=== PATIENT | female | born 1985 | race Caucasian/White ===

== ENCOUNTER 2017-05-07 06:16 | Day surgery (SDC) | payer MEDICAID, OTHER ==
[~2017-05-07] VITALS: Ht 177.8 cm; Wt 127.0 kg
--- OUTSIDE RECORDS SUMMARY | 2017-05-07 06:24 | XMS REPORT ---
Author Author ANGELA LATIF [facility] Address [facility] [place] [address] Care Team Providers Care Guest Service Representative Name Role Phone ANGELA LATIF Unavailable PROBLEMS Type Condition ICD9-CM Code CEN75-CM Code Onset Dates Condition Status SNOMED Code Problem Morbid obesity due to excess calories E66.01 Active 900661251 Problem Uses contraceptive implant for control Z78.9 Active 204152447 ALLERGIES Substance Reaction Event Type Date Status N.K.D.A. Unknown Non Drug Allergy Feb, Unknown SOCIAL HISTORY No smoking Hx information available PLAN OF CARE Activity Details Follow Up prn Reason: VITAL SIGNS Height 70 in 2016-03-03 Weight 294.1 lbs 2016-03-03 Temperature 97.8 degrees Fahrenheit 2016-03-03 Heart Rate 72 bpm 2016-03-03 Respiratory Rate 16 2016-03-03 BMI 42.19 kg/m2 2016-03-03 Blood pressure systolic 128 mmHg 2016-03-03 Blood pressure diastolic 70 mmHg 2016-03-03 MEDICATIONS No Known Medications RESULTS No Results PROCEDURES Procedure Date Ordered Related Diagnosis Body Site Office Visit, New Pt., Level 3 Mar 03, 2016 IMMUNIZATIONS No Known Immunizations
[2017-05-07] MEDS ORDERED: LACTATED RINGERS 1,000 ML IV ONE (06:30)
[2017-05-07] MEDS ORDERED: ONDANSETRON 4 MG/2 ML (SDV) Z0FRAN IVP ONE (06:30)
[2017-05-07] MEDS ORDERED: pnv (06:32)
--- NOTE | 2017-05-07 06:37 | ED Abdominal Pain ---
General Chief Complaint: Abdominal/GI Problems Stated Complaint: AB PAIN CHEST PAIN Source of Information: Patient History of Present Illness Date Seen by Provider: May 07, 2017 Time Seen by Provider: 06:25 Initial Comments PT ARRIVES VIA POV FROM HOME C/O SEVERE EPIGASTRIC PAIN SINCE 0200 THIS AM-RATES PAIN 8/10 PAIN RADIATES UP INTO CHEST, INTO BACK AND BOTH SHOULDERS NOTHING WORSENS OR IMPROVES PAIN--TRIED BAKING SODA, PEPCID AND BENADRYL WITHOUT RELIEF C/O NAUSEA AND VOMITED X 3 NO DIARRHEA NO SHORTNESS OF BREATH NO FEVER PT HAS HAD BLOATING/PRESSURE IN UPPER ABDOMEN IN PAST,AND HAS ALWAYS GONE AWAY WITH THE ABOVE MEASURES, BUT HAS NOT HAD PAIN LIKE THIS HAD BIG EASTER DINNER YESTERDAY AFTERNOON, THEN HAD LEFTOVERS AROUND 2100 LAST PM--[place], [place], ROLL NO ONE ELSE IS ILL PT IS 12 WEEKS --IS AB 0 NO LOWER ABDOMINAL PAIN/ PELVIC PAIN OR VAGINAL BLEEDING NO URINARY SYMPTOMS PCP/OB: DR. CANTU Allergies and Home Medications Allergies Coded Allergies: No Known Drug Allergies (Unverified , 05/07/17) Patient Home Medication List Home Medication List Reviewed: Yes Review of Systems Constitutional: no symptoms reported Respiratory: No Symptoms Reported Cardiovascular: See HPI Gastrointestinal: See HPI Genitourinary: See HPI Musculoskeletal: see HPI Skin: no symptoms reported Psychiatric/Neurological: No Symptoms Reported Endocrine: No Symptoms Reported Hematologic/Lymphatic: No Symptoms Reported Past Jgmdghy-Hcgngj-Pyxtlb Hx Patient Social History Alcohol Use: Denies Use Recreational Drug Use: No Smoking Status: Never a Smoker Recent Foreign Travel: No Contact w/Someone Who Travel: No Surgeries History of Surgeries: No Respiratory History of Respiratory Disorde: No Cardiovascular History of Cardiac Disorders: No Neurological History of Neurological Disord: No Reproductive System : Yes Last Menstrual Period: Feb 08, 2017 Hx : 6 Hx Para: 5 Hx Total # of Abortions (Spona: 0 Hx Reproductive Disorders: No Female Reproductive Disorders: Denies Genitourinary History of Genitourinary Disor: No Gastrointestinal History of Gastrointestinal Di: No Musculoskeletal History of Musculoskeletal Dis: No Endocrine History of Endocrine Disorders: No HEENT History of HEENT Disorders: No Cancer History of Cancer: No Psychosocial History of Psychiatric Problem: No Integumentary History of Skin or Integumenta: No Blood Transfusions History of Blood Disorders: No Physical Exam Vital Signs VS - Last 72 Hours, by Label 05/07/17 06:25 Temp 96.5 Pulse 74 Resp 18 B/P (MAP) 125/64 (84) Pulse Ox 100 O2 Delivery Room Air Capillary Refill : General Appearance: WD/WN, obese, other (ANXIOUS) HEENT: PERRL/EOMI, No scleral icterus (R), No scleral icterus (L) Neck: normal inspection Respiratory: chest non-tender, normal breath sounds, no respiratory distress, no accessory muscle use Cardiovascular: normal peripheral pulses, regular rate, rhythm, no edema, no JVD, no murmur Gastrointestinal: normal bowel sounds, no organomegaly, no pulsatile mass, No distended, No guarding, No rebound, tenderness (RUQ AND EPIGASTRIC AREA), No hernia, No mass Extremities: normal inspection, no pedal edema, no calf tenderness, normal capillary refill Back: normal inspection, no CVA tenderness, no vertebral tenderness 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, no motor/sensory deficits, alert, oriented x 3 Skin: normal color, warm/dry, No rash Progress/Results/Core Measures Results/Orders Lab Results Laboratory Tests Test 05/07/17 06:25 Range/Units White Blood Count 6.6 4.3-11.0 10^3/uL Red Blood Count 3.85 L 4.35-5.85 10^6/uL Hemoglobin 12.0 11.5-16.0 G/DL Hematocrit 34 L 35-52 % Mean Corpuscular Volume 88 80-99 FL Mean Corpuscular Hemoglobin 31 25-34 PG Mean Corpuscular Hemoglobin Concent 35 32-36 G/DL Red Cell Distribution Width 13.1 10.0-14.5 % Platelet Count 169 130-400 10^3/uL Mean Platelet Volume 10.7 H 7.4-10.4 FL Neutrophils (%) (Auto) 82 H 42-75 % Lymphocytes (%) (Auto) 13 12-44 % Monocytes (%) (Auto) 4 0-12 % Eosinophils (%) (Auto) 1 0-10 % Basophils (%) (Auto) 0 0-10 % Neutrophils # (Auto) 5.4 1.8-7.8 X 10^3 Lymphocytes # (Auto) 0.9 L 1.0-4.0 X 10^3 Monocytes # (Auto) 0.3 0.0-1.0 X 10^3 Eosinophils # (Auto) 0.1 0.0-0.3 10^3/uL Basophils # (Auto) 0.0 0.0-0.1 10^3/uL Sodium Level 137 135-145 MMOL/L Potassium Level 3.8 3.6-5.0 MMOL/L Chloride Level 106 98-107 MMOL/L Carbon Dioxide Level 23 21-32 MMOL/L Anion Gap 8 5-14 MMOL/L Blood Urea Nitrogen 7 7-18 MG/DL Creatinine 0.67 0.60-1.30 MG/DL Estimat Glomerular Filtration Rate > 60 BUN/Creatinine Ratio 10 Glucose Level 137 H 70-105 MG/DL Calcium Level 8.9 8.5-10.1 MG/DL Total Bilirubin 0.5 0.1-1.0 MG/DL Aspartate Amino Transf (AST/SGOT) 11 5-34 U/L Alanine Aminotransferase (ALT/SGPT) 18 0-55 U/L Alkaline Phosphatase 44 40-136 U/L Troponin I < 0.30 <0.30 NG/ML Total Protein 6.8 6.4-8.2 GM/DL Albumin 4.0 3.2-4.5 GM/DL Amylase Level 45 25-125 U/L Lipase 19 8-78 U/L Human Chorionic Gonadotropin, Quant 20362 H <5 MIU/ML My Orders Orders - NEREYDA WOODARD DO Saline Lock/Iv-Start (05/07/17 06:30) Amylase (05/07/17 06:30) Cbc With Automated Diff (05/07/17 06:30) Comprehensive Metabolic Panel (05/07/17 06:30) Hcg,Quantitative (05/07/17 06:30) Lipase (05/07/17 06:30) Troponin I (05/07/17 06:30) Abo Rh Type (05/07/17 06:30) Us Abdomen Complete [id number] (05/07/17 06:30) Us Ob Single Fetus<14 [id number] (05/07/17 06:30) Saline Lock/Iv-Start (05/07/17 06:30) Lactated Ringers (Lr 1000 Ml Iv Solution (05/07/17 06:30) Ondansetron Injection (Zofran Injectio (05/07/17 06:30) Ua Culture If Indicated (05/07/17 06:41) Fentanyl Injection (Sublimaze Injection (05/07/17 06:41) Medications Given in ED Current Medications Medications Dose Ordered Sig/Gurdeep Route Start Time Stop Time Status Last Admin Dose Admin Lactated Ringer's 1,000 ml @ 0 mls/hr Q0M ONCE IV 05/07/17 06:30 05/07/17 06:33 DC 05/07/17 06:35 0 MLS/HR Ondansetron HCl 4 mg ONCE ONCE IVP 05/07/17 06:30 05/07/17 06:33 DC 05/07/17 06:35 4 MG Vital Signs/I&O Vital Sign - Last 12Hours 05/07/17 06:25 Temp 96.5 Pulse 74 Resp 18 B/P (MAP) 125/64 (84) Pulse Ox 100 O2 Delivery Room Air Progress Note : Progress Note PAIN MUCH IMPROVED WITH FENTANYL. NAUSEA RESOLVED WITH ZOFRAN Diagnostic Imaging Comments ULTRASOUND--NORMAL 12 WEEKS 4 DAYS IUP, NORMAL FHR OF 150. MULTIPLE GALLSTONES, WITH STONE LODGED IN NECK OF GALLBLADDER, WITH DUCTAL DILATION OF 7 MM, NO WALL THICKENING OR OTHER EVIDENCE OF ACUTE CHOLECYSTITIS--PER TECH REPORT AT 0755, AND PER RADIOLOGIST REPORT @ 0838 Reviewed: Reviewed by Me Departure Communication (Admissions) Progress Notes 0800--SPOKE WITH DR. MCINTOSH, ACCEPTS PT FOR ADMIT. WILL CONSULT OB 0801--SPOKE WITH DR. HARRINGTON, FOR OB CONSULT. Impression Impression: Primary Impression: Cholelithiasis affecting in first trimester, antepartum Disposition: ADMITTED INPATIENT Condition: Improved Admissions Decision to Admit Reason: Admit from ER (General) Decision to Admit/Date: May 07, 2017 Time/Decision to Admit Time: 08:00 Departure-Patient Inst. Referrals: PAULO CANTU DO (PCP) Primary Care Physician NEREYDA WOODARD DO May 07, 2017 06:37
[2017-05-07 06:40] LABS: BASOPHILS % (AUTO) 0 % (0-10); EOSINOPHILS # (AUTO) 0.1 10^3/uL (0.0-0.3); EOSINOPHILS % (AUTO) 1 % (0-10); HEMATOCRIT 34 % (35-52); LYMPHOCYTES # (AUTO) 0.9 X 10^3 (1.0-4.0); LYMPHOCYTES % (AUTO) 13 % (12-44); MEAN CORPUSCULAR HEMOGLOBIN 31 PG (25-34); MEAN CORPUSCULAR HGB CONC 35 G/DL (32-36); MEAN CORPUSCULAR VOLUME 88 FL (80-99); MEAN PLATELET VOLUME 10.7 FL (7.4-10.4); MONOCYTES # (AUTO) 0.3 X 10^3 (0.0-1.0); MONOCYTES % (AUTO) 4 % (0-12); NEUTROPHILS # (AUTO) 5.4 X 10^3 (1.8-7.8); NEUTROPHILS % (AUTO) 82 % (42-75); PLATELET COUNT 169 10^3/uL (130-400); RED BLOOD COUNT 3.85 10^6/uL (4.35-5.85); RED CELL DISTRIBUTION WIDTH 13.1 % (10.0-14.5); WHITE BLOOD COUNT 6.6 10^3/uL (4.3-11.0)
[2017-05-07] MEDS ORDERED: fentaNYL INJECTION 100 MCG/2 ML AMP IVP STA ×2 (06:41→08:09)
[2017-05-07 07:03] LABS: ALANINE AMINOTRANSFERASE 18 U/L (0-55); ALKALINE PHOSPHATASE 44 U/L (40-136); AMYLASE 45 U/L (25-125); BILIRUBIN,TOTAL 0.5 MG/DL (0.1-1.0); BUN/CREATININE RATIO 10; CALCIUM 8.9 MG/DL (8.5-10.1); CARBON DIOXIDE 23 MMOL/L (21-32); CHLORIDE 106 MMOL/L (98-107); CREATININE SERUM 0.67 MG/DL (0.60-1.30); GFR ESTIMATED > 60; GLUCOSE 137 MG/DL (70-105); LIPASE 19 U/L (8-78); POTASSIUM 3.8 MMOL/L (3.6-5.0); SODIUM 137 MMOL/L (135-145); TOTAL PROTEIN 6.8 GM/DL (6.4-8.2)
[2017-05-07 08:30] LABS: BILIRUBIN,URINE NEGATIVE (NEGATIVE); CLARITY,URINE SLIGHTLY CLOUDY; COLOR,URINE YELLOW; GLUCOSE, URINE (UA) NEGATIVE (NEGATIVE); KETONES,URINE 1+ (NEGATIVE); LEUKOCYTE ESTERASE ,URINE 1+ (NEGATIVE); NITRITE,URINE NEGATIVE (NEGATIVE); PH,URINE 8 (5-9); PROTEIN,URINE NEGATIVE (NEGATIVE); UROBILINOGEN,URINE NORMAL (NORMAL)
--- NOTE | 2017-05-07 08:33 | Diagnostic Imaging Report ---
INDICATION: Acute onset of abdominal pain earlier in the day. TECHNIQUE: Multiple real-time dimas scale sonographic images of the abdomen. CORRELATION STUDY: None FINDINGS: LIVER: Mild increased echotexture within the visualized portions of the liver. There is normal, hepatopedal direction of flow within the main portal vein. Liver length 18 cm. GALLBLADDER: Multiple shadowing gallstones are present. This includes what appears to be non-mobile enlarged in the gallbladder neck. COMMON BILE DUCT: Mildly dilated at 7 mm. PANCREAS: Limited in visualization. The visualized portions appearing unremarkable. SPLEEN: Borderline at 12.5 x 5.4 x 5.9 cm. ABDOMINAL AORTA: Unremarkable. INFERIOR VENA CAVA: Limited in visualization. RIGHT KIDNEY: 11.6 cm. Unremarkable. LEFT KIDNEY: 14.0 cm. Unremarkable. OTHER: None. IMPRESSION: 1. Cholelithiasis. Additional stone appears to be lodged in the gallbladder neck. Additionally, there is mild dilatation of the common bile duct. 2. Mild increased echogenicity of the liver parenchyma, borderline in size, may reflect some degree of hepatic steatosis. Dictated by: Dictated on workstation # [id number]
--- NOTE | 2017-05-07 08:34 | Diagnostic Imaging Report ---
PROCEDURE: US OB SINGLE FETUS <14 WKS. TECHNIQUE: Multiple, limited real-time grayscale images were obtained over the gravid uterus in various projections. INDICATION: Acute onset abdominal pain. FINDINGS: Limited obstetrical sonogram imaging demonstrates an early viable intrauterine . The gestational sac has a morphological configuration appearing unremarkable. No abnormal perigestational fluid collections. The crown/rump length is 5.95 cm for an estimated age of 12 weeks 4 days. cardiac activity was 150 BPM. Imaging of the bilateral maternal adnexa demonstrates nonvisualization of the ovaries. This could be owing to obscuration by bowel gas or positioning. No significant free pelvic fluid. IMPRESSION: Very limited obstetrical sonogram imaging demonstrates an early viable intrauterine with an estimated age of 12 weeks 4 days for a sonographically estimated date of delivery of 11/15/2017. Dictated by: Dictated on workstation # [id number]
[2017-05-07 08:47] LABS: AMORPHOUS SEDIMENT,UR LARGE AMOR PHOSPHATE /LPF; BACTERIA,URINE NEGATIVE /HPF; SQUAMOUS EPITHELIAL CELL,UR RARE /HPF
[2017-05-07 09:00] VITALS: BP 107/61
[2017-05-07] MEDS ORDERED: ONDANSETRON 4 MG/2 ML (SDV) Z0FRAN IV PRN (09:30)
[2017-05-07] MEDS ORDERED: CATHETER FLUSH 10 ML SYR IV PRN (09:30)
[2017-05-07] MEDS ORDERED: INFLUENZA TRIvalent 2017-2018 0.5 ML/45 MCG SYR IM ONE (09:45)
[2017-05-07] MEDS: D5 1/2 NS W/KCL 20 MEQ/L 1,000 ML IV SCH ×3 (09:54→23:51)
[2017-05-07] MEDS ORDERED: PNV1TABL81 PO (11:38)
[2017-05-07] MEDS ORDERED: ONDA4TAB11 PO (11:38)
[2017-05-07 12:30] VITALS: BP 109/55
[2017-05-07] MEDS: fentaNYL INJECTION 100 MCG/2 ML AMP IV PRN (13:43)
[2017-05-07 15:28] VITALS: BP 108/58
--- NOTE | 2017-05-07 18:53 | History & Physicial ---
History of Present Illness History of Present Illness Reason for visit/HPI acute onset of epigastric pain, radiating to the back. Evaluation has confirmed gallstones with clinical concern for early acute cholecystitis Date of Admission May 07, 2017 at 8:00 am Date Seen by Provider: May 07, 2017 Time Seen by Provider: 18:15 I consulted on this patient on 05/07/17 18:49 Attending Physician Urszula Millan MD Admitting Physician Karen Hernández DO Consult Allergies and Home Medications Allergies Coded Allergies: No Known Drug Allergies (Unverified , 05/07/17) Home Medications Ondansetron 4 Mg Tab.rapdis, 4 MG PO UD PRN for NAUSEA/VOMITING-1ST LINE, ( Reported) Pnv No.122/Iron/Folic Acid 1 Each Tablet, 1 TAB PO DAILY, (Reported) Patient Home Medication List Home Medication List Reviewed: Yes Past Ujktemz-Ykqxgu-Efpkyf Hx Patient Social History Marrital Status: Employed/Student: unemployed Alcohol Use: Denies Use Recreational Drug Use: No Smoking Status: Never a Smoker 2nd Hand Smoke Exposure: No Physical Abuse Screen: No Sexual Abuse: No Recent Foreign Travel: No Contact w/other who traveled: No Recent Hopitalizations: No Recent Infectious Disease Expo: No Seasonal Allergies Seasonal Allergies: No Surgeries No Respiratory No Cardiovascular No Neurological No Reproductive System : Yes Expected Date of Delivery: Nov 18, 2017 Last Menstrual Period: Feb 08, 2017 Hx : 6 Hx Para: 5 Hx Total # of Abortions (Spona: 0 Hx Reproductive Disorders: No Female Reproductive Disorders: Denies Genitourinary No Gastrointestinal Yes (cholylithiasis 05/07/17) Gall Bladder Disease Musculoskeletal No Endocrine History of Endocrine Disorders: No HEENT History of HEENT Disorders: No Cancer No Psychosocial History of Psychiatric Problem: No Integumentary History of Skin or Integumenta: Yes (Hydradynitis suppertiva) Blood Transfusions History of Blood Disorders: No Constitutional: no symptoms reported EENTM: no symptoms reported Respiratory: no symptoms reported Cardiovascular: no symptoms reported Gastrointestinal: see HPI Genitourinary: no symptoms reported Musculoskeletal: no symptoms reported Skin: no symptoms reported Psychiatric/Neurological: No Symptoms Reported Physical Exam Vital Signs Vital Signs - First Documented 05/07/17 06:25 Temp 96.5 Pulse 74 Resp 18 B/P (MAP) 125/64 (84) Pulse Ox 100 O2 Delivery Room Air Capillary Refill : Less Than 3 Seconds General Appearance: No Apparent Distress Neck: Normal Inspection Respiratory: Lungs Clear Cardiovascular: Regular Rate, Rhythm Gastrointestinal: Non Tender, Soft Neurologic/Psychiatric: Alert, Oriented x3 Skin: Normal Color Assessment/Plan Assessment and Plan lady with gallstones, dilated common bile duct and clinical concern for early acute cholecystitis. End of first term . Reasonable to institute intravenous antibiotics and observe her. Should her pain continue, it would be appropriate to proceed with minimally invasive cholecystectomy. I have explicitly discussed the risk of miscarriage, emphasizing the importance of addressing her surgical condition appropriately. She seems to comprehend. I have also discussed her condition with Dr. Underwood, one of our obstetricians, and she confirms the safety of using antibiotics, general anesthetic etc. with a very low incidence of miscarriage at this time of her . Problems: Admission Diagnosis Admission Status: Observation Clinical Quality Measures DVT/VTE Risk/Contraindication: Risk Factor Score Per Nursin RFS Level Per Nursing on Admit: 1=Low/No VTE PPX URSZULA MILLAN MD May 07, 2017 6:53 pm
[2017-05-07 19:18] VITALS: BP 120/59
[2017-05-07] MEDS: AMPICILLIN INJECTION 2,000 MG in NS (IVPB) 100 ML IV SCH (20:25)
[2017-05-08] MEDS: AMPICILLIN INJECTION 2,000 MG in NS (IVPB) 100 ML IV SCH ×3 (00:08→12:35)
[2017-05-08 00:47] VITALS: BP 116/53
[2017-05-08 04:45] VITALS: BP 115/61
[2017-05-08] MEDS: D5 1/2 NS W/KCL 20 MEQ/L 1,000 ML IV SCH ×2 (07:54→12:35)
[2017-05-08 08:00] VITALS: BP 102/47
[2017-05-08 08:00] LABS: BASOPHILS % (AUTO) 0 % (0-10); EOSINOPHILS # (AUTO) 0.1 10^3/uL (0.0-0.3); EOSINOPHILS % (AUTO) 1 % (0-10); HEMATOCRIT 33 % (35-52); HEMOGLOBIN 11.6 G/DL (11.5-16.0); LYMPHOCYTES # (AUTO) 1.9 X 10^3 (1.0-4.0); LYMPHOCYTES % (AUTO) 35 % (12-44); MEAN CORPUSCULAR HEMOGLOBIN 31 PG (25-34); MEAN CORPUSCULAR HGB CONC 35 G/DL (32-36); MEAN CORPUSCULAR VOLUME 89 FL (80-99); MEAN PLATELET VOLUME 10.5 FL (7.4-10.4); MONOCYTES # (AUTO) 0.4 X 10^3 (0.0-1.0); MONOCYTES % (AUTO) 7 % (0-12); NEUTROPHILS # (AUTO) 3.3 X 10^3 (1.8-7.8); NEUTROPHILS % (AUTO) 58 % (42-75); PLATELET COUNT 162 10^3/uL (130-400); RED BLOOD COUNT 3.74 10^6/uL (4.35-5.85); RED CELL DISTRIBUTION WIDTH 13.6 % (10.0-14.5); WHITE BLOOD COUNT 5.6 10^3/uL (4.3-11.0)
[2017-05-08 08:22] LABS: ALANINE AMINOTRANSFERASE 14 U/L (0-55); ALBUMIN 3.5 GM/DL (3.2-4.5); ALKALINE PHOSPHATASE 43 U/L (40-136); AMYLASE 36 U/L (25-125); BILIRUBIN,TOTAL 0.5 MG/DL (0.1-1.0); BUN/CREATININE RATIO 5; CALCIUM 8.5 MG/DL (8.5-10.1); CARBON DIOXIDE 21 MMOL/L (21-32); CHLORIDE 109 MMOL/L (98-107); CREATININE SERUM 0.62 MG/DL (0.60-1.30); GFR ESTIMATED > 60; GLUCOSE 100 MG/DL (70-105); LIPASE 16 U/L (8-78); POTASSIUM 3.6 MMOL/L (3.6-5.0); SODIUM 138 MMOL/L (135-145)
--- NOTE | 2017-05-08 08:57 | Progress Note-Standard ---
Standard Progress Note Progress Notes/Assess & Plan Date Seen by Provider: May 08, 2017 Time Seen by Provider: 08:10 Progress/Assessment & Plan Epigastric abdominal pain radiating around the subcostal region on the right side more severe. Slight tenderness on examination. Suspect she has acute cholecystitis and therefore it is prudent to proceed with cholecystectomy. Operative details, low incidence of miscarriage etc. discussed with the patient and she seems to be in agreement. Final Diagnosis Gallstones with acute cholecystitis URSZULA MCINTOSH MD May 08, 2017 8:57 am
--- NOTE | 2017-05-08 08:58 | Progress Note-Pre Operative ---
Pre-Operative Progress Note H&P Reviewed The H&P was reviewed, patient examined and no changes noted. Date Seen by Provider: May 08, 2017 Time Seen by Provider: 08:10 Date H&P Reviewed: May 08, 2017 Time H&P Reviewed: 08:57 Pre-Operative Diagnosis: Gallstones with acute cholecystitis URSZULA MCINTOSH MD May 08, 2017 8:58 am
[2017-05-08] MEDS: fentaNYL INJECTION 100 MCG/2 ML AMP IV PRN ×5 (10:01→23:28)
[2017-05-08 12:00] VITALS: BP 103/57
[2017-05-08] MEDS ORDERED: proPOfol 200 MG/20 ML (DIPRIVAN) VIAL IV ONE (13:14)
[2017-05-08] MEDS ORDERED: LIDOCAINE PF 2% 5 ML (XYLOCAINE) VIAL ONE (13:14)
[2017-05-08] MEDS ORDERED: ONDANSETRON 4 MG/2 ML (SDV) Z0FRAN ONE (13:14)
[2017-05-08] MEDS ORDERED: fentaNYL INJECTION 100 MCG/2 ML AMP ONE ×2 (13:14→14:22)
[2017-05-08] MEDS ORDERED: SEVOFLURANE (ULTANE) 15 ML INHAL SOLN ONE ×6 (13:14→15:08)
[2017-05-08] MEDS ORDERED: BUP/EPI 0.5% 1:200,000 (SENSORCAINE) 30 ML VIAL ONE (13:28)
[2017-05-08] MEDS: LACTATED RINGERS 1,000 ML IV PRN ×2 (13:49→14:35)
[2017-05-08] MEDS ORDERED: AMPICILLIN 1000 MG INJECTION (IV/IM) ONE (14:02)
[2017-05-08] MEDS ORDERED: ROCURONIUM 10 MG/ML 5 ML SYRINGE IV ONE (14:15)
[2017-05-08] MEDS ORDERED: SUCCINYLCHOLINE INJ 100 MG/5 ML SYR ONE (14:15)
[2017-05-08] MEDS ORDERED: HYDROmorphone (DILAUDID) 2 MG/ML VIAL ONE (14:55)
[2017-05-08] MEDS ORDERED: morphine INJ 10 MG/ML 1ML (SYR OR VIAL) ONE (14:55)
[2017-05-08] MEDS ORDERED: MEPERIDINE (DEMEROL) INJ 50 MG/ML ONE (14:56)
--- NOTE | 2017-05-08 15:13 | Operative Report ---
Operative Report Date of Procedure/Surgery May 08, 2017 Surgeon (s) URSZULA MCINTOSH MD Bag Loader (s): N/A Post-Operative Diagnosis Gallstones with acute cholecystitis Procedure Performed Robotic-assisted cholecystectomy Description of Procedure Anesthesia Type: General Estimated blood loss (mL): Minimal Specimen(s) collected/removed Gallbladder with stones Description of the Procedure Indication for the procedure: This lady, who is 12 weeks , presented with symptomatic gallstones and features of early acute cholecystitis. After a brief course of intravenous antibiotics, due to persistent symptoms, it was felt reasonable to proceed with cholecystectomy using minimally invasive technique. Informed consent was obtained after reviewing the operative details and risks of miscarriage, potential for postoperative ERCP etc. Description of the procedure: She was placed supine on the operative table and general anesthesia induced using an endotracheal tube. A gram of ampicillin was administered intravenously as prophylaxis against wound infection. Sequential compression devices were placed around her legs, to minimize the risk of venous thrombosis. Abdomen was prepared and draped in the usual sterile manner. A supraumbilical incision was made and pneumoperitoneum established using a Veress needle. Intra -abdominal pressure was maintained at 15 mmHg, using carbon dioxide insufflation. A 12 mm trocar was placed and anatomy visualized using the high definition, 3-dimensional laparoscope, associated with da Nuha system. Gallbladder was acutely inflamed with severe edema around the body of the gallbladder. Under direct view, I placed an 8 mm trocar over each side of the abdomen, followed by a 5 mm trocar over the left upper quadrant. The patient was then turned into reverse Trendelenburg position, with the right side tilted up. The robotic system was then in place. The fundus of the gallbladder was retracted cephalad and the infundibulum grasped with Cadiere forceps. Inflamed tissue around the neck of the gallbladder was incised using the hook cautery, delineating the cystic duct and the artery. Both were controlled between locking clips. Cholecystectomy was completed using the hook cautery itself. Subhepatic space was irrigated with saline and the gallbladder placed in an Endo Catch bag, being removed via the infraumbilical trocar site. The fascia over this incision was closed using #1 Vicryl using the Tyron Monroe device, under direct laparoscopic view. Subcutaneous tissue was approximated using 3-0 Vicryl and skin with 4-0 Vicryl, in a subcuticular fashion. 0.5 percent Marcaine with epinephrine was infiltrated along the incisions, both pre-and family and at the conclusion of the operation. She tolerated the procedure well, was extubated in the operating room and taken to the recovery room in a stable condition. Findings of the Procedure See op report Allergies and Home Medications Allergies Coded Allergies: No Known Drug Allergies (Unverified , 05/07/17) Home Medications Ondansetron 4 Mg Tab.rapdis, 4 MG PO UD PRN for NAUSEA/VOMITING-1ST LINE, ( Reported) Pnv No.122/Iron/Folic Acid 1 Each Tablet, 1 TAB PO DAILY, (Reported) Patient Home Medication List Home Medication List Reviewed: Yes URSZULA MCINTOSH MD May 08, 2017 3:13 pm
--- NOTE | 2017-05-08 15:14 | Consultation (CHS) ---
HPI History of Present Illness: Late entry Consult note - patient seen on 05/07/17. This is a [address] Hernández'ellyn who present to ER w/ onset of RUQ abdominal pain over night. Pt reports pain radiates to her back on the R. Denies n/v. No known similar symptoms previously. Patient ate late in the evening and thought it may be related to that. Pain medication in the ER improved pain but when it wears off the pain returns. Denies n/v/d. Patient is 12 weeks . Has had uncomplicated thus far. No previous issues or complications. Date seen by provider: May 07, 2017 Time Seen by Provider: 08:30 Attending Physician Filemon Millan MD PCP Karen Hernández DO Consult Date of Admission May 07, 2017 at 08:00 Home Medications Home Medications Reviewed patient Home Medication Reconciliation performed by pharmacy medication reconciliations instructor adjunct surgical technician and/or nursing. Patients Allergies have been reviewed. Allergies Coded Allergies: No Known Drug Allergies (Unverified , 05/07/17) XOP-Xrouai-Uiifru Hx Patient Social History Marrital Status: Employed/Student: unemployed Alcohol Use: Denies Use Recreational Drug Use: No Smoking Status: Never a Smoker 2nd Hand Smoke Exposure: No Recent Foreign Travel: No Contact w/other who traveled: No Recent Hopitalizations: No Recent Infectious Disease Expo: No Physical Abuse Screen: No Sexual Abuse: No Past Medical History Hiddratenitis suppuritiva Review of Systems (CHC) Constitutional: see HPI Reviewed Test Results Reviewed Test Results Lab Laboratory Tests 05/07/17 06:25: White Blood Count 6.6, Red Blood Count 3.85L, Hemoglobin 12.0, Hematocrit 34L, Mean Corpuscular Volume 88, Mean Corpuscular Hemoglobin 31, Mean Corpuscular Hemoglobin Concent 35, Red Cell Distribution Width 13.1, Platelet Count 169, Mean Platelet Volume 10.7H, Neutrophils (%) (Auto) 82H, Lymphocytes (%) (Auto) 13, Monocytes (%) (Auto) 4, Eosinophils (%) (Auto) 1, Basophils (%) (Auto) 0, Neutrophils # (Auto) 5.4, Lymphocytes # (Auto) 0.9L, Monocytes # (Auto) 0.3, Eosinophils # (Auto) 0.1, Basophils # (Auto) 0.0, Sodium Level 137, Potassium Level 3.8, Chloride Level 106, Carbon Dioxide Level 23, Anion Gap 8, Blood Urea Nitrogen 7, Creatinine 0.67, Estimat Glomerular Filtration Rate > 60, BUN/ Creatinine Ratio 10, Glucose Level 137H, Calcium Level 8.9, Total Bilirubin 0.5 , Aspartate Amino Transf (AST/SGOT) 11, Alanine Aminotransferase (ALT/SGPT) 18, Alkaline Phosphatase 44, Troponin I < 0.30, Total Protein 6.8, Albumin 4.0, Amylase Level 45, Lipase 19, Human Chorionic Gonadotropin, Quant [id number] 05/07/17 08:17: Urine Color YELLOW, Urine Clarity SLIGHTLY CLOUDY, Urine pH 8, Urine Specific [place] 1.010L, Urine Protein NEGATIVE, Urine Glucose (UA) NEGATIVE, Urine Ketones 1+H, Urine Nitrite NEGATIVE, Urine Bilirubin NEGATIVE, Urine Urobilinogen NORMAL, Urine Leukocyte Esterase 1+H, Urine RBC (Auto) NEGATIVE, Urine RBC NONE, Urine WBC NONE, Urine Squamous Epithelial Cells RARE, Urine Crystals NONE, Urine Amorphous Sediment LARGE EVGENY PHOSPHATEH, Urine Bacteria NEGATIVE, Urine Casts NONE, Urine Mucus NEGATIVE, Urine Culture Indicated NO 05/08/17 07:50: White Blood Count 5.6, Red Blood Count 3.74L, Hemoglobin 11.6, Hematocrit 33L, Mean Corpuscular Volume 89, Mean Corpuscular Hemoglobin 31, Mean Corpuscular Hemoglobin Concent 35, Red Cell Distribution Width 13.6, Platelet Count 162, Mean Platelet Volume 10.5H, Neutrophils (%) (Auto) 58, Lymphocytes (%) (Auto) 35 , Monocytes (%) (Auto) 7, Eosinophils (%) (Auto) 1, Basophils (%) (Auto) 0, Neutrophils # (Auto) 3.3, Lymphocytes # (Auto) 1.9, Monocytes # (Auto) 0.4, Eosinophils # (Auto) 0.1, Basophils # (Auto) 0.0, Sodium Level 138, Potassium Level 3.6, Chloride Level 109H, Carbon Dioxide Level 21, Anion Gap 8, Blood Urea Nitrogen 3L, Creatinine 0.62, Estimat Glomerular Filtration Rate > 60, BUN/ Creatinine Ratio 5, Glucose Level 100, Calcium Level 8.5, Total Bilirubin 0.5, Aspartate Amino Transf (AST/SGOT) 9, Alanine Aminotransferase (ALT/SGPT) 14, Alkaline Phosphatase 43, Total Protein 6.0L, Albumin 3.5, Amylase Level 36, Lipase 16 Physical Exam-([facility]) Physical Exam Vital Signs VS - Last 72 Hours, by Label 05/07/17 05/07/17 05/07/17 05/07/17 06:25 08:41 09:00 12:30 Temp 96.5 100.0 98.2 99.0 Pulse 74 72 83 66 Resp 18 14 20 14 B/P (MAP) 125/64 (84) 107/62 107/61 (76) 109/55 (73) Pulse Ox 100 96 98 98 O2 Delivery Room Air Room Air Room Air Room Air 05/07/17 05/07/17 05/08/17 05/08/17 15:28 19:18 00:47 04:45 Temp 98.7 98.6 98.5 97.9 Pulse 73 77 70 67 Resp 14 14 17 18 B/P (MAP) 108/58 (75) 120/59 (79) 116/53 (74) 115/61 (79) Pulse Ox 99 99 99 98 O2 Delivery Room Air Room Air Room Air Room Air 05/08/17 05/08/17 08:00 12:00 Temp 98.1 98.8 Pulse 63 70 Resp 16 16 B/P (MAP) 102/47 (65) 103/57 (72) Pulse Ox 98 100 O2 Delivery Room Air Room Air Capillary Refill : Less Than 3 Seconds General Appearance: WD/WN, no apparent distress HEENT: PERRL/EOMI Respiratory: lungs clear, normal breath sounds, no respiratory distress, no accessory muscle use Cardiovascular: regular rate, rhythm Gastrointestinal: soft, No guarding, No rebound, tenderness (RUQ) Neurologic/Psychiatric: alert, normal mood/affect, oriented x 3 Skin: normal color, warm/dry Assessment/Plan Assessment/Plan Admission Status: Observation (1) Cholelithiasis affecting in first trimester, antepartum Status: Acute Assessment & Plan: Admitted to Dr. Millan for surgical management. Will doppler FHT q shift. Pain controlled with current regimen. Clinical Quality Measures DVT/VTE Risk/Contraindication: Risk Factor Score Per Nursin RFS Level Per Nursing on Admit: 1=Low/No VTE PPX MARICRUZ HARRINGTON DO May 08, 2017 15:14
[2017-05-08] MEDS ORDERED: HYDROcodone/APAP 5 MG/325 MG (LORTAB) TAB PO PRN (15:15)
[2017-05-08] MEDS ORDERED: ACHD5005 PO (15:15)
--- NOTE | 2017-05-08 15:15 | Discharge Inst-Simple/Standard ---
Discharge Inst-Standard Discharge Medications New, Converted or Re-Newed RX: RX on Chart Patient Instructions/Follow Up Plan of Care/Instructions/FU: Band-Aids of prior to discharge. Follow-up in week. To use incentive spirometry at home Activity as Tolerated: Yes Discharge Diet: No Restrictions URSZULA MCINTOSH MD May 08, 2017 3:15 pm
[2017-05-08] MEDS: morphine INJ 10 MG/ML 1ML (SYR OR VIAL) IVP PRN ×3 (15:30→15:38)
[2017-05-08] MEDS ORDERED: ONDANSETRON 4 MG/2 ML (SDV) Z0FRAN IVP PRN (15:30)
[2017-05-08] MEDS: HYDROmorphone (DILAUDID) 2 MG/ML VIAL IVP PRN ×2 (15:45→15:55)
[2017-05-08 16:20] VITALS: BP 117/74
[2017-05-08 20:00] VITALS: BP 112/55
[2017-05-09 00:10] VITALS: BP 121/58
[2017-05-09] MEDS: fentaNYL INJECTION 100 MCG/2 ML AMP IV PRN ×2 (02:02→04:10)
[2017-05-09 03:52] VITALS: BP 116/64
[2017-05-09 08:00] VITALS: BP 110/61
[2017-05-09] MEDS: oxyCODONE/APAP 5/325MG (PERCOCET 5) TABLET PO PRN ×2 (08:01→12:16)
--- NOTE | 2017-05-09 11:51 | Progress Note-Standard ---
Standard Progress Note Progress Notes/Assess & Plan Date Seen by Provider: May 09, 2017 Time Seen by Provider: 11:50 Progress/Assessment & Plan Epigastric abdominal pain radiating around the subcostal region on the right side more severe. Slight tenderness on examination. Suspect she has acute cholecystitis and therefore it is prudent to proceed with cholecystectomy. Operative details, low incidence of miscarriage etc. discussed with the patient and she seems to be in agreement. Good vgho3vs recovery. Incisions dry.Could be discharged Final Diagnosis Gallstones with acute cholecystitis URSZULA MCINTOSH MD May 09, 2017 11:51 am
[2017-05-09 12:00] VITALS: BP 109/55
--- NOTE | 2017-05-09 14:42 | Anesthesia-General Post-Op ---
General Patient Condition Mental Status/LOC: Same as Preop Cardiovascular: Satisfactory Nausea/Vomiting: Absent Respiratory: Satisfactory Pain: Controlled Complications: Absent Post Op Complications Complications None Follow Up Care/Instructions Patient Instructions None needed. Anesthesia/Patient Condition Patient Condition Patient is doing well, no complaints, stable vital signs, no apparent adverse anesthesia problems. No complications reported per nursing. TUTU HUANG CRNA May 09, 2017 14:42
== END 2017-05-09 14:50 | disposition home or self-care (01) ==
LOC: ER 06:20 → UNDOADMOB 08:00 → 4TH 08:00 → SDC 09:00 → 4TH 09:00 → SDC 05-09 14:50 → UNDODISOB 05-09 14:50
PROVIDERS: ATTEND Surgery
DX: O99.611 Diseases of the digestive system complicating pregnancy, first trimester (principal); K80.10 Calculus of gallbladder with chronic cholecystitis without obstruction; Z3A.12 12 weeks gestation of pregnancy
CPT/HCPCS: 36415; 76700; 76801; 80053; 81000; 82150; 83690; 84484; 84702; 85025; 86900; 86901; 87081; 88304; 96361; 96374; 96375; 96376; G0378

== ENCOUNTER 2017-11-12 13:05 | Outpatient (CLI) | payer MEDICAID ==
[~2017-11-12] VITALS: Ht 177.8 cm; Wt 131.3 kg
[~2017-11-12 13:05] MED LIST: ACHD5005 PO; ONDA4TAB11 PO; PNV1TABL81 PO; pnv
[2017-11-12] MEDS ORDERED: DOXY1TAB3 PO (13:20)
[2017-11-12] MEDS ORDERED: POLY119P12 PO (13:20)
[2017-11-12] MEDS ORDERED: RANI150T90 PO (13:20)
[2017-11-12] MEDS ORDERED: PROM25TA14 PO (13:20)
[2017-11-12 13:22] VITALS: BP 135/84
== END 2017-11-12 14:26 | disposition home or self-care (01) ==
LOC: PREOP 13:05
PROVIDERS: ATTEND Obstetrics & Gynecology
DX: Z01.818 Encounter for other preprocedural examination (principal)
CPT/HCPCS: 87081

== ENCOUNTER 2017-11-14 20:00 | Inpatient (IN) | payer OTHER, MEDICAID ==
[~2017-11-14] VITALS: Ht 177.8 cm; Wt 130.2 kg
[~2017-11-14 20:00] MED LIST changes: +DOXY1TAB3 PO; +POLY119P12 PO; +PROM25TA14 PO; +RANI150T90 PO
[2017-11-15] VITALS (52 sets, daily range): BP systolic 110–156; BP diastolic 64–95
--- OUTSIDE RECORDS SUMMARY | 2017-11-15 06:05 | XMS REPORT ---
Author Author PAULO CANTU Organization [facility] Address [address] [place] [address] Care Team Providers Care Enterprise Systems Manager Name Role Phone GUSTAVOBENJIEABELANGYT Unavailable PROBLEMS Type Condition ICD9-CM Code RUK98-SQ Code Onset Dates Condition Status SNOMED Code Problem Grand multiparity Z64.1 Active 61254020 Problem Chloasma L81.1 Active 36985429 Problem Diseases of the skin and subcutaneous tissue complicating , unspecified trimester O99.719 Active 499723137 Problem Uterine size date discrepancy, third trimester O26.843 Active Problem Other specified related conditions, third trimester O26.893 Active 857608885 Problem Type A blood, Rh negative Z67.11 Active 751388953 Problem Abnormal glucose tolerance test R73.02 Active 569961489 Problem Other specified related conditions, unspecified trimester O26.899 Active 131452725 Problem Heartburn R12 Active 66736589 Problem History of general anesthesia Z98.890 Active 6731077956644 Problem Nausea and vomiting during O21.9 Active 44033810 Problem Encounter for supervision of other normal , third trimester Z34.83 Active 43349260 Problem Morbid obesity due to excess calories E66.01 Active 075623180 Problem Obesity complicating , third trimester O99.213 Active 767553210725 Problem Constipation, unspecified K59.00 Active 94922206 Problem Disease of digestive system affecting in third trimester O99.613 Active 126782860 ALLERGIES No Known Allergies ENCOUNTERS Encounter Location Date Diagnosis [facility] [id number] [place] [id number] Nov, [facility] [address] [id number] [place] [id number] Oct, Encounter for supervision of other normal , third trimester Z34.83 ; Grand multiparity Z64.1 ; Obesity complicating , third trimester O99.213 ; Disease of digestive system affecting in third trimester O99.613 ; Heartburn R12 ; Uterine size date discrepancy, third trimester O26.843 ; Constipation, unspecified K59.00 ; Nausea and vomiting during O21.9 ; Type A blood, Rh negative Z67.11 and BMI 40.0-44.9, adult Z68.[address] [place] [id number] Oct, Encounter for supervision of other normal , third trimester Z34.83 ; Grand multiparity Z64.1 ; Obesity complicating , third trimester O99.213 ; Disease of digestive system affecting in third trimester O99.613 ; Heartburn R12 ; Other specified related conditions , third trimester O26.893 and Type A blood, Rh negative Z67.11 [address] [place] [id number] Oct, Encounter for supervision of other normal , third trimester Z34.83 ; Grand multiparity Z64.1 ; Obesity complicating , third trimester O99.213 ; Other specified related conditions, third trimester O26.893 ; Heartburn R12 ; Type A blood, Rh negative Z67.11 ; Encounter for screening for Streptococcus B Z36.85 and Uterine size date discrepancy, third trimester O26.[address] [id number] [id number] Sep, Encounter for supervision of other normal , third trimester Z34.83 ; Nausea and vomiting during O21.9 ; Other specified related conditions, third trimester O26.893 ; Heartburn R12 ; Lower abdominal pain, unspecified R10.30 ; Other specified related conditions, unspecified trimester O26.899 ; Encounter for immunization Z23 and Grand multiparity Z64.1 [address] [place] [id number] Sep, Encounter for supervision of other normal , third trimester Z34.83 ; Nausea and vomiting during O21.9 ; Diseases of the skin and subcutaneous tissue complicating , unspecified trimester O99.719 ; Grand multiparity Z64.1 ; Disease of digestive system affecting in third trimester O99.613 ; Type A blood, Rh negative Z67.11 ; Abnormal glucose tolerance test R73.02 ; Other specified related conditions, unspecified trimester O26.899 and Obesity complicating , third trimester O99.213 [facility] [address] [id number] [id number] Aug, Encounter for supervision of other normal , third trimester Z34.83 [facility] [id number] [id number] Aug, Abnormal glucose tolerance test R73.02 [facility] [address] [id number] [id number] Aug, Encounter for supervision of other normal , third trimester Z34.83 ; Obesity complicating , third trimester O99.213 ; Nausea and vomiting during O21.9 ; Abnormal glucose tolerance test R73.02 and Type A blood, Rh negative Z67.11 [facility] [id number] [id number] Aug, Encounter for supervision of other normal , third trimester Z34.83 ; Grand multiparity Z64.1 ; Nausea and vomiting during O21.9 ; Chloasma L81.1 ; Obesity complicating , third trimester O99.213 ; Diseases of the skin and subcutaneous tissue complicating , unspecified trimester O99.719 ; Disease of digestive system affecting in third trimester O99.613 ; Constipation, unspecified K59.00 and Breech presentation, single or unspecified fetus O32.1XX0 [facility] [address] [id number] [id number] Jul, Contact sensitivity to metal, current reaction L23.0 ; Chloasma L81.1 ; Diseases of the skin and subcutaneous tissue complicating , unspecified trimester O99.719 and Grand multiparity with current in second trimester O09.42 [address] [id number] [id number] Jul, [facility] [id number] [place] [id number] Jul, [facility] [address] [id number] [id number] Jul, Supervision of with grand multiparity in second trimester O09.42 ; Obesity complicating , second trimester O99.212 ; Nausea and vomiting during O21.9 and Grand multiparity with current in second trimester O09.42 [address] [place] [id number] June, Supervision of with grand multiparity in second trimester O09.42 ; Obesity complicating , second trimester O99.212 ; Nausea and vomiting during O21.9 and History of general anesthesia Z98.890 [id number] [place] [id number] May, Supervision of with grand multiparity in first trimester O09.41 ; Obesity complicating , first trimester O99.211 ; Constipation, unspecified K59.00 and Diseases of the digestive system complicating , first trimester O99.611 [address] [place] [id number] Apr, Supervision of with grand multiparity in first trimester O09.41 [facility] [address] [id number] [id number] Apr, [address] [id number] [place] [id number] Apr, Supervision of with grand multiparity in first trimester O09.41 ; BMI 40.0-44.9, adult Z68.41 and Obesity complicating , first trimester O99.211 [facility] [address] [id number] [id number] Mar, [id number] [place] [id number] Mar, Encounter for test, result unknown Z32.00 [id number] [place] [id number] Dec, Encounter for Nexplanon removal Z30.46 [address] [id number] Nov, [facility] [address] [id number] [id number] Sep, Well woman exam with routine gynecological exam Z01.419 and Hidradenitis suppurativa L73.2 [facility] [address] [id number] [id number] Aug, Morbid obesity due to excess calories E66.01 [facility] [id number] [id number] 14 Mar, 2016 Wellness examination Z00.00 ; control counseling Z30.09 ; Uses contraceptive implant for control Z78.9 and Morbid obesity due to excess calories E66.01 [facility] [address] [id number] [id number] Feb, Right facial pain R51 IMMUNIZATIONS No Known Immunizations SOCIAL HISTORY Never Assessed REASON FOR VISIT [facility] Activity Details Follow Up Sunday with Dr. Bonner as scheduled, Sunday with Dr. Bonner as scheduled Reason: VITAL SIGNS Height 70.5 in 2017-11-01 Weight 287.0 lbs 2017-11-01 Heart Rate 84 bpm 2017-11-01 Respiratory Rate 18 2017-11-01 BMI 40.598 kg/m2 2017-11-01 Blood pressure systolic 124 mmHg 2017-11-01 Blood pressure diastolic 70 mmHg 2017-11-01 MEDICATIONS Medication Instructions Dosage Frequency Start Date End Date Duration Status Vitamin 27-0.8 MG Orally Once a day 1 tablet 24h Active Ondansetron 4 MG Orally every 6 hrs 1 tablet on the tongue and allow to dissolve as needed 6h Sep, 30 days Active Ranitidine HCl 150 MG Orally twice a day 1 tablet 12h Sep, 30 day(s) Active Promethazine HCl 25 MG Orally every 6 hrs 1 tablet as needed 6h Jul, Nov, 30 day(s) Not-Taking Ondansetron 4 MG Orally every six hours as needed for nausea 1 tablet dissolved under tongue Apr, 30 days Not-Taking Diclegis 10-10 MG Orally Once a day 2 tablets at bedtime on an empty stomach 24h June, 30 day(s) Not-Taking RESULTS No Results PROCEDURES No Known procedures INSTRUCTIONS MEDICATIONS ADMINISTERED No Known Medications MEDICAL (GENERAL) HISTORY Type Description Date Medical History Hydranitis Suppuritiva Medical History Vaginal Delivery Medical History Obesity Surgical History cholecystectomy 05/08/17 Hospitalization History childbirth only
--- OUTSIDE RECORDS SUMMARY | 2017-11-15 06:05 | XMS REPORT ---
Author Author PAULO CANTU Organization [facility] Address [address] [place] [address] Care Team Providers Care Glue Drier Operator Name Role Phone GUSTAVOBENJIEABELANGYT Unavailable PROBLEMS Type Condition ICD9-CM Code [id number] Code Onset Dates Condition Status SNOMED Code Problem Grand multiparity Z64.1 Active 36714184 Problem Chloasma L81.1 Active 63672343 Problem Diseases of the skin and subcutaneous tissue complicating , unspecified trimester O99.719 Active 388018385 Problem Uterine size date discrepancy, third trimester O26.843 Active Problem Other specified related conditions, third trimester O26.893 Active 466907827 Problem Type A blood, Rh negative Z67.11 Active 879291915 Problem Abnormal glucose tolerance test R73.02 Active 012715836 Problem Other specified related conditions, unspecified trimester O26.899 Active 456506691 Problem Heartburn R12 Active 57711304 Problem History of general anesthesia Z98.890 Active 7639980213019 Problem Nausea and vomiting during O21.9 Active 16452782 Problem Encounter for supervision of other normal , third trimester Z34.83 Active 56629577 Problem Morbid obesity due to excess calories E66.01 Active 372485634 Problem Obesity complicating , third trimester O99.213 Active 652661440766 Problem Constipation, unspecified K59.00 Active 87333551 Problem Disease of digestive system affecting in third trimester O99.613 Active 709368619 ALLERGIES No Known Allergies ENCOUNTERS Encounter Location Date Diagnosis [facility] [address] [id number] [place], [place] [id number] Nov, [facility] [address] [id number] [place] [id number] Oct, Encounter for supervision of other normal [...] negative Z67.11 and BMI 40.0-44.9, adult Z68.[address] [place] [id number] Oct, Encounter for supervision of other normal , third trimester Z34.83 ; Grand multiparity Z64.1 ; Obesity complicating , third trimester O99.213 ; Disease of digestive system affecting in third trimester O99.613 ; Heartburn R12 ; Other specified related conditions , third trimester O26.893 and Type A blood, Rh negative Z67.[address] [place] [id number] Oct, Encounter for supervision of other normal , third trimester Z34.83 ; Grand multiparity Z64.1 ; Obesity complicating , third trimester O99.213 ; Other specified related conditions, third trimester O26.893 ; Heartburn R12 ; Type A blood, Rh negative Z67.11 ; Encounter for screening for Streptococcus B Z36.85 and Uterine size date discrepancy, third trimester O26.[address] [id number] [id number] Sep, Encounter for supervision of other normal , third trimester Z34.83 ; Nausea and vomiting during O21.9 ; Other specified related conditions, third trimester O26.893 ; Heartburn R12 ; Lower abdominal pain, unspecified R10.30 ; Other specified related conditions, unspecified trimester O26.899 ; Encounter for immunization Z23 and Grand multiparity Z64.[address] [place] [phone] Sep, Encounter for supervision of other normal [...] and Obesity complicating , third trimester O99.213 [facility] [address] [id number] [id number] Aug, Encounter for supervision of other normal , third trimester Z34.83 [facility] [place] [id number][place] [phone] Aug, Abnormal glucose tolerance test R73.02 [facility]ENTERFedora PharmaceuticalsS[address]HEZ[address] [id number][place] [phone] Aug, Encounter for supervision of other normal , third trimester Z34.83 ; Obesity complicating , third trimester O99.213 ; Nausea and vomiting during O21.9 ; Abnormal glucose tolerance test R73.02 and Type A blood, Rh negative Z67.11 [facility] [id number] [phone] Aug, Encounter for supervision of other normal [...] Breech presentation, single or unspecified fetus O32.1XX0 [facility] CENTERFedora PharmaceuticalsSANCHEZCHAR[place] [address] [address] [facility] [facility] [address] [id number][place] [id number] Jul, Contact sensitivity to metal, current reaction L23.0 ; Chloasma L81.1 ; Diseases of the skin and subcutaneous tissue complicating , unspecified trimester O99.719 and Grand multiparity with current in second trimester O09.42 [address] [id number] [phone] Jul, [facility]ENT[facility] [id number] [place] [id number] Jul, [facility] CENTERMojgan [address] [id number] [id number] Jul, Supervision of with grand multiparity in second trimester O09.42 ; Obesity complicating , second trimester O99.212 ; Nausea and vomiting during O21.9 and Grand multiparity with current in second trimester O09.[address] [place] [id number] June, Supervision of with grand multiparity in second trimester O09.42 ; Obesity complicating , second trimester O99.212 ; Nausea and vomiting during O21.9 and History of general anesthesia Z98.[id number] [place] [id number] May, Supervision of with grand multiparity in first trimester O09.41 ; Obesity complicating , first trimester O99.211 ; Constipation, unspecified K59.00 and Diseases of the digestive system complicating , first trimester O99.[address] [place] [id number] Apr, Supervision of with grand multiparity in first trimester O09.41 [facility]VILLEIndeed [address] [id number], [place] [id number] Apr, [id number] [place] [id number] Apr, Supervision of with grand multiparity in first trimester O09.41 ; BMI 40.0-44.9, adult Z68.41 and Obesity complicating , first trimester O99.211 [facility]VILLECambridge Positioning SystemsTER [address] [id number], [place] [id number] Mar, [id number] [place] [id number] Mar, Encounter for test, result unknown Z32.00 [id number] [place] [phone] Dec, Encounter for Nexplanon removal Z30.46 [address]00565100[place], [place] [id number] Nov, [facility] [address] [id number] [id number] Sep, Well woman exam with routine gynecological exam Z01.419 and Hidradenitis suppurativa L73.2 [facility] [address] [facility] [id number][place] [id number] Aug, Morbid obesity due to excess calories E66.01 [address]00565100[place], [place] [id number] 14 Mar, 2016 Wellness examination Z00.00 ; control counseling Z30.09 ; Uses contraceptive implant for control Z78.9 and Morbid obesity due to excess calories E66.01 [facility] [address] [id number], [place] [phone] Feb, Right facial pain R51 IMMUNIZATIONS No Known Immunizations SOCIAL HISTORY Never Assessed REASON FOR VISIT OB f/u PLAN OF CARE Activity Details Follow Up 1 Week Reason:OB Follow UP Pending Test UA OB DIP (IN HOUSE) VITAL SIGNS Weight 283.8 lbs 2017-10-25 Blood pressure systolic 110 mmHg 2017-10-25 Blood pressure diastolic 68 mmHg 2017-10-25 MEDICATIONS Medication Instructions Dosage Frequency Start Date End Date Duration Status Diclegis 10-10 MG Orally Once a day 2 tablets at bedtime on an empty stomach 24h June, 30 day(s) Unknown Vitamin 27-0.8 MG Orally Once a day 1 tablet 24h Unknown Ranitidine HCl 150 MG Orally twice a day 1 tablet 12h Sep, 30 day(s) Unknown Promethazine HCl 25 MG Orally every 6 hrs 1 tablet as needed 6h Jul, Nov, 30 day(s) Unknown Polyethylene Glycol 3350 - Orally Once a day as directed 24h May, Oct, 28 days Unknown Ondansetron 4 MG Orally every six hours as needed for nausea 1 tablet dissolved under tongue Apr, 30 days Unknown Ondansetron 4 MG Orally every 6 hrs 1 tablet on the tongue and allow to dissolve as needed 6h Sep, 30 days Unknown RESULTS Name Result Date Reference Range Ultrasound : OB, Limited 2017-10-25 PROCEDURES Procedure Date Ordered Result Body Site URINE-NO MICRO Oct 25, 2017 OB US, LIMITED, FETUS(S) Oct 25, 2017 INSTRUCTIONS MEDICATIONS ADMINISTERED No Known Medications MEDICAL (GENERAL) HISTORY Type Description Date Medical History Hydranitis Suppuritiva Medical History Vaginal Delivery Medical History Obesity Surgical History cholecystectomy 05/08/17 Hospitalization History childbirth only
--- OUTSIDE RECORDS SUMMARY | 2017-11-15 06:05 | XMS REPORT ---
Author Author PAULO CANTU Organization [facility] Address [address] [place] [address] Care Team Providers Care Cuff Turner Name Role Phone GUSTAVOBENJEIABELANGYT Unavailable PROBLEMS Type Condition ICD9-CM Code [id number] Code Onset Dates Condition Status SNOMED Code Problem Grand multiparity Z64.1 Active 89538227 Problem Chloasma L81.1 Active 24081354 Problem Diseases of the skin and subcutaneous tissue complicating , unspecified trimester O99.719 Active 865718602 Problem Uterine size date discrepancy, third trimester O26.843 Active Problem Other specified related conditions, third trimester O26.893 Active 419476249 Problem Type A blood, Rh negative Z67.11 Active 583438638 Problem Abnormal glucose tolerance test R73.02 Active 963531294 Problem Other specified related conditions, unspecified trimester O26.899 Active 683763264 Problem Heartburn R12 Active 10104627 Problem History of general anesthesia Z98.890 Active 4141912794376 Problem Nausea and vomiting during O21.9 Active 65294734 Problem Encounter for supervision of other normal , third trimester Z34.83 Active 47461269 Problem Morbid obesity due to excess calories E66.01 Active 961667599 Problem Obesity complicating , third trimester O99.213 Active 945804391965 Problem Constipation, unspecified K59.00 Active 90949150 Problem Disease of digestive system affecting in third trimester O99.613 Active 866415368 ALLERGIES No Known Allergies ENCOUNTERS Encounter Location Date Diagnosis [facility] [address] [id number] [place] [id number] Nov, [facility] [address] [id number] [place] [id number] Oct, Encounter for supervision of other normal [...] negative Z67.11 and BMI 40.0-44.9, adult Z68.[address] [place] [id number] Oct, Encounter for supervision of other normal , third trimester Z34.83 ; Grand multiparity Z64.1 ; Obesity complicating , third trimester O99.213 ; Disease of digestive system affecting in third trimester O99.613 ; Heartburn R12 ; Other specified related conditions , third trimester O26.893 and Type A blood, Rh negative Z67.[address] [place] [id number] Oct, Encounter for supervision of other normal , third trimester Z34.83 ; Grand multiparity Z64.1 ; Obesity complicating , third trimester O99.213 ; Other specified related conditions, third trimester O26.893 ; Heartburn R12 ; Type A blood, Rh negative Z67.11 ; Encounter for screening for Streptococcus B Z36.85 and Uterine size date discrepancy, third trimester O26.[address] [id number], [place] [id number] Sep, Encounter for supervision of other normal , third trimester Z34.83 ; Nausea and vomiting during O21.9 ; Other specified related conditions, third trimester O26.893 ; Heartburn R12 ; Lower abdominal pain, unspecified R10.30 ; Other specified related conditions, unspecified trimester O26.899 ; Encounter for immunization Z23 and Grand multiparity Z64.[address] [place] [id number] Sep, Encounter for supervision of other normal [...] and Obesity complicating , third trimester O99.213 [facility] [address] [id number], [place] [id number] Aug, Encounter for supervision of other normal , third trimester Z34.83 [facility] [place] [id number], [place] [id number] Aug, Abnormal glucose tolerance test R73.02 [facility]ITALPlaceVineSANCHEZ[address] [id number], [place] [id number] Aug, Encounter for supervision of other normal , third trimester Z34.83 ; Obesity complicating , third trimester O99.213 ; Nausea and vomiting during O21.9 ; Abnormal glucose tolerance test R73.02 and Type A blood, Rh negative Z67.11 [facility]ITALSESHAUN VILLE [id number] [phone] Aug, Encounter for supervision of other normal [...] Breech presentation, single or unspecified fetus O32.1XX0 [facility]ITALPlaceVineSANCHEZELIZABETH [address] [facility] [address] [id number], [place] [id number] Jul, Contact sensitivity to metal, current reaction L23.0 ; Chloasma L81.1 ; Diseases of the skin and subcutaneous tissue complicating , unspecified trimester O99.719 and Grand multiparity with current in second trimester O09.42 [address] [id number], [place] [id number] Jul, [facility]ITALEvent[facility]ig [id number] [place] [id number] Jul, [facility] HOSPITALMojgan [address] [id number] [phone] Jul, Supervision of with grand multiparity in second trimester O09.42 ; Obesity complicating , second trimester O99.212 ; Nausea and vomiting during O21.9 and Grand multiparity with current in second trimester O09.[address] [place] [id number] June, Supervision of with grand multiparity in second trimester O09.42 ; Obesity complicating , second trimester O99.212 ; Nausea and vomiting during O21.9 and History of general anesthesia Z98.890 [address] [place] [id number] May, Supervision of with grand multiparity in first trimester O09.41 ; Obesity complicating , first trimester O99.211 ; Constipation, unspecified K59.00 and Diseases of the digestive system complicating , first trimester O99.[address] [place] [id number] Apr, Supervision of with grand multiparity in first trimester O09.41 [facility]ITALDesi[facility] [address] [id number][place] [id number] Apr, [id number] [place] [phone] Apr, Supervision of with grand multiparity in first trimester O09.41 ; BMI 40.0-44.9, adult Z68.41 and Obesity complicating , first trimester O99.211 [facility]ITALNEUWAY PharmaTER [address] [id number], [place] [id number] Mar, [id number] [place] [id number] Mar, Encounter for test, result unknown Z32.00 [id number] [place] [id number] Dec, Encounter for Nexplanon removal Z30.46 [address]00565100[place], [place] [id number] Nov, [facility] [address] [id number], [place] [id number] Sep, Well woman exam with routine gynecological exam Z01.419 and Hidradenitis suppurativa L73.2 [facility] [address] [facility] [id number], [place] [id number] Aug, Morbid obesity due to excess calories E66.01 [facility] [id number], [place] [id number] 14 Mar, 2016 Wellness examination Z00.00 ; control counseling Z30.09 ; Uses contraceptive implant for control Z78.9 and Morbid obesity due to excess calories E66.01 [facility] [address] [id number], [place] [phone] Feb, Right facial pain R51 IMMUNIZATIONS No Known Immunizations SOCIAL HISTORY Never Assessed REASON FOR VISIT OB f/u Stefan JOHNSON PLAN OF CARE Activity Details Follow Up 1 Week Reason: VITAL SIGNS Height 70.5 in 2017-10-18 Weight 280.4 lbs 2017-10-18 Temperature 96.5 degrees Fahrenheit 2017-10-18 Heart Rate 88 bpm 2017-10-18 Respiratory Rate 18 2017-10-18 BMI 39.665 kg/m2 2017-10-18 Blood pressure systolic 122 mmHg 2017-10-18 Blood pressure diastolic 68 mmHg 2017-10-18 MEDICATIONS Medication Instructions Dosage Frequency Start Date End Date Duration Status Vitamin 27-0.8 MG Orally Once a day 1 tablet 24h Active Ondansetron 4 MG Orally every 6 hrs 1 tablet on the tongue and allow to dissolve as needed 6h Sep, 30 days Active Polyethylene Glycol 3350 - Orally Once a day as directed 24h May, Oct, 28 days Not-Taking Ranitidine HCl 150 MG Orally twice a day 1 tablet 12h Sep, 30 day(s) Active Promethazine HCl 25 MG Orally every 6 hrs 1 tablet as needed 6h Jul, Nov, 30 day(s) Not-Taking Diclegis 10-10 MG Orally Once a day 2 tablets at bedtime on an empty stomach 24h June, 30 day(s) Not-Taking Ondansetron 4 MG Orally every six hours as needed for nausea 1 tablet dissolved under tongue Apr, 30 days Not-Taking RESULTS No Results PROCEDURES Procedure Date Ordered Result Body Site URINE-NO MICRO Oct 18, 2017 STREP CULTURE Oct 18, 2017 OB US, LIMITED, FETUS(S) Oct 18, 2017 INSTRUCTIONS MEDICATIONS ADMINISTERED No Known Medications MEDICAL (GENERAL) HISTORY Type Description Date Medical History Hydranitis Suppuritiva Medical History Vaginal Delivery Medical History Obesity Surgical History cholecystectomy 05/08/17 Hospitalization History childbirth only
--- OUTSIDE RECORDS SUMMARY | 2017-11-15 06:06 | XMS REPORT ---
Author Author PAULO CANTU Organization [facility] Address [address] [place] [address] Care Team Providers Care Second Miller Name Role Phone GUSTAVOBENJIETAZPAULO Shi Unavailable PROBLEMS Type Condition ICD9-CM Code WKC52-IT Code Onset Dates Condition Status SNOMED Code Problem Encounter for supervision of other normal , third trimester Z34.83 Active 82450809 Problem Grand multiparity with current in second trimester O09.42 Active 71337439 Problem Chloasma L81.1 Active 05606558 Problem Other specified related conditions, third trimester O26.893 Active 145811622 Problem Other specified related conditions, unspecified trimester O26.899 Active 810658491 Problem Abnormal glucose tolerance test R73.02 Active 316106856 Problem Diseases of the skin and subcutaneous tissue complicating , unspecified trimester O99.719 Active 723730878 Problem Heartburn R12 Active 79237653 Problem Type A blood, Rh negative Z67.11 Active 979803695 Problem History of general anesthesia Z98.890 Active 8717121989812 Problem Morbid obesity due to excess calories E66.01 Active 472078254 Problem Obesity complicating , second trimester O99.212 Active 227328402022 Problem Nausea and vomiting during O21.9 Active 11087182 Problem Grand multiparity Z64.1 Active 97458811 Problem Constipation, unspecified K59.00 Active 21255605 Problem Disease of digestive system affecting in third trimester O99.613 Active 210014578 Problem Diseases of the digestive system complicating , first trimester O99.611 Active 94533793 Problem Obesity complicating , third trimester O99.213 Active [id number] ALLERGIES No Information ENCOUNTERS Encounter Location Date Diagnosis [facility] [address] [facility] [id number] [place] [id number] Oct, [facility] [id number] [place] [address] [id number] Sep, Encounter for supervision of other normal , third trimester Z34.83 ; Nausea and vomiting during O21.9 ; Other specified related conditions, third trimester O26.893 ; Heartburn R12 ; Lower abdominal pain, unspecified R10.30 ; Other specified related conditions, unspecified trimester O26.899 and Encounter for immunization Z23 [facility] [id number] [place] [address] [id number] Sep, Encounter for supervision of other normal , third trimester Z34.83 [facility] [id number] [place] [address] [id number] Aug, Encounter for supervision of other normal , third trimester Z34.83 [facility] [id number] [place] [address] [id number] Aug, Abnormal glucose tolerance test R73.02 [facility] [id number] [place] [id number] Aug, Encounter for supervision of other normal , third trimester Z34.83 ; Obesity complicating , third trimester O99.213 ; Nausea and vomiting during O21.9 ; Abnormal glucose tolerance test R73.02 and Type A blood, Rh negative Z67.11 [facility] [id number] [place] [address] [id number] Aug, Encounter for supervision of other normal [...] Breech presentation, single or unspecified fetus O32.1XX0 [facility]awanda Self StorageTER [address] [id number] [place] [id number] Jul, Contact sensitivity to metal, current reaction L23.0 ; Chloasma L81.1 ; Diseases of the skin and subcutaneous tissue complicating , unspecified trimester O99.719 and Grand multiparity with current in second trimester O09.42 [facility] CHA[address]NDA[address]005[address]100[place] [phone] Jul, [facility] [place] [address] [place] [address] [id number] Jul, [facility] [address]00565100[place] [id number] Jul, Supervision of with grand multiparity in second trimester O09.42 ; Obesity complicating , second trimester O99.212 ; Nausea and vomiting during O21.9 and Grand multiparity with current in second trimester O09.42 [facility] [id number] [place] [address] [id number] June, Supervision of with grand multiparity in second trimester O09.42 ; Obesity complicating , second trimester O99.212 ; Nausea and vomiting during O21.9 and History of general anesthesia Z98.890 [facility]ITAL[facility] [address] [place] [address] [id number] May, Supervision of with grand multiparity in first trimester O09.41 ; Obesity complicating , first trimester O99.211 ; Constipation, unspecified K59.00 and Diseases of the digestive system complicating , first trimester O99.611 [facility]ITAL[facility] [address]00565100[place] [id number] Apr, Supervision of with grand multiparity in first trimester O09.41 [facility] Self [address]TER [address] [id number], [place] [id number] Apr, [place] [address] [id number] [phone] Apr, Supervision of with grand multiparity in first trimester O09.41 ; BMI 40.0-44.9, adult Z68.41 and Obesity complicating , first trimester O99.211 [facility] [address] [id number], [place] [phone] Mar, [facility] FERNANDA[address] [place] [address] [id number] Mar, Encounter for test, result unknown Z32.00 [facility] [id number][place] [id number] 02 Dec, 2016 Encounter for Nexplanon removal Z30.46 [facility] [id number], [place] [id number] Nov, [address]100[place] [id number] Sep, Well woman exam with routine gynecological exam Z01.419 and Hidradenitis suppurativa L73.2 [address]100[place] [id number] Aug, Morbid obesity due to excess calories E66.01 [address]100[place] [id number] 14 Mar, 2016 Wellness examination Z00.00 ; control counseling Z30.09 ; Uses contraceptive implant for control Z78.9 and Morbid obesity due to excess calories E66.01 [address]005[address]100[place], [place] [id number] Feb, Right facial pain R51 IMMUNIZATIONS No Known Immunizations SOCIAL HISTORY Never Assessed REASON FOR VISIT lab work Stefan JOHNSON PLAN OF CARE VITAL SIGNS MEDICATIONS Unknown Medications RESULTS No Results PROCEDURES Procedure Date Ordered Result Body Site LAB NOT BILLED BY [facility] August 28, 2017 HELEN, ROUTINE* August 28, 2017 INSTRUCTIONS MEDICATIONS ADMINISTERED No Known Medications MEDICAL (GENERAL) HISTORY Type Description Date Medical History Hydranitis Suppuritiva Medical History Vaginal Delivery Medical History Obesity Surgical History cholecystectomy 05/08/17 Hospitalization History childbirth only
--- OUTSIDE RECORDS SUMMARY | 2017-11-15 06:06 | XMS REPORT ---
Author Author PAULO CANTU Organization [facility] Address [address] [place] [address] Care Team Providers Care Supervisor [employer] Name Role Phone GUSTAVOBENJIETAZPAULO Shi Unavailable PROBLEMS Type Condition ICD9-CM Code RWV85-IP Code Onset Dates Condition Status SNOMED Code Problem Encounter for supervision of other normal , third trimester Z34.83 Active 26861291 Problem Grand multiparity with current in second trimester O09.42 Active 70732073 Problem Chloasma L81.1 Active 05218555 Problem Other specified related conditions, third trimester O26.893 Active 832376284 Problem Other specified related conditions, unspecified trimester O26.899 Active 391609558 Problem Abnormal glucose tolerance test R73.02 Active 471456199 Problem Diseases of the skin and subcutaneous tissue complicating , unspecified trimester O99.719 Active 611886914 Problem Heartburn R12 Active 24616644 Problem Type A blood, Rh negative Z67.11 Active 852157263 Problem History of general anesthesia Z98.890 Active 9420085234247 Problem Morbid obesity due to excess calories E66.01 Active 557901697 Problem Obesity complicating , second trimester O99.212 Active 561790250870 Problem Nausea and vomiting during O21.9 Active 04591698 Problem Grand multiparity Z64.1 Active 27984349 Problem Constipation, unspecified K59.00 Active 41276249 Problem Disease of digestive system affecting in third trimester O99.613 Active 555391241 Problem Diseases of the digestive system complicating , first trimester O99.611 Active 18540918 Problem Obesity complicating , third trimester O99.213 Active 206577384535 ALLERGIES No Information ENCOUNTERS Encounter Location Date Diagnosis [facility] [address] [facility] [id number] [place] [id number] Oct, [facility] [address] [id number] [place] [address] [id number] Sep, Encounter for supervision of other normal , third trimester Z34.83 ; Nausea and vomiting during O21.9 ; Other specified related conditions, third trimester O26.893 ; Heartburn R12 ; Lower abdominal pain, unspecified R10.30 ; Other specified related conditions, unspecified trimester O26.899 and Encounter for immunization Z23 [facility] [id number] [place] [address] [id number] Sep, Encounter for supervision of other normal , third trimester Z34.83 [facility] [id number] [place] [address] [id number] Aug, Encounter for supervision of other normal , third trimester Z34.83 [facility] [id number] [place] [address] [id number] Aug, Abnormal glucose tolerance test R73.[id number] [place] [address] [id number] Aug, Encounter for supervision of other normal , third trimester Z34.83 ; Obesity complicating , third trimester O99.213 ; Nausea and vomiting during O21.9 ; Abnormal glucose tolerance test R73.02 and Type A blood, Rh negative Z67.11 [facility] [address] [id number] [place] [address] [id number] Aug, Encounter for supervision of other normal [...] Breech presentation, single or unspecified fetus O32.1XX0 [facility]ENTERNextPoint NetworksTER [address] [id number] [place] [phone] Jul, Contact sensitivity to metal, current reaction L23.0 ; Chloasma L81.1 ; Diseases of the skin and subcutaneous tissue complicating , unspecified trimester O99.719 and Grand multiparity with current in second trimester O09.42 [facility] [address]00565100[place] [id number] Jul, [facility] [place] [address] [place] [address] [id number] Jul, [facility] [address]00565100[place] [id number] Jul, Supervision of with grand multiparity in second trimester O09.42 ; Obesity complicating , second trimester O99.212 ; Nausea and vomiting during O21.9 and Grand multiparity with current in second trimester O09.42 [facility]ENTERM[facility] [place]HE[place] [id number] [place] [address] [id number] June, Supervision of with grand multiparity in second trimester O09.42 ; Obesity complicating , second trimester O99.212 ; Nausea and vomiting during O21.9 and History of general anesthesia Z98.890 [facility]ENTERMoj[facility] [address] [place] [address] [id number] May, Supervision of with grand multiparity in first trimester O09.41 ; Obesity complicating , first trimester O99.211 ; Constipation, unspecified K59.00 and Diseases of the digestive system complicating , first trimester O99.611 [facility]ENTERM[facility] [address]00565100[place] [id number] Apr, Supervision of with grand multiparity in first trimester O09.41 [facility]Next[facility] NetworksTER [address] [id number], [place] [id number] Apr, [place] [id number] [id number] Apr, Supervision of with grand multiparity in first trimester O09.41 ; BMI 40.0-44.9, adult Z68.41 and Obesity complicating , first trimester O99.211 [facility]ENTERNext[facility] NetworksTER [address] [id number], [place] [id number] Mar, [facility] FERNANDA[address] [place] [address] [phone] Mar, Encounter for test, result unknown Z32.00 [facility] [id number] [place] [id number] 02 Dec, 2016 Encounter for Nexplanon removal Z30.46 [address]00565100[place] [id number] 18 Nov, 2016 [address]00565100[place] [id number] Sep, Well woman exam with routine gynecological exam Z01.419 and Hidradenitis suppurativa L73.2 [address]00565100[place] [id number] Aug, Morbid obesity due to excess calories E66.01 [address]005[address]100[place] [id number] 14 Mar, 2016 Wellness examination Z00.00 ; control counseling Z30.09 ; Uses contraceptive implant for control Z78.9 and Morbid obesity due to excess calories E66.01 [address]00565100[place] [id number] Feb, Right facial pain R51 IMMUNIZATIONS Vaccine Route Administration Date Status RHOGAM FULL DOSE Unknown August 30, 2017 Administered SOCIAL HISTORY Never Assessed REASON FOR VISIT Immunization(s)---rhogam---KAR segovia PLAN OF CARE VITAL SIGNS MEDICATIONS Unknown Medications RESULTS No Results PROCEDURES Procedure Date Ordered Result Body Site RH IG, FULL-DOSE, IM August 30, 2017 THER/PROPH/DIAG INJ, SC/IM August 30, 2017 INSTRUCTIONS MEDICATIONS ADMINISTERED No Known Medications MEDICAL (GENERAL) HISTORY Type Description Date Medical History Hydranitis Suppuritiva Medical History Vaginal Delivery Medical History Obesity Surgical History cholecystectomy 05/08/17 Hospitalization History childbirth only
--- OUTSIDE RECORDS SUMMARY | 2017-11-15 06:06 | XMS REPORT ---
Author Author PAULO CANTU Organization [facility] Address [address] [place] [address] Care Team Providers Care Stator Winder Name Role Phone GUSTAVOBENJIEABELANGYT Unavailable PROBLEMS Type Condition ICD9-CM Code FPF23-OH Code Onset Dates Condition Status SNOMED Code Problem Grand multiparity Z64.1 Active 09283174 Problem Chloasma L81.1 Active 14156332 Problem Diseases of the skin and subcutaneous tissue complicating , unspecified trimester O99.719 Active 641238110 Problem Uterine size date discrepancy, third trimester O26.843 Active Problem Other specified related conditions, third trimester O26.893 Active 175588931 Problem Type A blood, Rh negative Z67.11 Active 172406640 Problem Abnormal glucose tolerance test R73.02 Active 742656910 Problem Other specified related conditions, unspecified trimester O26.899 Active 146063333 Problem Heartburn R12 Active 66981987 Problem History of general anesthesia Z98.890 Active 3270588223064 Problem Nausea and vomiting during O21.9 Active 05472702 Problem Encounter for supervision of other normal , third trimester Z34.83 Active 24317677 Problem Morbid obesity due to excess calories E66.01 Active 494540538 Problem Obesity complicating , third trimester O99.213 Active 993272364863 Problem Constipation, unspecified K59.00 Active 83114693 Problem Disease of digestive system affecting in third trimester O99.613 Active 542757064 ALLERGIES No Known Allergies ENCOUNTERS Encounter Location Date Diagnosis [facility] [address] [id number] [place] [id number] Nov, [facility] [address] [id number] [place] [id number] Oct, Encounter for supervision of other normal [...] negative Z67.11 and BMI 40.0-44.9, adult Z68.[address] [place] [address] [id number] Oct, Encounter for supervision of other normal , third trimester Z34.83 ; Grand multiparity Z64.1 ; Obesity complicating , third trimester O99.213 ; Disease of digestive system affecting in third trimester O99.613 ; Heartburn R12 ; Other specified related conditions , third trimester O26.893 and Type A blood, Rh negative Z67.[address] [place] [address] [id number] Oct, Encounter for supervision of other normal , third trimester Z34.83 ; Grand multiparity Z64.1 ; Obesity complicating , third trimester O99.213 ; Other specified related conditions, third trimester O26.893 ; Heartburn R12 ; Type A blood, Rh negative Z67.11 ; Encounter for screening for Streptococcus B Z36.85 and Uterine size date discrepancy, third trimester O26.[address] [id number] [id number] Sep, Encounter for supervision of other normal , third trimester Z34.83 ; Nausea and vomiting during O21.9 ; Other specified related conditions, third trimester O26.893 ; Heartburn R12 ; Lower abdominal pain, unspecified R10.30 ; Other specified related conditions, unspecified trimester O26.899 ; Encounter for immunization Z23 and Grand multiparity Z64.[address] [place] [address] [id number] Sep, Encounter for supervision of other normal [...] and Obesity complicating , third trimester O99.213 [facility] [address] [id number] [id number] Aug, Encounter for supervision of other normal , third trimester Z34.83 [facility] [id number], [place] [id number] Aug, Abnormal glucose tolerance test R73.02 [facility]ITALOcimum BiosolutionsSANCHEZ[address] [id number] [place] [id number] Aug, Encounter for supervision of other normal , third trimester Z34.83 ; Obesity complicating , third trimester O99.213 ; Nausea and vomiting during O21.9 ; Abnormal glucose tolerance test R73.02 and Type A blood, Rh negative Z67.11 [facility]ERSESYLVIA [facility] [id number], [place] [id number] Aug, Encounter for supervision of other normal [...] Breech presentation, single or unspecified fetus O32.1XX0 [facility]OSPITALOcimum BiosolutionsSANCHEZJOSEPH V[address] [id number] [place], [place] [id number] Jul, Contact sensitivity to metal, current reaction L23.0 ; Chloasma L81.1 ; Diseases of the skin and subcutaneous tissue complicating , unspecified trimester O99.719 and Grand multiparity with current in second trimester O09.42 [place] [address] 83317B00565100[place], [place] [id number] Jul, [facility] [address]JANDR[id number] [place] [address] [id number] Jul, [facility]ITALM[facility] [place] [id number], [place] [id number] Jul, Supervision of with grand multiparity in second trimester O09.42 ; Obesity complicating , second trimester O99.212 ; Nausea and vomiting during O21.9 and Grand multiparity with current in second trimester O09.[address] [place] [address] [id number] June, Supervision of with grand multiparity in second trimester O09.42 ; Obesity complicating , second trimester O99.212 ; Nausea and vomiting during O21.9 and History of general anesthesia Z98.890 [place] [place] [address] [id number] May, Supervision of with grand multiparity in first trimester O09.41 ; Obesity complicating , first trimester O99.211 ; Constipation, unspecified K59.00 and Diseases of the digestive system complicating , first trimester O99.[address] [place] [address] [id number] Apr, Supervision of with grand multiparity in first trimester O09.41 [facility] [address] [id number] [place]ION[place] [id number] Apr, [place] [id number] [place] [address] [id number] Apr, Supervision of with grand multiparity in first trimester O09.41 ; BMI 40.0-44.9, adult Z68.41 and Obesity complicating , first trimester O99.211 [facility]ERY[facility] [id number] [place] [id number] Mar, [place] [address] [place] [address] [id number] Mar, Encounter for test, result unknown Z32.00 [place] [id number] [place] [address] [id number] Dec, Encounter for Nexplanon removal Z30.46 [address]00565100[place], [place] [id number] Nov, [place] [address] [id number], [place] [phone] Sep, Well woman exam with routine gynecological exam Z01.419 and Hidradenitis suppurativa L73.2 [facility] [address] [id number], [place] [phone] Aug, Morbid obesity due to excess calories E66.01 [address]00565100[place], [place] [id number] 14 Mar, 2016 Wellness examination Z00.00 ; control counseling Z30.09 ; Uses contraceptive implant for control Z78.9 and Morbid obesity due to excess calories E66.01 [place] 83317B00565100[place], [place] [id number] Feb, Right facial pain R51 IMMUNIZATIONS No Known Immunizations SOCIAL HISTORY Never Assessed REASON FOR VISIT OB f/u--KAR Vega PLAN OF CARE Activity Details Follow Up 2 Weeks Reason: VITAL SIGNS Height 70.5 in 2017-09-06 Weight 272.0 lbs 2017-09-06 Heart Rate 96 bpm 2017-09-06 Respiratory Rate 18 2017-09-06 BMI 38.476 kg/m2 2017-09-06 Blood pressure systolic 108 mmHg 2017-09-06 Blood pressure diastolic 76 mmHg 2017-09-06 MEDICATIONS Medication Instructions Dosage Frequency Start Date End Date Duration Status Vitamin 27-0.8 MG Orally Once a day 1 tablet 24h Active Polyethylene Glycol 3350 - Orally Once a day as directed 24h May, Oct, 28 days Active Ondansetron 4 MG Orally every six hours as needed for nausea 1 tablet dissolved under tongue Apr, 30 days Active Diclegis 10-10 MG Orally Once a day 2 tablets at bedtime on an empty stomach 24h June, 30 day(s) Active Promethazine HCl 25 MG Orally every 6 hrs 1 tablet as needed 6h Jul, Nov, 30 day(s) Active RESULTS Name Result Date Reference Range UA OB DIP (IN HOUSE) 2017-09-06 Glucose neg Protein neg PROCEDURES Procedure Date Ordered Result Body Site URINE-NO MICRO Sep 06, 2017 INSTRUCTIONS MEDICATIONS ADMINISTERED No Known Medications MEDICAL (GENERAL) HISTORY Type Description Date Medical History Hydranitis Suppuritiva Medical History Vaginal Delivery Medical History Obesity Surgical History cholecystectomy 05/08/17 Hospitalization History childbirth only
--- OUTSIDE RECORDS SUMMARY | 2017-11-15 06:06 | XMS REPORT ---
Author Author PAULO CANTU Organization [facility] Address [address] [place] [address] Care Team Providers Care Retail Merchandising Coordinator Name Role Phone GUSTAVOBENJIETAZPAULO Shi Unavailable PROBLEMS Type Condition ICD9-CM Code [id number] Code Onset Dates Condition Status SNOMED Code Problem Encounter for supervision of other normal , third trimester Z34.83 Active 45952023 Problem Grand multiparity with current in second trimester O09.42 Active 12465559 Problem Chloasma L81.1 Active 66941994 Problem Other specified related conditions, third trimester O26.893 Active 211902325 Problem Other specified related conditions, unspecified trimester O26.899 Active 558987757 Problem Abnormal glucose tolerance test R73.02 Active 622334578 Problem Diseases of the skin and subcutaneous tissue complicating , unspecified trimester O99.719 Active 677640020 Problem Heartburn R12 Active 46346747 Problem Type A blood, Rh negative Z67.11 Active 716742606 Problem History of general anesthesia Z98.890 Active 9307638420803 Problem Morbid obesity due to excess calories E66.01 Active 927442573 Problem Obesity complicating , second trimester O99.212 Active 414752956834 Problem Nausea and vomiting during O21.9 Active 67198012 Problem Grand multiparity Z64.1 Active 88931909 Problem Constipation, unspecified K59.00 Active 28001661 Problem Disease of digestive system affecting in third trimester O99.613 Active 977229820 Problem Diseases of the digestive system complicating , first trimester O99.611 Active 11075546 Problem Obesity complicating , third trimester O99.213 Active 179236981709 ALLERGIES No Information ENCOUNTERS Encounter Location Date Diagnosis [facility] [address] [facility] [id number] [place] [id number] Oct, [facility] [id number] [place] [address] [id number] Sep, Encounter for supervision of other normal , third trimester Z34.83 ; Nausea and vomiting during O21.9 ; Other specified related conditions, third trimester O26.893 ; Heartburn R12 ; Lower abdominal pain, unspecified R10.30 ; Other specified related conditions, unspecified trimester O26.899 and Encounter for immunization Z23 [facility] [id number] [place] [id number] Sep, Encounter for supervision of other normal , third trimester Z34.83 [facility] [id number] [place] [address] [id number] Aug, Encounter for supervision of other normal , third trimester Z34.83 [facility] [id number] [place] [address] [id number] Aug, Abnormal glucose tolerance test R73.02 [facility] [id number] [place] [address] [id number] Aug, Encounter for supervision of other normal , third trimester Z34.83 ; Obesity complicating , third trimester O99.213 ; Nausea and vomiting during O21.9 ; Abnormal glucose tolerance test R73.02 and Type A blood, Rh negative Z67.11 [facility] [id number] [place] [address] [id number] Aug, Encounter for supervision of other normal [...] Breech presentation, single or unspecified fetus O32.1XX0 [facility] [address] [id number] [place] [id number] Jul, Contact sensitivity to metal, current reaction L23.0 ; Chloasma L81.1 ; Diseases of the skin and subcutaneous tissue complicating , unspecified trimester O99.719 and Grand multiparity with current in second trimester O09.42 [facility] [address]00565100[place] [id number] Jul, [facility] [place] [address] [place] [address] [id number] Jul, [facility] [address]00565100[place] [id number] Jul, Supervision of with grand multiparity in second trimester O09.42 ; Obesity complicating , second trimester O99.212 ; Nausea and vomiting during O21.9 and Grand multiparity with current in second trimester O09.42 [facility] [place] [id number] [place] [address] [id number] June, Supervision of with grand multiparity in second trimester O09.42 ; Obesity complicating , second trimester O99.212 ; Nausea and vomiting during O21.9 and History of general anesthesia Z98.890 [facility] [address] [place] [address] [id number] May, Supervision of with grand multiparity in first trimester O09.41 ; Obesity complicating , first trimester O99.211 ; Constipation, unspecified K59.00 and Diseases of the digestive system complicating , first trimester O99.611 [facility] [address]00565100[place] [id number] Apr, Supervision of with grand multiparity in first trimester O09.41 [facility] [address] [id number] [id number] Apr, [place] [id number] [id number] Apr, Supervision of with grand multiparity in first trimester O09.41 ; BMI 40.0-44.9, adult Z68.41 and Obesity complicating , first trimester O99.211 [facility] [address] [id number] [id number] Mar, [facility] FERNANDA[address] [place] [address] [id number] Mar, Encounter for test, result unknown Z32.00 [address]005[address]100[place] [id number] 02 Dec, 2016 Encounter for Nexplanon removal Z30.46 [address]005[address]100[place] [id number] Nov, [address]100[place] [id number] Sep, Well woman exam with routine gynecological exam Z01.419 and Hidradenitis suppurativa L73.2 [address]00565100[place] [id number] Aug, Morbid obesity due to excess calories E66.01 [address]00565100[place] [id number] 14 Mar, 2016 Wellness examination Z00.00 ; control counseling Z30.09 ; Uses contraceptive implant for control Z78.9 and Morbid obesity due to excess calories E66.01 [address]00565100[place] [id number] Feb, Right facial pain R51 IMMUNIZATIONS No Known Immunizations SOCIAL HISTORY Never Assessed REASON FOR VISIT Labs and Rho[employer] PLAN OF CARE VITAL SIGNS MEDICATIONS Unknown Medications RESULTS No Results PROCEDURES No Known procedures INSTRUCTIONS MEDICATIONS ADMINISTERED No Known Medications MEDICAL (GENERAL) HISTORY Type Description Date Medical History Hydranitis Suppuritiva Medical History Vaginal Delivery Medical History Obesity Surgical History cholecystectomy 05/08/17 Hospitalization History childbirth only
--- OUTSIDE RECORDS SUMMARY | 2017-11-15 06:06 | XMS REPORT ---
Author Author PAULO CANTU Organization [facility] Address [address] [place] [address] Care Team Providers Care Chemical Educator Name Role Phone GUSTAVOBENJIETAZPAULO Shi Unavailable PROBLEMS Type Condition ICD9-CM Code [id number] Code Onset Dates Condition Status SNOMED Code Problem Encounter for supervision of other normal , third trimester Z34.83 Active 09330529 Problem Grand multiparity with current in second trimester O09.42 Active 55316381 Problem Chloasma L81.1 Active 44700417 Problem Other specified related conditions, third trimester O26.893 Active 116316297 Problem Other specified related conditions, unspecified trimester O26.899 Active 411346180 Problem Abnormal glucose tolerance test R73.02 Active 211608896 Problem Diseases of the skin and subcutaneous tissue complicating , unspecified trimester O99.719 Active 339238321 Problem Heartburn R12 Active 31276911 Problem Type A blood, Rh negative Z67.11 Active 947096764 Problem History of general anesthesia Z98.890 Active 4580429321050 Problem Morbid obesity due to excess calories E66.01 Active 285023147 Problem Obesity complicating , second trimester O99.212 Active 683537840179 Problem Nausea and vomiting during O21.9 Active 05435639 Problem Grand multiparity Z64.1 Active 80732103 Problem Constipation, unspecified K59.00 Active 52839405 Problem Disease of digestive system affecting in third trimester O99.613 Active 842445614 Problem Diseases of the digestive system complicating , first trimester O99.611 Active 11080267 Problem Obesity complicating , third trimester O99.213 Active 327277746282 ALLERGIES No Known Allergies ENCOUNTERS Encounter Location Date Diagnosis [facility] [address] [facility] [id number] [place] [id number] Oct, [facility] [address] [place] [address] [id number] [id number] Sep, Encounter for supervision of other normal , third trimester Z34.83 ; Nausea and vomiting during O21.9 ; Other specified related conditions, third trimester O26.893 ; Heartburn R12 ; Lower abdominal pain, unspecified R10.30 ; Other specified related conditions, unspecified trimester O26.899 and Encounter for immunization Z23 [address] [place] [address] [id number] Sep, Encounter for supervision of other normal , third trimester Z34.83 [address] [place] [address] [id number] Aug, Encounter for supervision of other normal , third trimester Z34.83 [address] [place] [address] [id number] Aug, Abnormal glucose tolerance test R73.[address] [facility] [id number] [place] [id number] Aug, Encounter for supervision of other normal , third trimester Z34.83 ; Obesity complicating , third trimester O99.213 ; Nausea and vomiting during O21.9 ; Abnormal glucose tolerance test R73.02 and Type A blood, Rh negative Z67.11 [place] [id number] [place] [address] [id number] Aug, Encounter for supervision of other normal [...] Breech presentation, single or unspecified fetus O32.1XX0 [facility]Food[address] [id number] [place] [id number] Jul, Contact sensitivity to metal, current reaction L23.0 ; Chloasma L81.1 ; Diseases of the skin and subcutaneous tissue complicating , unspecified trimester O99.719 and Grand multiparity with current in second trimester O09.42 [facility] [id number], [place] [id number] Jul, [facility] [id number] [place] [address] [id number] Jul, [facility] [place] [address]00565100[place], [place] [id number] Jul, Supervision of with grand multiparity in second trimester O09.42 ; Obesity complicating , second trimester O99.212 ; Nausea and vomiting during O21.9 and Grand multiparity with current in second trimester O09.42 [facility] [place] [place] [id number] [place] [address] [id number] June, Supervision of with grand multiparity in second trimester O09.42 ; Obesity complicating , second trimester O99.212 ; Nausea and vomiting during O21.9 and History of general anesthesia Z98.890 [facility] [address] [place] [address] [id number] May, Supervision of with grand multiparity in first trimester O09.41 ; Obesity complicating , first trimester O99.211 ; Constipation, unspecified K59.00 and Diseases of the digestive system complicating , first trimester O99.611 [facility] [address]00565100[place], [place] [id number] Apr, Supervision of with grand multiparity in first trimester O09.41 [facility]Direct[address] [id number], [place] [id number] Apr, [place] [id number] [id number] Apr, Supervision of with grand multiparity in first trimester O09.41 ; BMI 40.0-44.9, adult Z68.41 and Obesity complicating , first trimester O99.211 [facility] [id number], [place] [id number] Mar, [facility] [address] [place] [address] [id number] Mar, Encounter for test, result unknown Z32.00 [facility] [id number], [place] [id number] 02 Dec, 2016 Encounter for Nexplanon removal Z30.46 [facility] [id number], [place] [phone] Nov, [place] [address] [id number], [place] [id number] Sep, Well woman exam with routine gynecological exam Z01.419 and Hidradenitis suppurativa L73.2 [facility] [id number] [place] [address] [id number] Aug, Morbid obesity due to excess calories E66.01 [place] [address] [id number], [place] [id number] 14 Mar, 2016 Wellness examination Z00.00 ; control counseling Z30.09 ; Uses contraceptive implant for control Z78.9 and Morbid obesity due to excess calories E66.01 [facility] [address]00565100[place], [place] [id number] Feb, Right facial pain R51 IMMUNIZATIONS No Known Immunizations SOCIAL HISTORY Never Assessed REASON FOR VISIT OB f/uFernando Kaur ma PLAN OF CARE Activity Details Follow Up 2 Weeks Reason: VITAL SIGNS Height 70 in 2017-08-21 Weight 267.8 lbs 2017-08-21 Temperature 97.8 degrees Fahrenheit 2017-08-21 Heart Rate 94 bpm 2017-08-21 Respiratory Rate 16 2017-08-21 Oximetry 98 % 2017-08-21 BMI 38.425 kg/m2 2017-08-21 Blood pressure systolic 128 mmHg 2017-08-21 Blood pressure diastolic 78 mmHg 2017-08-21 MEDICATIONS Medication Instructions Dosage Frequency Start Date End Date Duration Status Promethazine HCl 25 MG Orally every 6 hrs 1 tablet as needed 6h Jul, Nov, 30 day(s) Active Vitamin 27-0.8 MG Orally Once a day [...] empty stomach 24h June, 30 day(s) Active RESULTS No Results PROCEDURES Procedure Date Ordered Result Body Site URINE-NO MICRO August 21, 2017 LAB NOT BILLED BY [facility] August 21, 2017 VENIPUNCT, ROUTINE* August 21, 2017 OB US, LIMITED, FETUS(S) August 21, 2017 INSTRUCTIONS MEDICATIONS ADMINISTERED No Known Medications MEDICAL (GENERAL) HISTORY Type Description Date Medical History Hydranitis Suppuritiva Medical History Vaginal Delivery Medical History Obesity Surgical History cholecystectomy 05/08/17 Hospitalization History childbirth only
--- OUTSIDE RECORDS SUMMARY | 2017-11-15 06:06 | XMS REPORT ---
Author Author PAULO CANTU Organization [facility] Address [address] [place] [address] Care Team Providers Care 3D Animator Name Role Phone GUSTAVOBENJIEABELANGYT Unavailable PROBLEMS Type Condition ICD9-CM Code [id number] Code Onset Dates Condition Status SNOMED Code Problem Grand multiparity Z64.1 Active 92085334 Problem Chloasma L81.1 Active 88604498 Problem Diseases of the skin and subcutaneous tissue complicating , unspecified trimester O99.719 Active 960896210 Problem Uterine size date discrepancy, third trimester O26.843 Active Problem Other specified related conditions, third trimester O26.893 Active 871646512 Problem Type A blood, Rh negative Z67.11 Active 380113035 Problem Abnormal glucose tolerance test R73.02 Active 571269126 Problem Other specified related conditions, unspecified trimester O26.899 Active 141492002 Problem Heartburn R12 Active 45244698 Problem History of general anesthesia Z98.890 Active 5916195128443 Problem Nausea and vomiting during O21.9 Active 41364037 Problem Encounter for supervision of other normal , third trimester Z34.83 Active 82211349 Problem Morbid obesity due to excess calories E66.01 Active 408736216 Problem Obesity complicating , third trimester O99.213 Active 083754663547 Problem Constipation, unspecified K59.00 Active 18297741 Problem Disease of digestive system affecting in third trimester O99.613 Active 416510132 ALLERGIES No Known Allergies ENCOUNTERS Encounter Location Date Diagnosis [facility] [address] [id number] [place] [id number] Nov, [facility] [address] [id number] [place] [id number] Oct, Encounter for supervision of other normal [...] negative Z67.11 and BMI 40.0-44.9, adult Z68.[address] [place] [address] [id number] Oct, Encounter for supervision of other normal , third trimester Z34.83 ; Grand multiparity Z64.1 ; Obesity complicating , third trimester O99.213 ; Disease of digestive system affecting in third trimester O99.613 ; Heartburn R12 ; Other specified related conditions , third trimester O26.893 and Type A blood, Rh negative Z67.11 [address] [place] [address] [id number] Oct, Encounter for supervision of other normal , third trimester Z34.83 ; Grand multiparity Z64.1 ; Obesity complicating , third trimester O99.213 ; Other specified related conditions, third trimester O26.893 ; Heartburn R12 ; Type A blood, Rh negative Z67.11 ; Encounter for screening for Streptococcus B Z36.85 and Uterine size date discrepancy, third trimester O26.[address] [id number], [place] [id number] Sep, Encounter for supervision of other normal , third trimester Z34.83 ; Nausea and vomiting during O21.9 ; Other specified related conditions, third trimester O26.893 ; Heartburn R12 ; Lower abdominal pain, unspecified R10.30 ; Other specified related conditions, unspecified trimester O26.899 ; Encounter for immunization Z23 and Grand multiparity Z64.[address] [place] [address] [id number] Sep, Encounter for supervision of other normal [...] and Obesity complicating , third trimester O99.213 [facility] [address] [id number], [place] [id number] Aug, Encounter for supervision of other normal , third trimester Z34.83 [facility] [id number], [place] [id number] Aug, Abnormal glucose tolerance test R73.02 [facility] [id number], [place] [id number] Aug, Encounter for supervision of other normal , third trimester Z34.83 ; Obesity complicating , third trimester O99.213 ; Nausea and vomiting during O21.9 ; Abnormal glucose tolerance test R73.02 and Type A blood, Rh negative Z67.11 [facility]ALSESHERYL [facility] [id number] [id number] Aug, Encounter for supervision of other normal [...] Breech presentation, single or unspecified fetus O32.1XX0 [facility] ([facility])[address] [facility] [address] [id number], [place] [id number] Jul, Contact sensitivity to metal, current reaction L23.0 ; Chloasma L81.1 ; Diseases of the skin and subcutaneous tissue complicating , unspecified trimester O99.719 and Grand multiparity with current in second trimester O09.42 [place] [id number], [place] [id number] Jul, [facility] [address] [id number] [place] [address] [id number] Jul, [facility] [place] [id number], [place] [id number] Jul, Supervision of with grand multiparity in second trimester O09.42 ; Obesity complicating , second trimester O99.212 ; Nausea and vomiting during O21.9 and Grand multiparity with current in second trimester O09.42 [address] [place] [address] [id number] June, Supervision of with grand multiparity in second trimester O09.42 ; Obesity complicating , second trimester O99.212 ; Nausea and vomiting during O21.9 and History of general anesthesia Z98.890 [place] [id number] [place] [address] [id number] May, Supervision of with grand multiparity in first trimester O09.41 ; Obesity complicating , first trimester O99.211 ; Constipation, unspecified K59.00 and Diseases of the digestive system complicating , first trimester O99.[address] [place] [address] [id number] Apr, Supervision of with grand multiparity in first trimester O09.41 [facility] [address] [id number], [place] [id number] Apr, [place] [id number] [place] [address] [id number] Apr, Supervision of with grand multiparity in first trimester O09.41 ; BMI 40.0-44.9, adult Z68.41 and Obesity complicating , first trimester O99.211 [facility] [address] [id number], [place] [id number] Mar, [place] [id number] [place] [address] [id number] Mar, Encounter for test, result unknown Z32.00 [place] [id number] [place] [address] [id number] Dec, Encounter for Nexplanon removal Z30.46 [address]00565100[place], [place] [id number] Nov, [facility] [address] [id number], [place] [id number] Sep, Well woman exam with routine gynecological exam Z01.419 and Hidradenitis suppurativa L73.2 [facility] [address] [id number], [place] [id number] Aug, Morbid obesity due to excess calories E66.01 [facility] [address]00565100[place], [place] [id number] 14 Mar, 2016 Wellness examination Z00.00 ; control counseling Z30.09 ; Uses contraceptive implant for control Z78.9 and Morbid obesity due to excess calories E66.01 [facility] [address] [id number], [place] [id number] Feb, Right facial pain R51 IMMUNIZATIONS Vaccine Route Administration Date Status TDAP (BOOSTRIX) IM Intramuscular Sep 28, 2017 Administered SOCIAL HISTORY Never Assessed REASON FOR VISIT OB f/u- Tdap needed Kaye JOHNSON PLAN OF CARE Activity Details Follow Up 3 Weeks Reason: VITAL SIGNS Height 70.5 in 2017-09-28 Weight 278.6 lbs 2017-09-28 Temperature 97.8 degrees Fahrenheit 2017-09-28 Heart Rate 98 bpm 2017-09-28 Respiratory Rate 18 2017-09-28 BMI 39.41 kg/m2 2017-09-28 Blood pressure systolic 120 mmHg 2017-09-28 Blood pressure diastolic 70 mmHg 2017-09-28 MEDICATIONS Medication Instructions Dosage Frequency Start Date End Date Duration Status Ranitidine HCl 150 MG Orally twice a day 1 tablet 12h Sep, 30 day(s) Active Vitamin 27-0.8 MG Orally Once a day 1 tablet 24h Active Promethazine HCl 25 MG Orally every 6 hrs 1 tablet as needed 6h Jul, Nov, 30 day(s) Not-Taking Polyethylene Glycol 3350 - Orally Once a day as directed 24h May, Oct, 28 days Not-Taking Ondansetron 4 MG Orally every six hours as needed for nausea 1 tablet dissolved under tongue Apr, 30 days Not-Taking Diclegis 10-10 MG Orally Once a day 2 tablets at bedtime on an empty stomach 24h June, 30 day(s) Not-Taking Ondansetron 4 MG Orally every 6 hrs 1 tablet on the tongue and allow to dissolve as needed 6h Sep, 30 days Active RESULTS Name Result Date Reference Range UA OB DIP (IN HOUSE) 2017-09-28 Glucose neg Protein neg UA LONG DIP (IN HOUSE) 2017-09-28 Lot # [id number] Exp date 01/2018 Clarity clear Color yellow Odor none GLU neg VARSHA neg KET neg SG 1.020 BLO neg pH 7.0 Protein neg URO 1.0 NIT neg TEJAS neg Lot # Exp date PROCEDURES Procedure Date Ordered Result Body Site URINE-NO MICRO Sep 28, 2017 URINALYSIS, AUTO, W/O SCOPE Sep 28, 2017 SINGLE IMMUNIZATION ADMIN Sep 28, 2017 TDAP (BOOSTRIX) Sep 28, 2017 INSTRUCTIONS MEDICATIONS ADMINISTERED No Known Medications MEDICAL (GENERAL) HISTORY Type Description Date Medical History Hydranitis Suppuritiva Medical History Vaginal Delivery Medical History Obesity Surgical History cholecystectomy 05/08/17 Hospitalization History childbirth only
--- OUTSIDE RECORDS SUMMARY | 2017-11-15 06:07 | XMS REPORT ---
Author Author PAULO CANTU Organization [facility] Address [address] [place] [address] Care Team Providers Care Black Topper Name Role Phone GUSTAVOBENJIETAZPAULO Shi Unavailable PROBLEMS Type Condition ICD9-CM Code [id number] Code Onset Dates Condition Status SNOMED Code Problem Encounter for supervision of other normal , third trimester Z34.83 Active 57457005 Problem Grand multiparity with current in second trimester O09.42 Active 07141389 Problem Chloasma L81.1 Active 63768969 Problem Other specified related conditions, third trimester O26.893 Active 537465663 Problem Other specified related conditions, unspecified trimester O26.899 Active 081177349 Problem Abnormal glucose tolerance test R73.02 Active 392078502 Problem Diseases of the skin and subcutaneous tissue complicating , unspecified trimester O99.719 Active 507666071 Problem Heartburn R12 Active 26269941 Problem Type A blood, Rh negative Z67.11 Active 127589149 Problem History of general anesthesia Z98.890 Active 2838269978687 Problem Morbid obesity due to excess calories E66.01 Active 349872331 Problem Obesity complicating , second trimester O99.212 Active 950684106201 Problem Nausea and vomiting during O21.9 Active 02130689 Problem Grand multiparity Z64.1 Active 60776567 Problem Constipation, unspecified K59.00 Active 27310957 Problem Disease of digestive system affecting in third trimester O99.613 Active 321678641 Problem Diseases of the digestive system complicating , first trimester O99.611 Active 00473112 Problem Obesity complicating , third trimester O99.213 Active 421239368001 ALLERGIES No Known Allergies ENCOUNTERS Encounter Location Date Diagnosis [facility] [address] [facility] [id number] [place] [id number] Oct, [facility] [address] [place] [id number] [id number] Sep, Encounter for supervision of other normal , third trimester Z34.83 ; Nausea and vomiting during O21.9 ; Other specified related conditions, third trimester O26.893 ; Heartburn R12 ; Lower abdominal pain, unspecified R10.30 ; Other specified related conditions, unspecified trimester O26.899 and Encounter for immunization Z23 [address] [place] [address] [id number] Sep, Encounter for supervision of other normal , third trimester Z34.[address] [place] [address] [id number] Aug, Encounter for supervision of other normal , third trimester Z34.83 [address] [place] [address] [id number] Aug, Abnormal glucose tolerance test R73.[address] [facility] [id number] [place] [id number] Aug, Encounter for supervision of other normal , third trimester Z34.83 ; Obesity complicating , third trimester O99.213 ; Nausea and vomiting during O21.9 ; Abnormal glucose tolerance test R73.02 and Type A blood, Rh negative Z67.11 [place] [id number] [place] [address] [id number] Aug, Encounter for supervision of other normal [...] Breech presentation, single or unspecified fetus O32.1XX0 [facility] [id number] [place] [id number] Jul, Contact sensitivity to metal, current reaction L23.0 ; Chloasma L81.1 ; Diseases of the skin and subcutaneous tissue complicating , unspecified trimester O99.719 and Grand multiparity with current in second trimester O09.42 [facility] [id number] [place]ILLS[place] [id number] Jul, [facility] [place] [id number] [place] [id number] Jul, [facility] [place] [address]00565100[place] [id number] Jul, Supervision of with grand multiparity in second trimester O09.42 ; Obesity complicating , second trimester O99.212 ; Nausea and vomiting during O21.9 and Grand multiparity with current in second trimester O09.42 [facility] [place] [address] [id number] [place] [address] [phone] June, Supervision of with grand multiparity in second trimester O09.42 ; Obesity complicating , second trimester O99.212 ; Nausea and vomiting during O21.9 and History of general anesthesia Z98.890 [facility] CHA[address]NDA[address] [place] [phone] May, Supervision of with grand multiparity in first trimester O09.41 ; Obesity complicating , first trimester O99.211 ; Constipation, unspecified K59.00 and Diseases of the digestive system complicating , first trimester O99.611 [facility] [address]DA[address]00565100[place] [id number] Apr, Supervision of with grand multiparity in first trimester O09.41 [facility] [address] [id number][place] [id number] Apr, [place] [id number] [id number] Apr, Supervision of with grand multiparity in first trimester O09.41 ; BMI 40.0-44.9, adult Z68.41 and Obesity complicating , first trimester O99.211 [facility] [address] [id number][place] [id number] Mar, [facility] CHAOFERNANDA[address] [place] [address] [phone] Mar, Encounter for test, result unknown Z32.00 [facility] [id number] [place]ILLS[place] [id number] 02 Dec, 2016 Encounter for Nexplanon removal Z30.46 [facility] [id number] [place]ILLS[place] [phone] Nov, [place] [address] [id number] HILLS[place] [id number] Sep, Well woman exam with routine gynecological exam Z01.419 and Hidradenitis suppurativa L73.2 [facility] [id number] [place] [address] [id number] Aug, Morbid obesity due to excess calories E66.01 [place] [id number] [place]ILLS[place] [id number] 14 Mar, 2016 Wellness examination Z00.00 ; control counseling Z30.09 ; Uses contraceptive implant for control Z78.9 and Morbid obesity due to excess calories E66.01 [facility] [address]00565100[place] [id number] Feb, Right facial pain R51 IMMUNIZATIONS No Known Immunizations SOCIAL HISTORY Never Assessed REASON FOR VISIT Rash on hand (left)---KAR segovia PLAN OF CARE Activity Details Follow Up 3-4 weeks as previously scheduled Reason: VITAL SIGNS Height 70 in 2017-07-30 Weight 272.1 lbs 2017-07-30 Temperature 97.8 degrees Fahrenheit 2017-07-30 Heart Rate 88 bpm 2017-07-30 Respiratory Rate 16 2017-07-30 BMI 39.04 kg/m2 2017-07-30 Blood pressure systolic 110 mmHg 2017-07-30 Blood pressure diastolic 62 mmHg 2017-07-30 MEDICATIONS Medication Instructions Dosage Frequency Start Date End Date Duration Status Ondansetron 4 MG Orally every six hours as needed for nausea 1 tablet dissolved under tongue Apr, 30 days Active Diclegis 10-10 MG Orally Once a day 2 tablets at bedtime on an empty stomach 24h June, 30 day(s) Not-Taking Polyethylene Glycol 3350 - Orally Once a day as directed 24h May, Oct, 28 days Active Promethazine HCl 25 MG Orally every 6 hrs 1 tablet as needed 6h Jul, Nov, 30 day(s) Active Vitamin 27-0.8 MG Orally Once a day 1 tablet 24h Active RESULTS No Results PROCEDURES No Known procedures INSTRUCTIONS MEDICATIONS ADMINISTERED No Known Medications MEDICAL (GENERAL) HISTORY Type Description Date Medical History Hydranitis Suppuritiva Medical History Vaginal Delivery Medical History Obesity Surgical History cholecystectomy 05/08/17 Hospitalization History childbirth only
--- OUTSIDE RECORDS SUMMARY | 2017-11-15 06:07 | XMS REPORT ---
Author Author PAULO CANTU Organization [facility] Address [address] [place] [address] Care Team Providers Care Web Interface Developer Name Role Phone PAULO CANTU Unavailable PROBLEMS Type Condition ICD9-CM Code WCH83-FW Code Onset Dates Condition Status SNOMED Code Problem Encounter for supervision of other normal , third trimester Z34.83 Active 38209014 Problem Grand multiparity Z64.1 Active 85664232 Problem Obesity complicating , third trimester O99.213 Active 223852313754 Problem Type A blood, Rh negative Z67.11 Active 176973448 Problem Abnormal glucose tolerance test R73.02 Active 436918707 Problem Grand multiparity with current in second trimester O09.42 Active 30083127 Problem Disease of digestive system affecting in third trimester O99.613 Active 937755679 Problem Diseases of the skin and subcutaneous tissue complicating , unspecified trimester O99.719 Active 362271346 Problem Chloasma L81.1 Active 98218908 Problem Morbid obesity due to excess calories E66.01 Active 715302043 Problem Diseases of the digestive system complicating , first trimester O99.611 Active 61404948 Problem History of general anesthesia Z98.890 Active 1188515279270 Problem Constipation, unspecified K59.00 Active 30777801 Problem Obesity complicating , second trimester O99.212 Active 201342452120 Problem Nausea and vomiting during O21.9 Active 96625904 ALLERGIES No Known Allergies ENCOUNTERS Encounter Location Date Diagnosis [facility] [address] [facility] [id number], [place] [id number] Sep, [facility] [address] [facility] [id number], [place] [id number] Aug, Encounter for supervision of other normal , third trimester Z34.83 [facility] [address] [facility] [id number], [place] [id number] Aug, Abnormal glucose tolerance test R73.02 [facility] [id number], [place] [id number] Aug, Encounter for supervision of other normal , third trimester Z34.83 ; Obesity complicating , third trimester O99.213 ; Nausea and vomiting during O21.9 ; Abnormal glucose tolerance test R73.02 and Type A blood, Rh negative Z67.[address] [id number], [place] [id number] Aug, Encounter for supervision of other normal [...] presentation, single or unspecified fetus O32.1XX0 [facility] [id number], [place] [phone] Jul, Contact sensitivity to metal, current reaction L23.0 ; Chloasma L81.1 ; Diseases of the skin and subcutaneous tissue complicating , unspecified trimester O99.719 and Grand multiparity with current in second trimester O09.[address] [id number], [place] [id number] Jul, [place] [id number], [place] [id number] Jul, [address] [id number], [place] [id number] Jul, Supervision of with grand multiparity in second trimester O09.42 ; Obesity complicating , second trimester O99.212 ; Nausea and vomiting during O21.9 and Grand multiparity with current in second trimester O09.[address] [id number], [place] [id number] June, Supervision of with grand multiparity in second trimester O09.42 ; Obesity complicating , second trimester O99.212 ; Nausea and vomiting during O21.9 and History of general anesthesia Z98.890 [place] [id number] [place] [id number] May, Supervision of with grand multiparity in first trimester O09.41 ; Obesity complicating , first trimester O99.211 ; Constipation, unspecified K59.00 and Diseases of the digestive system complicating , first trimester O99.[address] [place] [id number] [place] [id number] Apr, Supervision of with grand multiparity in first trimester O09.41 [facility]ERSONWeixinhaiSANC[facility] [id number] [place] [phone] Apr, [place] [id number] [place] [id number] Apr, Supervision of with grand multiparity in first trimester O09.41 ; BMI 40.0-44.9, adult Z68.41 and Obesity complicating , first trimester O99.211 [facility] SANCHEZ [address] [facility] [id number], [place] [id number] Mar, [place] [id number] [place] [address] [id number] Mar, Encounter for test, result unknown Z32.00 [place] [id number] [place] [address] [id number] Dec, Encounter for Nexplanon removal Z30.46 [place] [id number] [place] [address] [id number] Nov, [place] [id number] [place] [id number] Sep, Well woman exam with routine gynecological exam Z01.419 and Hidradenitis suppurativa L73.2 [place] [id number] [place] [id number] Aug, Morbid obesity due to excess calories E66.[address] [id number] 14 Mar, 2016 Wellness examination Z00.00 ; control counseling Z30.09 ; Uses contraceptive implant for control Z78.9 and Morbid obesity due to excess calories E66.01 [facility] [address] [id number] [place] [phone] Feb, Right facial pain R51 IMMUNIZATIONS No Known Immunizations SOCIAL HISTORY Never Assessed REASON FOR VISIT OB f/u--12 weeks, had emergency gallbladder surgery 05/08/16---KAR segovia PLAN OF CARE Activity Details Follow Up 4 Weeks, 4 Weeks Reason: VITAL SIGNS Height 70 in 2017-05-10 Weight 274 lbs 2017-05-10 Temperature 98.7 degrees Fahrenheit 2017-05-10 Heart Rate 102 bpm 2017-05-10 Respiratory Rate 16 2017-05-10 BMI 39.315 kg/m2 2017-05-10 Blood pressure systolic 130 mmHg 2017-05-10 Blood pressure diastolic 76 mmHg 2017-05-10 MEDICATIONS Medication Instructions Dosage Frequency Start Date End Date Duration Status Polyethylene Glycol 3350 - Orally Once a day as directed 24h May, Oct, 28 days Active Vitamin 27-0.8 MG Orally Once a day 1 tablet 24h Active Hydrocodone-Acetaminophen 5-325 MG Orally every 6 hrs 1 tablet as needed 6h Active Ondansetron 4 MG Orally every six hours as needed for nausea 1 tablet dissolved under tongue Apr, 30 days Active RESULTS No Results PROCEDURES No Known procedures INSTRUCTIONS MEDICATIONS ADMINISTERED No Known Medications MEDICAL (GENERAL) HISTORY Type Description Date Medical History Hydranitis Suppuritiva Medical History Vaginal Delivery Medical History Obesity Surgical History cholecystectomy 05/08/17 Hospitalization History childbirth only
--- OUTSIDE RECORDS SUMMARY | 2017-11-15 06:07 | XMS REPORT ---
Author Author PAULO CANTU Organization [facility] Address [address] [place] [address] Care Team Providers Care Transformer Shop Supervisor Name Role Phone GUSTAVOBENJIETAZPAULO Shi Unavailable PROBLEMS Type Condition ICD9-CM Code RCY08-QK Code Onset Dates Condition Status SNOMED Code Problem Encounter for supervision of other normal , third trimester Z34.83 Active 11992707 Problem Grand multiparity with current in second trimester O09.42 Active 89492897 Problem Chloasma L81.1 Active 00829267 Problem Other specified related conditions, third trimester O26.893 Active 874939731 Problem Other specified related conditions, unspecified trimester O26.899 Active 528404540 Problem Abnormal glucose tolerance test R73.02 Active 472960687 Problem Diseases of the skin and subcutaneous tissue complicating , unspecified trimester O99.719 Active 336085848 Problem Heartburn R12 Active 19669330 Problem Type A blood, Rh negative Z67.11 Active 428205357 Problem History of general anesthesia Z98.890 Active 0358258943658 Problem Morbid obesity due to excess calories E66.01 Active 361392199 Problem Obesity complicating , second trimester O99.212 Active 671506739646 Problem Nausea and vomiting during O21.9 Active 69754584 Problem Grand multiparity Z64.1 Active 20204971 Problem Constipation, unspecified K59.00 Active 24151061 Problem Disease of digestive system affecting in third trimester O99.613 Active 052098542 Problem Diseases of the digestive system complicating , first trimester O99.611 Active 87586454 Problem Obesity complicating , third trimester O99.213 Active 211447118057 ALLERGIES No Information ENCOUNTERS Encounter Location Date Diagnosis [facility] [address] [facility] [id number] [place] [id number] Oct, [facility] [address] [place] [id number] [place] [id number] Sep, Encounter for supervision of other normal , third trimester Z34.83 ; Nausea and vomiting during O21.9 ; Other specified related conditions, third trimester O26.893 ; Heartburn R12 ; Lower abdominal pain, unspecified R10.30 ; Other specified related conditions, unspecified trimester O26.899 and Encounter for immunization Z23 [facility] [id number] [place] [address] [id number] Sep, Encounter for supervision of other normal , third trimester Z34.83 [facility] [id number] [place] [address] [id number] Aug, Encounter for supervision of other normal , third trimester Z34.83 [facility] [id number] [place] [address] [id number] Aug, Abnormal glucose tolerance test R73.02 [facility] [address] [id number] [place] [id number] Aug, Encounter for supervision of other normal , third trimester Z34.83 ; Obesity complicating , third trimester O99.213 ; Nausea and vomiting during O21.9 ; Abnormal glucose tolerance test R73.02 and Type A blood, Rh negative Z67.11 [facility] [address] [place] [id number] [place] [address] [id number] Aug, Encounter for supervision of other normal [...] single or unspecified fetus O32.1XX0 [facility] [address] [address] [id number] [place] [phone] Jul, Contact sensitivity to metal, current reaction L23.0 ; Chloasma L81.1 ; Diseases of the skin and subcutaneous tissue complicating , unspecified trimester O99.719 and Grand multiparity with current in second trimester O09.42 [facility] [address]DA[address]00565100[place] [id number] Jul, [facility] [place] [address] [place] [address] [id number] Jul, [facility] [address]00565100[place] [id number] Jul, Supervision of with grand multiparity in second trimester O09.42 ; Obesity complicating , second trimester O99.212 ; Nausea and vomiting during O21.9 and Grand multiparity with current in second trimester O09.42 [facility] [place]ANICO[place] [id number] [place] [address] [id number] June, Supervision of with grand multiparity in second trimester O09.42 ; Obesity complicating , second trimester O99.212 ; Nausea and vomiting during O21.9 and History of general anesthesia Z98.890 [facility] [address] [place] [id number] May, Supervision of with grand multiparity in first trimester O09.41 ; Obesity complicating , first trimester O99.211 ; Constipation, unspecified K59.00 and Diseases of the digestive system complicating , first trimester O99.611 [facility] [address]00565100[place], [place] [id number] Apr, Supervision of with grand multiparity in first trimester O09.41 [facility] [address] [id number], [place] [id number] Apr, [place] [id number] [id number] Apr, Supervision of with grand multiparity in first trimester O09.41 ; BMI 40.0-44.9, adult Z68.41 and Obesity complicating , first trimester O99.211 [facility] [address] [address] [id number], [place] [id number] Mar, [facility] FERNANDA[address] [place] [address] [id number] Mar, Encounter for test, result unknown Z32.00 [place] [address] [id number], [place] [id number] 02 Dec, 2016 Encounter for Nexplanon removal Z30.46 [address]00565100[place], [place] [id number] Nov, [address]00565100[place], [place] [id number] Sep, Well woman exam with routine gynecological exam Z01.419 and Hidradenitis suppurativa L73.2 [address]00565100[place], [place] [id number] Aug, Morbid obesity due to excess calories E66.01 [address]00565100[place], [place] [id number] 14 Mar, 2016 Wellness examination Z00.00 ; control counseling Z30.09 ; Uses contraceptive implant for control Z78.9 and Morbid obesity due to excess calories E66.01 [address]00565100[place], [place] [id number] Feb, Right facial pain R51 IMMUNIZATIONS No Known Immunizations SOCIAL HISTORY Never Assessed REASON FOR VISIT requesting med/PA PLAN OF CARE VITAL SIGNS MEDICATIONS Medication Instructions Dosage Frequency Start Date End Date Duration Status Promethazine HCl 25 MG Orally every 6 hrs 1 tablet as needed 6h Jul, Nov, 30 day(s) Active RESULTS No Results PROCEDURES No Known procedures INSTRUCTIONS MEDICATIONS ADMINISTERED No Known Medications MEDICAL (GENERAL) HISTORY Type Description Date Medical History Hydranitis Suppuritiva Medical History Vaginal Delivery Medical History Obesity Surgical History cholecystectomy 05/08/17 Hospitalization History childbirth only
--- OUTSIDE RECORDS SUMMARY | 2017-11-15 06:07 | XMS REPORT ---
Author Author PAULO CANTU Organization [facility] Address [address] [place] [address] Care Team Providers Care Flower Buncher Or Picker Name Role Phone GUSTAVOBENJIETAZPAULO Shi Unavailable PROBLEMS Type Condition ICD9-CM Code [id number] Code Onset Dates Condition Status SNOMED Code Problem Encounter for supervision of other normal , third trimester Z34.83 Active 67125209 Problem Grand multiparity with current in second trimester O09.42 Active 72699041 Problem Chloasma L81.1 Active 16017040 Problem Other specified related conditions, third trimester O26.893 Active 549692342 Problem Other specified related conditions, unspecified trimester O26.899 Active 197973493 Problem Abnormal glucose tolerance test R73.02 Active 143395089 Problem Diseases of the skin and subcutaneous tissue complicating , unspecified trimester O99.719 Active 607975763 Problem Heartburn R12 Active 43266827 Problem Type A blood, Rh negative Z67.11 Active 115062329 Problem History of general anesthesia Z98.890 Active 1845647009596 Problem Morbid obesity due to excess calories E66.01 Active 711111933 Problem Obesity complicating , second trimester O99.212 Active 781746279362 Problem Nausea and vomiting during O21.9 Active 93232414 Problem Grand multiparity Z64.1 Active 42636372 Problem Constipation, unspecified K59.00 Active 26158185 Problem Disease of digestive system affecting in third trimester O99.613 Active 601874553 Problem Diseases of the digestive system complicating , first trimester O99.611 Active 15880811 Problem Obesity complicating , third trimester O99.213 Active [id number] ALLERGIES No Known Allergies ENCOUNTERS Encounter Location Date Diagnosis [facility] [address] [facility] [id number] [place] [id number] Oct, [facility] [address] [place] [id number] [id number] Sep, Encounter for supervision of other normal , third trimester Z34.83 ; Nausea and vomiting during O21.9 ; Other specified related conditions, third trimester O26.893 ; Heartburn R12 ; Lower abdominal pain, unspecified R10.30 ; Other specified related conditions, unspecified trimester O26.899 and Encounter for immunization Z23 [address] [place] [address] [id number] Sep, Encounter for supervision of other normal , third trimester Z34.83 [address] [place] [address] [id number] Aug, Encounter for supervision of other normal , third trimester Z34.83 [address] [place] [address] [id number] Aug, Abnormal glucose tolerance test R73.[address] [id number] [place] [address] [id number] Aug, Encounter for supervision of other normal , third trimester Z34.83 ; Obesity complicating , third trimester O99.213 ; Nausea and vomiting during O21.9 ; Abnormal glucose tolerance test R73.02 and Type A blood, Rh negative Z67.11 [place] [id number] [place] [address] [id number] Aug, Encounter for supervision of other normal [...] Breech presentation, single or unspecified fetus O32.1XX0 [facility]ITALGlenRose [address] [id number] [place] [id number] Jul, Contact sensitivity to metal, current reaction L23.0 ; Chloasma L81.1 ; Diseases of the skin and subcutaneous tissue complicating , unspecified trimester O99.719 and Grand multiparity with current in second trimester O09.42 [facility] [id number] [id number] Jul, [facility] [place] [id number] [place] [address] [id number] Jul, [facility] [place] [address]00565[place] [id number] Jul, Supervision of with grand multiparity in second trimester O09.42 ; Obesity complicating , second trimester O99.212 ; Nausea and vomiting during O21.9 and Grand multiparity with current in second trimester O09.42 [facility] [address]KIM[id number] [place] [address] [phone] June, Supervision of with grand multiparity in second trimester O09.42 ; Obesity complicating , second trimester O99.212 ; Nausea and vomiting during O21.9 and History of general anesthesia Z98.890 [facility] CHA[address]DA[address] [place] [address] [id number] May, Supervision of with grand multiparity in first trimester O09.41 ; Obesity complicating , first trimester O99.211 ; Constipation, unspecified K59.00 and Diseases of the digestive system complicating , first trimester O99.611 [facility] [address]DA[address]00565100[place] [id number] Apr, Supervision of with grand multiparity in first trimester O09.41 [facility]Glen[facility] [address] [id number] [id number] Apr, [place] [id number] [id number] Apr, Supervision of with grand multiparity in first trimester O09.41 ; BMI 40.0-44.9, adult Z68.41 and Obesity complicating , first trimester O99.211 [facility] [address] [id number], [place] [id number] Mar, [facility] CH[address]NA[address]DA[address] [place] [phone] Mar, Encounter for test, result unknown Z32.00 [facility] [id number], [place] [id number] 02 Dec, 2016 Encounter for Nexplanon removal Z30.46 [facility] [id number], [place] [id number] 18 Nov, 2016 [address]100[place] [phone] Sep, Well woman exam with routine gynecological exam Z01.419 and Hidradenitis suppurativa L73.[address] [place] [address] [id number] Aug, Morbid obesity due to excess calories E66.01 [address]005[address]100[place] [id number] 14 Mar, 2016 Wellness examination Z00.00 ; control counseling Z30.09 ; Uses contraceptive implant for control Z78.9 and Morbid obesity due to excess calories E66.01 [address]005[address]100[place], [place] [id number] Feb, Right facial pain R51 IMMUNIZATIONS No Known Immunizations SOCIAL HISTORY Never Assessed REASON FOR VISIT Followup up 21 weeks 2 days---KAR segovia PLAN OF CARE Activity Details Follow Up 4 Weeks Reason: Pending Test UA OB DIP (IN HOUSE) VITAL SIGNS Height 70 in 2017-07-12 Weight 272.8 lbs 2017-07-12 Temperature 98.6 degrees Fahrenheit 2017-07-12 Heart Rate 96 bpm 2017-07-12 Respiratory Rate 16 2017-07-12 BMI 39.143 kg/m2 2017-07-12 Blood pressure systolic 126 mmHg 2017-07-12 Blood pressure diastolic 70 mmHg 2017-07-12 MEDICATIONS Medication Instructions Dosage Frequency Start Date End Date Duration Status Diclegis 10-10 MG Orally Once a day 2 tablets at bedtime on an empty stomach 24h June, 30 day(s) Not-Taking Polyethylene Glycol 3350 - Orally Once a day as directed 24h May, Oct, 28 days Active Vitamin 27-0.8 MG Orally Once a day 1 tablet 24h Active Ondansetron 4 MG Orally every six hours as needed for nausea 1 tablet dissolved under tongue Apr, 30 days Active RESULTS No Results PROCEDURES Procedure Date Ordered Result Body Site URINE-NO MICRO July 12, 2017 INSTRUCTIONS MEDICATIONS ADMINISTERED No Known Medications MEDICAL (GENERAL) HISTORY Type Description Date Medical History Hydranitis Suppuritiva Medical History Vaginal Delivery Medical History Obesity Surgical History cholecystectomy 05/08/17 Hospitalization History childbirth only
--- OUTSIDE RECORDS SUMMARY | 2017-11-15 06:07 | XMS REPORT ---
Author Author PAULO CANTU Organization [facility] Address [address] [place] [address] Care Team Providers Care Senior Pricing Analyst Name Role Phone GUSTAVOBENJIETAZPAULO Shi Unavailable PROBLEMS Type Condition ICD9-CM Code [id number] Code Onset Dates Condition Status SNOMED Code Problem Encounter for supervision of other normal , third trimester Z34.83 Active 64227763 Problem Grand multiparity with current in second trimester O09.42 Active 54451349 Problem Chloasma L81.1 Active 05085733 Problem Other specified related conditions, third trimester O26.893 Active 161420918 Problem Other specified related conditions, unspecified trimester O26.899 Active 192809920 Problem Abnormal glucose tolerance test R73.02 Active 214845911 Problem Diseases of the skin and subcutaneous tissue complicating , unspecified trimester O99.719 Active 416680754 Problem Heartburn R12 Active 46763385 Problem Type A blood, Rh negative Z67.11 Active 795182918 Problem History of general anesthesia Z98.890 Active 3624135646906 Problem Morbid obesity due to excess calories E66.01 Active 428492794 Problem Obesity complicating , second trimester O99.212 Active 576474333762 Problem Nausea and vomiting during O21.9 Active 66303231 Problem Grand multiparity Z64.1 Active 98508868 Problem Constipation, unspecified K59.00 Active 58840235 Problem Disease of digestive system affecting in third trimester O99.613 Active 943911925 Problem Diseases of the digestive system complicating , first trimester O99.611 Active 30626907 Problem Obesity complicating , third trimester O99.213 Active [id number] ALLERGIES No Information ENCOUNTERS Encounter Location Date Diagnosis [facility] [address] [facility] [id number] [place] [phone] Oct, [facility] [id number] [place] [address] [id number] Sep, Encounter for supervision of other normal , third trimester Z34.83 ; Nausea and vomiting during O21.9 ; Other specified related conditions, third trimester O26.893 ; Heartburn R12 ; Lower abdominal pain, unspecified R10.30 ; Other specified related conditions, unspecified trimester O26.899 and Encounter for immunization Z23 [facility] [id number] [place] [address] [phone] Sep, Encounter for supervision of other normal , third trimester Z34.83 [facility] [id number] [place] [address] [id number] Aug, Encounter for supervision of other normal , third trimester Z34.83 [facility] [id number] [place] [address] [id number] Aug, Abnormal glucose tolerance test R73.[address] [address] [id number] [place] [phone] Aug, Encounter for supervision of other normal , third trimester Z34.83 ; Obesity complicating , third trimester O99.213 ; Nausea and vomiting during O21.9 ; Abnormal glucose tolerance test R73.02 and Type A blood, Rh negative Z67.11 [facility] [id number] [place] [address] [id number] Aug, Encounter for supervision of other normal [...] Breech presentation, single or unspecified fetus O32.1XX0 [facility] [id number] [place] [id number] Jul, Contact sensitivity to metal, current reaction L23.0 ; Chloasma L81.1 ; Diseases of the skin and subcutaneous tissue complicating , unspecified trimester O99.719 and Grand multiparity with current in second trimester O09.42 [facility] CHAOFERNANDA[address]005[address]100[place] [id number] Jul, [facility] [place] [address] [place] [address] [phone] Jul, [facility] [address]00565100[place] [id number] Jul, Supervision of with grand multiparity in second trimester O09.42 ; Obesity complicating , second trimester O99.212 ; Nausea and vomiting during O21.9 and Grand multiparity with current in second trimester O09.42 [facility] [place]DAJESS[id number] [place] [address] [id number] June, Supervision of with grand multiparity in second trimester O09.42 ; Obesity complicating , second trimester O99.212 ; Nausea and vomiting during O21.9 and History of general anesthesia Z98.890 [facility] [address] [place] [address] [phone] May, Supervision of with grand multiparity in first trimester O09.41 ; Obesity complicating , first trimester O99.211 ; Constipation, unspecified K59.00 and Diseases of the digestive system complicating , first trimester O99.611 [facility] [address]005[address]100[place] [id number] Apr, Supervision of with grand multiparity in first trimester O09.41 [facility] [address] [id number][place] [id number] Apr, [place] [id number] [id number] Apr, Supervision of with grand multiparity in first trimester O09.41 ; BMI 40.0-44.9, adult Z68.41 and Obesity complicating , first trimester O99.211 [facility] [address] [id number], [place] [id number] Mar, [facility] FERNANDA[address] [place] [address] [phone] Mar, Encounter for test, result unknown Z32.00 [address]005[address]100[place] [id number] 02 Dec, 2016 Encounter for Nexplanon removal Z30.46 [address]100[place] [id number] Nov, [address]100[place] [id number] Sep, Well woman exam with routine gynecological exam Z01.419 and Hidradenitis suppurativa L73.2 [address] [id number] Aug, Morbid obesity due to excess calories E66.01 [address] [id number] 14 Mar, 2016 Wellness examination Z00.00 ; control counseling Z30.09 ; Uses contraceptive implant for control Z78.9 and Morbid obesity due to excess calories E66.01 [address]100[place] [id number] Feb, Right facial pain R51 IMMUNIZATIONS No Known Immunizations SOCIAL HISTORY Never Assessed REASON FOR VISIT FYI PLAN OF CARE VITAL SIGNS MEDICATIONS Unknown Medications RESULTS No Results PROCEDURES No Known procedures INSTRUCTIONS MEDICATIONS ADMINISTERED No Known Medications MEDICAL (GENERAL) HISTORY Type Description Date Medical History Hydranitis Suppuritiva Medical History Vaginal Delivery Medical History Obesity Surgical History cholecystectomy 05/08/17 Hospitalization History childbirth only
--- OUTSIDE RECORDS SUMMARY | 2017-11-15 06:08 | XMS REPORT ---
Author Author PAULO CANTU Organization [facility] Address [address] [place] [address] Care Team Providers Care Deputy Sheriff Generalist/Bailiff Name Role Phone PAULO CANTU Unavailable PROBLEMS Type Condition ICD9-CM Code [id number] Code Onset Dates Condition Status SNOMED Code Problem Encounter for supervision of other normal , third trimester Z34.83 Active 40069610 Problem Grand multiparity Z64.1 Active 16082311 Problem Obesity complicating , third trimester O99.213 Active 823164755935 Problem Type A blood, Rh negative Z67.11 Active 043870633 Problem Abnormal glucose tolerance test R73.02 Active 567613846 Problem Grand multiparity with current in second trimester O09.42 Active 76695607 Problem Disease of digestive system affecting in third trimester O99.613 Active 903728276 Problem Diseases of the skin and subcutaneous tissue complicating , unspecified trimester O99.719 Active 245617233 Problem Chloasma L81.1 Active 98558538 Problem Morbid obesity due to excess calories E66.01 Active 527915760 Problem Diseases of the digestive system complicating , first trimester O99.611 Active 70932808 Problem History of general anesthesia Z98.890 Active 6032555478154 Problem Constipation, unspecified K59.00 Active 80647767 Problem Obesity complicating , second trimester O99.212 Active 336848279004 Problem Nausea and vomiting during O21.9 Active 71247781 ALLERGIES No Information ENCOUNTERS Encounter Location Date Diagnosis [facility] [address] [id number] [place] [id number] Sep, [facility] [address] [id number] [place] [id number] Aug, Encounter for supervision of other normal , third trimester Z34.83 ; Obesity complicating , third trimester O99.213 ; Nausea and vomiting during O21.9 ; Abnormal glucose tolerance test R73.02 and Type A blood, Rh negative Z67.11 [facility] [id number] [place] [address] [id number] Aug, Encounter for supervision of other normal [...] Breech presentation, single or unspecified fetus O32.1XX0 [facility] [address] [id number], [place] [id number] Jul, Contact sensitivity to metal, current reaction L23.0 ; Chloasma L81.1 ; Diseases of the skin and subcutaneous tissue complicating , unspecified trimester O99.719 and Grand multiparity with current in second trimester O09.42 [facility] [address] [facility] [id number], [place] [id number] Jul, [facility] [id number] [place] [address] [id number] Jul, [facility] [id number] [place] [address] [id number] Jul, Supervision of with grand multiparity in second trimester O09.42 ; Obesity complicating , second trimester O99.212 ; Nausea and vomiting during O21.9 and Grand multiparity with current in second trimester O09.42 [facility] [address] [facility] [id number], [place] [id number] June, Supervision of with grand multiparity in second trimester O09.42 ; Obesity complicating , second trimester O99.212 ; Nausea and vomiting during O21.9 and History of general anesthesia Z98.890 [facility] [address] [place] [address] [id number] May, Supervision of with grand multiparity in first trimester O09.41 ; Obesity complicating , first trimester O99.211 ; Constipation, unspecified K59.00 and Diseases of the digestive system complicating , first trimester O99.611 [address] [place] [address] [id number] Apr, Supervision of with grand multiparity in first trimester O09.41 [facility] SANCHEZ [address] [place] [address] [id number] Apr, [place] [id number] [place] [address] [phone] Apr, Supervision of with grand multiparity in first trimester O09.41 ; BMI 40.0-44.9, adult Z68.41 and Obesity complicating , first trimester O99.211 [facility] SANCHEZ [employer] [place] [address] [id number], [place] [phone] Mar, [place] [id number] [place] [address] [id number] Mar, Encounter for test, result unknown Z32.00 [place] [id number] [place] [address] [id number] 02 Dec, 2016 Encounter for Nexplanon removal Z30.46 [place] [address] [place] [address] [id number] 18 Nov, 2016 [address] [address] [place] [address] [phone] Sep, Well woman exam with routine gynecological exam Z01.419 and Hidradenitis suppurativa L73.2 [place] [address] [place] [address] [id number] 19 Aug, 2016 Morbid obesity due to excess calories E66.[address] [id number] 14 Mar, 2016 Wellness examination Z00.00 ; control counseling Z30.09 ; Uses contraceptive implant for control Z78.9 and Morbid obesity due to excess calories E66.01 [place] [address] [place] [address] [phone] Feb, Right facial pain R51 IMMUNIZATIONS No Known Immunizations SOCIAL HISTORY Never Assessed REASON FOR VISIT Lab (walk-in)--KAR segovia PLAN OF CARE Activity Details Pending Test GC/CHLAMYDIA (SWAB OR URINE)-RAPID VITAL SIGNS MEDICATIONS Unknown Medications RESULTS No Results PROCEDURES Procedure Date Ordered Result Body Site [facility] April 27, 2017 CHRMOML ANEUPLOIDY April 27, 2017 VENIPUNCT, ROUTINE* April 27, 2017 INSTRUCTIONS MEDICATIONS ADMINISTERED No Known Medications MEDICAL (GENERAL) HISTORY Type Description Date Medical History Hydranitis Suppuritiva Medical History Vaginal Delivery Medical History Obesity Surgical History cholecystectomy 05/08/17 Hospitalization History childbirth only
--- OUTSIDE RECORDS SUMMARY | 2017-11-15 06:08 | XMS REPORT ---
Author Author CAL SUAREZ Organization [facility] Address [address] [place] [address] Care Team Providers Care Screen Tender Helper Name Role Phone CAL SUAREZ Unavailable PROBLEMS Type Condition ICD9-CM Code [id number] Code Onset Dates Condition Status SNOMED Code Problem Supervision of with grand multiparity in second trimester O09.42 Active 78718998 Problem Nausea and vomiting during O21.9 Active 30946592 Problem Constipation, unspecified K59.00 Active 17710779 Problem Obesity complicating , second trimester O99.212 Active 026288234988 Problem History of general anesthesia Z98.890 Active 6239345973930 Problem Diseases of the digestive system complicating , first trimester O99.611 Active 26761262 Problem Morbid obesity due to excess calories E66.01 Active 220620991 ALLERGIES No Information ENCOUNTERS Encounter Location Date Diagnosis [facility] [address] [place] [address] [id number] Aug, [facility] [place] [address] [facility] [address] [id number] [id number] Jul, [facility] [id number] [place] [address] [id number] Jul, [place] [id number] [place] [address] [id number] Jul, [facility] [address] [place] [address] [id number] Jul, Supervision of with grand multiparity in second trimester O09.42 ; Obesity complicating , second trimester O99.212 and Nausea and vomiting during O21.[id number] [place] [address] [id number] June, Supervision of with grand multiparity in second trimester O09.42 ; Obesity complicating , second trimester O99.212 ; Nausea and vomiting during O21.9 and History of general anesthesia Z98.890 [place] [address] [place] [address] [id number] May, Supervision of with grand multiparity in first trimester O09.41 ; Obesity complicating , first trimester O99.211 ; Constipation, unspecified K59.00 and Diseases of the digestive system complicating , first trimester O99.611 [place] [address] [place] [address] [id number] Apr, Supervision of with grand multiparity in first trimester O09.41 [facility] [address] [place] [id number] [place] [address] [id number] Apr, [place] [address] [place] [address] [id number] Apr, Supervision of with grand multiparity in first trimester O09.41 ; BMI 40.0-44.9, adult Z68.41 and Obesity complicating , first trimester O99.211 [facility] [address] [facility] [id number] [place] [address] [id number] Mar, [place] [address] [place] [address] [id number] Mar, Encounter for test, result unknown Z32.00 [place] [address] [place] [address] [id number] Dec, Encounter for Nexplanon removal Z30.46 [place] [address] [place] [address] [id number] Nov, [place] [address] [place] [address] [id number] Sep, Well woman exam with routine gynecological exam Z01.419 and Hidradenitis suppurativa L73.2 [place] [address] [place] [address] [id number] Aug, Morbid obesity due to excess calories E66.01 [place] [address] [place] [address] [id number] 14 Mar, 2016 Wellness examination Z00.00 ; control counseling Z30.09 ; Uses contraceptive implant for control Z78.9 and Morbid obesity due to excess calories E66.01 [facility] [address] [facility] [id number] [place] [phone] Feb, Right facial pain R51 IMMUNIZATIONS No Known Immunizations SOCIAL HISTORY Never Assessed REASON FOR VISIT pregancy uriine test-KAR segovia PLAN OF CARE VITAL SIGNS MEDICATIONS Unknown Medications RESULTS Name Result Date Reference Range TEST, URINE (IN HOUSE) 2017-03-29 RESULTS positive Lot # [id number] Control positive Exp date 09/04/18 PROCEDURES Procedure Date Ordered Result Body Site URINE TEST Mar 29, 2017 INSTRUCTIONS MEDICATIONS ADMINISTERED No Known Medications MEDICAL (GENERAL) HISTORY Type Description Date Medical History Hydranitis Suppuritiva Medical History Vaginal Delivery Medical History Obesity Surgical History cholecystectomy 05/08/17 Hospitalization History childbirth only
--- OUTSIDE RECORDS SUMMARY | 2017-11-15 06:08 | XMS REPORT ---
Author Author PAULO CANTU Organization [facility] Address [address] [place] [address] Care Team Providers Care Buttonhole Maker Name Role Phone PAULO CANTU Unavailable PROBLEMS Type Condition ICD9-CM Code ECL74-WQ Code Onset Dates Condition Status SNOMED Code Problem Nausea and vomiting during O21.9 Active 39370732 Problem Constipation, unspecified K59.00 Active 46383777 Problem Supervision of with grand multiparity in first trimester O09.41 Active 00670534 Problem Morbid obesity due to excess calories E66.01 Active 575298995 Problem Diseases of the digestive system complicating , first trimester O99.611 Active 95778827 Problem Obesity complicating , first trimester O99.211 Active 398784130619 ALLERGIES No Known Allergies ENCOUNTERS Encounter Location Date Diagnosis [id number] [place] [address] [id number] June, [place] [id number] [place] [address] [phone] May, Supervision of with grand multiparity in first trimester O09.41 ; Obesity complicating , first trimester O99.211 ; Constipation, unspecified K59.00 and Diseases of the digestive system complicating , first trimester O99.611 [facility] 120 [facility] [id number] [id number] Apr, Supervision of with grand multiparity in first trimester O09.41 [facility] [address] [facility] [address] [id number] [id number] Apr, [facility] 120 [facility] [id number][place] [id number] Apr, Supervision of with grand multiparity in first trimester O09.41 ; BMI 40.0-44.9, adult Z68.41 and Obesity complicating , first trimester O99.211 [facility] SANCHEZ [address] [facility] [address] [id number] [place] [phone] Mar, [facility] 120 [facility] [id number], [place] [phone] Mar, Encounter for test, result unknown Z32.00 [facility] [address]65[address] [id number] 02 Dec, 2016 Encounter for Nexplanon removal Z30.46 [facility] [address]00565100[place] [id number] 18 Nov, [address] [place] [id number] [place] [address] [phone] Sep, Well woman exam with routine gynecological exam Z01.419 and Hidradenitis suppurativa L73.[address] [place] [address] [id number] 19 Aug, 2016 Morbid obesity due to excess calories E66.01 [address]65100[place] [id number] 14 Mar, 2016 Wellness examination Z00.00 ; control counseling Z30.09 ; Uses contraceptive implant for control Z78.9 and Morbid obesity due to excess calories E66.01 [address]65100[place] [id number] 27 Feb, 2016 Right facial pain R51 IMMUNIZATIONS No Known Immunizations SOCIAL HISTORY Never Assessed REASON FOR VISIT Well Woman Exam Stefan JOHNSON PLAN OF CARE Activity Details Follow Up follow up in ~1 month for nexplanon removal Reason: Pending Test [facility] Pap and HPV mRNA E6/E7 VITAL SIGNS Height 70 in 2016-10-05 Weight 284.1 lbs 2016-10-05 Temperature 98 degrees Fahrenheit 2016-10-05 Heart Rate 82 bpm 2016-10-05 Respiratory Rate 20 2016-10-05 BMI 40.76 kg/m2 2016-10-05 Blood pressure systolic 128 mmHg 2016-10-05 Blood pressure diastolic 70 mmHg 2016-10-05 MEDICATIONS Unknown Medications RESULTS No Results PROCEDURES Procedure Date Ordered Result Body Site SPECIMEN HANDLING Oct 05, 2016 INSTRUCTIONS MEDICATIONS ADMINISTERED No Known Medications MEDICAL (GENERAL) HISTORY Type Description Date Medical History Hydranitis Suppuritiva Medical History Vaginal Delivery Medical History Obesity Surgical History cholecystectomy 05/08/17 Hospitalization History childbirth only
--- OUTSIDE RECORDS SUMMARY | 2017-11-15 06:08 | XMS REPORT ---
Author Author PAULO CANTU Organization [facility] Address [address] [place] [address] Care Team Providers Care Hob Machine Operator Name Role Phone PAULO CANTU Unavailable PROBLEMS Type Condition ICD9-CM Code ZOW43-ZD Code Onset Dates Condition Status SNOMED Code Problem Encounter for supervision of other normal , third trimester Z34.83 Active 52994399 Problem Grand multiparity Z64.1 Active 84591645 Problem Obesity complicating , third trimester O99.213 Active 310324517791 Problem Type A blood, Rh negative Z67.11 Active 882879196 Problem Abnormal glucose tolerance test R73.02 Active 681323080 Problem Grand multiparity with current in second trimester O09.42 Active 98404169 Problem Disease of digestive system affecting in third trimester O99.613 Active 563705060 Problem Diseases of the skin and subcutaneous tissue complicating , unspecified trimester O99.719 Active 912460428 Problem Chloasma L81.1 Active 31065702 Problem Morbid obesity due to excess calories E66.01 Active 764528980 Problem Diseases of the digestive system complicating , first trimester O99.611 Active 41797922 Problem History of general anesthesia Z98.890 Active 6066049764770 Problem Constipation, unspecified K59.00 Active 00530214 Problem Obesity complicating , second trimester O99.212 Active 659071036637 Problem Nausea and vomiting during O21.9 Active 29753472 ALLERGIES No Information ENCOUNTERS Encounter Location Date Diagnosis [facility] [address] [id number] [place] [id number] Sep, [facility] [address] [id number] [place] [phone] Aug, Encounter for supervision of other normal , third trimester Z34.83 ; Obesity complicating , third trimester O99.213 ; Nausea and vomiting during O21.9 ; Abnormal glucose tolerance test R73.02 and Type A blood, Rh negative Z67.11 [facility] [id number] [place] [address] [id number] Aug, Encounter for supervision of other normal [...] Breech presentation, single or unspecified fetus O32.1XX0 [facility] [address] [id number] [place] [phone] Jul, Contact sensitivity to metal, current reaction L23.0 ; Chloasma L81.1 ; Diseases of the skin and subcutaneous tissue complicating , unspecified trimester O99.719 and Grand multiparity with current in second trimester O09.42 [facility] [address] [facility] [id number][place] [id number] Jul, [facility] [address] [place] [id number] [place] [address] [id number] Jul, [facility] [id number] [place] [address] [id number] Jul, Supervision of with grand multiparity in second trimester O09.42 ; Obesity complicating , second trimester O99.212 ; Nausea and vomiting during O21.9 and Grand multiparity with current in second trimester O09.42 [facility] [address] [facility] [id number][place] [id number] June, Supervision of with grand multiparity in second trimester O09.42 ; Obesity complicating , second trimester O99.212 ; Nausea and vomiting during O21.9 and History of general anesthesia Z98.890 [facility] [address] [place] [address] [id number] May, Supervision of with grand multiparity in first trimester O09.41 ; Obesity complicating , first trimester O99.211 ; Constipation, unspecified K59.00 and Diseases of the digestive system complicating , first trimester O99.611 [place] [address] [place] [address] [id number] Apr, Supervision of with grand multiparity in first trimester O09.[address] [facility] SANCHEZ [address] [place] [address] [id number] Apr, [place] [id number] [place] [address] [id number] Apr, Supervision of with grand multiparity in first trimester O09.41 ; BMI 40.0-44.9, adult Z68.41 and Obesity complicating , first trimester O99.[address] [facility] SANCHEZ [facility] [place] [address] [id number] [place] [id number] Mar, [place] [address] [place] [address] [id number] Mar, Encounter for test, result unknown Z32.00 [place] [id number] [place] [address] [id number] 02 Dec, 2016 Encounter for Nexplanon removal Z30.46 [place] [address] [place] [address] [id number] 18 Nov, 2016 [place] [address] [place] [address] [id number] Sep, Well woman exam with routine gynecological exam Z01.419 and Hidradenitis suppurativa L73.2 [place] [address] [place] [address] [id number] 19 Aug, 2016 Morbid obesity due to excess calories E66.[address] [id number] 14 Mar, 2016 Wellness examination Z00.00 ; control counseling Z30.09 ; Uses contraceptive implant for control Z78.9 and Morbid obesity due to excess calories E66.01 [place] [address] [place] [address] [id number] Feb, Right facial pain R51 IMMUNIZATIONS No Known Immunizations SOCIAL HISTORY Never Assessed REASON FOR VISIT Medication question PLAN OF CARE VITAL SIGNS MEDICATIONS Medication [...]
--- OUTSIDE RECORDS SUMMARY | 2017-11-15 06:08 | XMS REPORT ---
Author Author PAULO CANTU Organization [facility] Address [address] [place] [address] Care Team Providers Care Supervisor Brake Repair Name Role Phone PAULO CANTU Unavailable PROBLEMS Type Condition ICD9-CM Code TXQ90-JE Code Onset Dates Condition Status SNOMED Code Problem Supervision of with grand multiparity in second trimester O09.42 Active 61950158 Problem Nausea and vomiting during O21.9 Active 33871019 Problem Constipation, unspecified K59.00 Active 31260671 Problem Obesity complicating , second trimester O99.212 Active 072275591481 Problem History of general anesthesia Z98.890 Active 9656753798309 Problem Diseases of the digestive system complicating , first trimester O99.611 Active 67380201 Problem Morbid obesity due to excess calories E66.01 Active 887571692 ALLERGIES No Information ENCOUNTERS Encounter Location Date Diagnosis [place] [id number] [place] [address] [id number] 07 Jul, 2017 [place] [id number] [place] [address] [id number] June, [address] [place] [address] [id number] June, Supervision of with grand multiparity in second trimester O09.42 ; Obesity complicating , second trimester O99.212 and Nausea and vomiting during O21.[address] [place] [address] [id number] 05 May, 2017 Supervision of with grand multiparity in first trimester O09.41 ; Obesity complicating , first trimester O99.211 ; Constipation, unspecified K59.00 and Diseases of the digestive system complicating , first trimester O99.611 [place] [address] [place] [address] [id number] Apr, Supervision of with grand multiparity in first trimester O09.[address] [id number], [place] [id number] Apr, [address] [place] [address] [id number] Apr, Supervision of with grand multiparity in first trimester O09.41 ; BMI 40.0-44.9, adult Z68.41 and Obesity complicating , first trimester O99.211 [facility] [address] [id number], [place] [id number] 26 Mar, 2017 [place] [id number] [place] [address] [id number] 22 Mar, 2017 Encounter for test, result unknown Z32.00 [place] [id number] [place] [address] [id number] 02 Dec, 2016 Encounter for Nexplanon removal Z30.46 [place] [id number] [place] [address] [id number] 18 Nov, 2016 [place] [id number] [place] [address] [id number] 31 Sep, 2016 Well woman exam with routine gynecological exam Z01.419 and Hidradenitis suppurativa L73.[address] [place] [address] [id number] 19 Aug, 2016 Morbid obesity due to excess calories E66.01 [place] [id number] [place] [address] [id number] 14 Mar, 2016 Wellness examination Z00.00 ; control counseling Z30.09 ; Uses contraceptive implant for control Z78.9 and Morbid obesity due to excess calories E66.[address] [place] [address] [id number] 27 Feb, 2016 Right facial pain R51 IMMUNIZATIONS No Known Immunizations SOCIAL HISTORY Never Assessed REASON FOR VISIT PAP results PLAN OF CARE VITAL SIGNS MEDICATIONS Unknown Medications RESULTS No Results PROCEDURES No Known procedures INSTRUCTIONS MEDICATIONS ADMINISTERED No Known Medications MEDICAL (GENERAL) HISTORY Type Description Date Medical History Hydranitis Suppuritiva Medical History Vaginal Delivery Medical History Obesity Surgical History cholecystectomy 05/08/17 Hospitalization History childbirth only
--- OUTSIDE RECORDS SUMMARY | 2017-11-15 06:08 | XMS REPORT ---
Author Author PAULO CANTU Organization [facility] Address [address] [place] [address] Care Team Providers Care Statistical Methods Teacher Name Role Phone PAULO CANTU Unavailable PROBLEMS Type Condition ICD9-CM Code UVQ96-OV Code Onset Dates Condition Status SNOMED Code Problem Constipation, unspecified K59.00 Active 92515977 Problem Obesity complicating , third trimester O99.213 Active 937907540831 Problem Nausea and vomiting during O21.9 Active 50917762 Problem History of general anesthesia Z98.890 Active 2352282759106 Problem Obesity complicating , second trimester O99.212 Active 004514918395 Problem Morbid obesity due to excess calories E66.01 Active 355126327 Problem Diseases of the digestive system complicating , first trimester O99.611 Active 07810852 Problem Chloasma L81.1 Active 26370704 Problem Diseases of the skin and subcutaneous tissue complicating , unspecified trimester O99.719 Active 368616901 Problem Grand multiparity Z64.1 Active 83721767 Problem Encounter for supervision of other normal , third trimester Z34.83 Active 34931841 Problem Grand multiparity with current in second trimester O09.42 Active 48866428 Problem Disease of digestive system affecting in third trimester O99.613 Active 120402367 ALLERGIES No Known Allergies ENCOUNTERS Encounter Location Date Diagnosis [facility] [address] [facility] [id number] [place] [id number] Sep, [facility] [address] [facility] [id number] [place] [id number] Aug, Encounter for supervision of other normal [...] Breech presentation, single or unspecified fetus O32.1XX0 [facility] Ibarra0 [facility] [id number][place] [id number] Jul, Contact sensitivity to metal, current reaction L23.0 ; Chloasma L81.1 ; Diseases of the skin and subcutaneous tissue complicating , unspecified trimester O99.719 and Grand multiparity with current in second trimester O09.42 [place] [id number] [place] [address] [id number] Jul, [place] [address] [place] [address] [id number] Jul, [place] [address] [place] [address] [id number] Jul, Supervision of with grand multiparity in second trimester O09.42 ; Obesity complicating , second trimester O99.212 ; Nausea and vomiting during O21.9 and Grand multiparity with current in second trimester O09.42 [place] [address] [place] [address] [id number] June, Supervision of with grand multiparity in second trimester O09.42 ; Obesity complicating , second trimester O99.212 ; Nausea and vomiting during O21.9 and History of general anesthesia Z98.890 [place] [address] [place] [address] [id number] May, Supervision of with grand multiparity in first trimester O09.41 ; Obesity complicating , first trimester O99.211 ; Constipation, unspecified K59.00 and Diseases of the digestive system complicating , first trimester O99.[address] [place] [address] [id number] Apr, Supervision of with grand multiparity in first trimester O09.41 [facility] SANC[facility] [address] [facility] [id number], [place] [id number] Apr, [facility] [address] [facility] [id number], [place] [id number] Apr, Supervision of with grand multiparity in first trimester O09.41 ; BMI 40.0-44.9, adult Z68.41 and Obesity complicating , first trimester O99.211 [facility] [address] [id number], [place] [id number] Mar, [address] [place] [address] [id number] Mar, Encounter for test, result unknown Z32.00 [place] [id number] [place] [address] [id number] 02 Dec, 2016 Encounter for Nexplanon removal Z30.46 [address] [place] [address] [id number] 18 Nov, [address] [place] [address] [id number] Sep, Well woman exam with routine gynecological exam Z01.419 and Hidradenitis suppurativa L73.[address] [place] [address] [id number] 19 Aug, 2016 Morbid obesity due to excess calories E66.01 [address] [place] [address] [id number] 14 Mar, 2016 Wellness examination Z00.00 ; control counseling Z30.09 ; Uses contraceptive implant for control Z78.9 and Morbid obesity due to excess calories E66.01 [address], [place] [id number] 27 Feb, 2016 Right facial pain R51 IMMUNIZATIONS No Known Immunizations SOCIAL HISTORY Never Assessed REASON FOR VISIT OB-intake--luca, KAR PLAN OF CARE Activity Details Follow Up 4 Weeks Reason: VITAL SIGNS Height 70 in 2017-04-12 Weight 286 lbs 2017-04-12 Temperature 98.2 degrees Fahrenheit 2017-04-12 Heart Rate 76 bpm 2017-04-12 Respiratory Rate 16 2017-04-12 BMI 41.037 kg/m2 2017-04-12 Blood pressure systolic 138 mmHg 2017-04-12 Blood pressure diastolic 60 mmHg 2017-04-12 MEDICATIONS Medication Instructions Dosage Frequency Start Date End Date Duration Status Vitamin 27-0.8 MG Orally Once a day 1 tablet 24h Active RESULTS No Results PROCEDURES Procedure Date Ordered Result Body Site URINALYSIS, AUTO, W/O SCOPE April 12, 2017 URINE-NO MICRO April 12, 2017 LAB NOT BILLED BY [facility] April 12, 2017 DRUG TEST PRSMV DIR OPT OBS April 12, 2017 INSTRUCTIONS MEDICATIONS ADMINISTERED No Known Medications MEDICAL (GENERAL) HISTORY Type Description Date Medical History Hydranitis Suppuritiva Medical History Vaginal Delivery Medical History Obesity Surgical History cholecystectomy 05/08/17 Hospitalization History childbirth only
--- OUTSIDE RECORDS SUMMARY | 2017-11-15 06:08 | XMS REPORT ---
Author Author CAL SUAREZ Organization [facility] Address [address] [place] [address] Care Team Providers Care Employment Evaluator/Case Manager Name Role Phone CAL SUAREZ Unavailable PROBLEMS Type Condition ICD9-CM Code [id number] Code Onset Dates Condition Status SNOMED Code Problem Supervision of with grand multiparity in second trimester O09.42 Active 19953421 Problem Nausea and vomiting during O21.9 Active 29152996 Problem Constipation, unspecified K59.00 Active 28177834 Problem Obesity complicating , second trimester O99.212 Active 991229682792 Problem History of general anesthesia Z98.890 Active 0942428822987 Problem Diseases of the digestive system complicating , first trimester O99.611 Active 03570623 Problem Morbid obesity due to excess calories E66.01 Active 197472793 ALLERGIES No Information ENCOUNTERS Encounter Location Date Diagnosis [facility] [id number] [place] [id number] Aug, [facility] [place] [id number] [id number] [id number] Jul, [facility] [id number] [place] [address] [id number] Jul, [place] [id number] [place] [address] [id number] Jul, [facility] [address] [place] [address] [id number] Jul, Supervision of with grand multiparity in second trimester O09.42 ; Obesity complicating , second trimester O99.212 and Nausea and vomiting during O21.[id number] [place] [address] [id number] June, Supervision of with grand multiparity in second trimester O09.42 ; Obesity complicating , second trimester O99.212 ; Nausea and vomiting during O21.9 and History of general anesthesia Z98.[address] [place] [id number] [place] [address] [id number] May, Supervision of with grand multiparity in first trimester O09.41 ; Obesity complicating , first trimester O99.211 ; Constipation, unspecified K59.00 and Diseases of the digestive system complicating , first trimester O99.[address] [place] [id number] [place] [address] [id number] Apr, Supervision of with grand multiparity in first trimester O09.41 [email or web address] [id number] [place] [address] [id number] Apr, [place] [id number] [place] [address] [id number] Apr, Supervision of with grand multiparity in first trimester O09.41 ; BMI 40.0-44.9, adult Z68.41 and Obesity complicating , first trimester O99.211 [email or web address] [address] [facility] [id number] [place] [address] [id number] Mar, [place] [id number] [place] [address] [id number] Mar, Encounter for test, result unknown Z32.[address] [place] [id number] [place] [address] [id number] Dec, Encounter for Nexplanon removal Z30.46 [place] [id number] [place] [address] [id number] Nov, [place] [id number] [place] [address] [id number] Sep, Well woman exam with routine gynecological exam Z01.419 and Hidradenitis suppurativa L73.[address] [place] [id number] [place] [address] [id number] Aug, Morbid obesity due to excess calories E66.[address] [place] [id number] [place] [address] [id number] 14 Mar, 2016 Wellness examination Z00.00 ; control counseling Z30.09 ; Uses contraceptive implant for control Z78.9 and Morbid obesity due to excess calories E66.[address] [id number] [id number] Feb, Right facial pain R51 IMMUNIZATIONS No Known Immunizations SOCIAL HISTORY Never Assessed REASON FOR VISIT triage PLAN OF CARE VITAL SIGNS MEDICATIONS Unknown Medications RESULTS No Results PROCEDURES No Known procedures INSTRUCTIONS MEDICATIONS ADMINISTERED No Known Medications MEDICAL (GENERAL) HISTORY Type Description Date Medical History Hydranitis Suppuritiva Medical History Vaginal Delivery Medical History Obesity Surgical History cholecystectomy 05/08/17 Hospitalization History childbirth only
--- OUTSIDE RECORDS SUMMARY | 2017-11-15 06:08 | XMS REPORT ---
Author Author CAL SUAREZ Organization [facility] Address [address] [place] [address] Care Team Providers Care Us Marketing Director Name Role Phone CAL SUAREZ Unavailable PROBLEMS Type Condition ICD9-CM Code [id number] Code Onset Dates Condition Status SNOMED Code Problem Nausea and vomiting during O21.9 Active 60523385 Problem Supervision of with grand multiparity in first trimester O09.41 Active 04787562 Problem Obesity complicating , first trimester O99.211 Active 628407794870 Problem Morbid obesity due to excess calories E66.01 Active 082381498 ALLERGIES No Information ENCOUNTERS Encounter Location Date Diagnosis [id number] [place] [address] [id number] May, [place] [id number] [place] [address] [id number] Apr, Supervision of with grand multiparity in first trimester O09.[id number] [place] [address] [id number] Apr, [address] [place] [address] [id number] Apr, Supervision of with grand multiparity in first trimester O09.41 ; BMI 40.0-44.9, adult Z68.41 and Obesity complicating , first trimester O99.211 [facility] [id number] [place] [address] [id number] Mar, [place] [id number] [place] [address] [id number] Mar, Encounter for test, result unknown Z32.00 [place] [id number] [place] [address] [id number] Dec, Encounter for Nexplanon removal Z30.46 [facility] [address] [facility] [id number] [id number] 18 Nov, [address] [place] [address] [id number] Sep, Well woman exam with routine gynecological exam Z01.419 and Hidradenitis suppurativa L73.[address] [place] [address] [id number] Aug, Morbid obesity due to excess calories E66.[address] [place] [address] [id number] 14 Mar, 2016 Wellness examination Z00.00 ; control counseling Z30.09 ; Uses contraceptive implant for control Z78.9 and Morbid obesity due to excess calories E66.01 [id number] [phone] Feb, Right facial pain R51 IMMUNIZATIONS No Known Immunizations SOCIAL HISTORY Never Assessed REASON FOR VISIT Lab [facility] PLAN OF CARE VITAL SIGNS MEDICATIONS Unknown Medications RESULTS No Results PROCEDURES Procedure Date Ordered Result Body Site LAB NOT BILLED BY [facility] August 23, 2016 MARIA ALEJANDRA CERVANTES* August 23, 2016 INSTRUCTIONS MEDICATIONS ADMINISTERED No Known Medications MEDICAL (GENERAL) HISTORY Type Description Date Medical History Hydranitis Suppuritiva Medical History Vaginal Delivery Medical History Obesity Hospitalization History childbirth only
[2017-11-15] MEDS: LACTATED RINGERS 1,000 ML IV PRN ×2 (06:10→07:06)
[2017-11-15] MEDS ORDERED: METOCLOPRAMIDE INJ 10 MG/2 ML (REGLAN) ONE (06:23)
[2017-11-15] MEDS ORDERED: CITRIC ACID/SOB CIT (BICITRA) 30 ML UDC ONE ×2 (06:23→18:47)
[2017-11-15] MEDS ORDERED: ceFAZolin 2 GM IV Premixed 50 ML ONE ×2 (06:23→18:48)
[2017-11-15] MEDS ORDERED: FAMOTIDINE 20MG/2ML IV (PEPCID) ONE ×2 (06:24→18:48)
[2017-11-15] MEDS ORDERED: ceFAZolin 2 GM IV Premixed 50 ML IV ONE ×2 (06:45→19:45)
[2017-11-15 06:49] LABS: BASOPHILS % (AUTO) 0 % (0-10); EOSINOPHILS # (AUTO) 0.1 10^3/uL (0.0-0.3); EOSINOPHILS % (AUTO) 1 % (0-10); HEMATOCRIT 34 % (35-52); HEMOGLOBIN 11.8 G/DL (11.5-16.0); LYMPHOCYTES # (AUTO) 1.8 X 10^3 (1.0-4.0); LYMPHOCYTES % (AUTO) 24 % (12-44); MEAN CORPUSCULAR HEMOGLOBIN 31 PG (25-34); MEAN CORPUSCULAR HGB CONC 35 G/DL (32-36); MEAN CORPUSCULAR VOLUME 89 FL (80-99); MONOCYTES # (AUTO) 0.5 X 10^3 (0.0-1.0); MONOCYTES % (AUTO) 7 % (0-12); NEUTROPHILS # (AUTO) 5.2 X 10^3 (1.8-7.8); NEUTROPHILS % (AUTO) 68 % (42-75); PLATELET COUNT 178 10^3/uL (130-400); RED BLOOD COUNT 3.77 10^6/uL (4.35-5.85); RED CELL DISTRIBUTION WIDTH 13.6 % (10.0-14.5); WHITE BLOOD COUNT 7.6 10^3/uL (4.3-11.0)
[2017-11-15] MEDS ORDERED: OXYTOCIN/NORMAL SALINE 500 ML IV ONE (07:28)
[2017-11-15] MEDS ORDERED: D5 LR IV SOLUTION 1,000 ML IV ONE (07:28)
[2017-11-15] MEDS ORDERED: LIDOCAINE/EPI 2% 1:200,00 (XYLOCAINE) 10 ML VIAL ONE (07:28)
[2017-11-15] MEDS: D5 LR IV SOLUTION 1,000 ML IV SCH ×2 (07:37→15:04)
--- NOTE | 2017-11-15 08:18 | History & Physical-OB ---
OB - Chief Complaint & HPI Date/Time Date of Admission: Date of Admission: Nov 15, 2017 at 6:01 am Date seen by a Provider: Nov 15, 2017 Time Seen by a Provider: 07:15 Chief Complaint/History OB-Reason for Admission/Chief: Induction of Labor Hx : 6 Hx Para: 5 Expected Date of Delivery: Nov 20, 2017 Gestational Age in Weeks: 39 Gestational Age in Days: 2 Indication for induction: other (39 week, unstable lye with now vertex presentation) Other reason for admission: Patient brought in today for ECV possible PLTCS. Noted today to be vertex, care was done by Dr. Hernández at [facility], however was taken over by myself due to an unstable ly Admission Nurse Assessment Rev: Yes History of Labs A neg Antibody neg RI RPR NR HBsAg NR HIV NR GC neg GBS unknown(awaiting [facility] records) Allergies and Home Medications Allergies Coded Allergies: No Known Drug Allergies (Unverified , 11/12/17) Home Medications Doxylamine/Pyridoxine HCl 1 Each Tablet.dr, 1 EACH PO PRN, (Reported) Ondansetron 4 Mg Tab.rapdis, 4 MG PO UD PRN for NAUSEA/VOMITING-1ST LINE, ( Reported) Pnv No.122/Iron/Folic Acid 1 Each Tablet, 1 TAB PO DAILY, (Reported) Polyethylene Glycol 3350 119 Gm Powder, 119 GM PO PRN, (Reported) Promethazine HCl 25 Mg Tablet, 25 MG PO Q6H PRN for NAUSEA/VOMITING, (Reported) Ranitidine HCl 150 Mg Tablet, 300 MG PO HS, (Reported) Patient Home Medication List Home Medication List Reviewed: Yes OB - History Hx of Present Care: Yes Ultrasounds: Normal mid trimester US Obstetrical Complications: None Medical Complications: None Delivery History Adverse Rxn to Tranfusion: No (N/A) Patient Past Medical History Hiddratenitis suppuritiva Social History/Family History HIV/AIDS: No Sexually Transmitted Disease: No 2nd Hand Smoke Exposure: No OB - Admission Exam Physical Exam Vitals: Vital Signs 11/15/17 07:00 Temp 97.5 Pulse 96 Resp 18 B/P (MAP) 130/75 (93) Pulse Ox 99 O2 Delivery Room Air HEENT: NCAT Heart: Rhythm Normal Lungs: Clear Abdomen: Gravid Extremities: Normal Reflexes: Normal Cervical Dilatation: 1cm Effacement: 75% Station: -1 Membranes: Intact Heart Rate: 140's Accelerations: Accelerations Present Decelerations: No Decelerations Short Term Variability: Present Group Home Variability: Average (6-25) Contractions on Admission: 6-10 Minutes Apart Intensity: Mild Labs Laboratory Tests Test 11/15/17 06:10 Range/Units White Blood Count 7.6 4.3-11.0 10^3/uL Red Blood Count 3.77 L 4.35-5.85 10^6/uL Hemoglobin 11.8 11.5-16.0 G/DL Hematocrit 34 L 35-52 % Mean Corpuscular Volume 89 80-99 FL Mean Corpuscular Hemoglobin 31 25-34 PG Mean Corpuscular Hemoglobin Concent 35 32-36 G/DL Red Cell Distribution Width 13.6 10.0-14.5 % Platelet Count 178 130-400 10^3/uL Mean Platelet Volume 11.0 H 7.4-10.4 FL Neutrophils (%) (Auto) 68 42-75 % Lymphocytes (%) (Auto) 24 12-44 % Monocytes (%) (Auto) 7 0-12 % Eosinophils (%) (Auto) 1 0-10 % Basophils (%) (Auto) 0 0-10 % Neutrophils # (Auto) 5.2 1.8-7.8 X 10^3 Lymphocytes # (Auto) 1.8 1.0-4.0 X 10^3 Monocytes # (Auto) 0.5 0.0-1.0 X 10^3 Eosinophils # (Auto) 0.1 0.0-0.3 10^3/uL Basophils # (Auto) 0.0 0.0-0.1 10^3/uL OB - Assessment/Plan/Diagnosis Assessment Assessment: induction of labor Admission Dx 32 yo @ 39.2 weeks Grand multiparity Unstable ly GBS unknown(pending [facility] records) Admission Status: Inpatient Order (span 2 midnights) Reason for Inpatient Admission: induction of labor Plan Plan: Induction Induction Method: ANUSHA WHITE DO Nov 15, 2017 8:18 am
[2017-11-15] MEDS ORDERED: OXYTOCIN/NORMAL SALINE 500 ML IV SCH (08:33)
[2017-11-15] MEDS ORDERED: LIDOCAINE/EPI 2% 1:200,00 (XYLOCAINE) 10 ML VIAL INJ ONE (08:45)
[2017-11-15] MEDS ORDERED: FLU QUADRIvalent (5+ YOA) 2018-2019 (AFLURIA) 0.5 ML IM ONE (11:00)
[2017-11-15] MEDS ORDERED: SUFENTA 0.6MCG/ML BUPIVA 0.125 100 ML ONE (16:28)
[2017-11-15] MEDS ORDERED: LACTATED RINGERS 1,000 ML IV SCH (17:13)
[2017-11-15] MEDS ORDERED: diphenhydrAMINE 50 MG/ML INJ (BENADRYL) IV PRN (17:15)
[2017-11-15] MEDS ORDERED: METOCLOPRAMIDE INJ 10 MG/2 ML (REGLAN) IV PRN (17:15)
[2017-11-15] MEDS ORDERED: ONDANSETRON 4 MG/2 ML (SDV) Z0FRAN IV PRN (17:15)
[2017-11-15] MEDS ORDERED: NALOXONE 0.4 MG/ML 1 ML (NARCAN) VIAL IV PRN ×2 (17:15)
[2017-11-15] MEDS ORDERED: EPIDURAL (SUFENTA 0.6MCG/ML BUPIVA 0.125%) 100 ML BAG EPI SCH (17:15)
--- NOTE | 2017-11-15 18:58 | Progress Note-Standard ---
Standard Progress Note Progress Notes/Assess & Plan Date Seen by a Provider: Nov 15, 2017 Time Seen by a Provider: 19:30 Progress/Assessment & Plan This 32-year-old was brought in this morning for external cephalic version found be in the vertex presentation. Artificial rupture membranes was performed and a scalp electrode was placed we commenced with Pitocin augmentation throughout the day today. The patient received an epidural approximately 5 o'clock this afternoon after which there was some question of heart tones and variable decelerations there was never engagement of the head down into the pelvis and there was actually movement to the maternal left. This evening hours able to identify with ultrasound that the uterus is now in the oblique left presentation. Due to malpresentation I recommended to the patient proceeding with section. Risk of the procedure discussed the patient detail and all of her questions were answered or staff was called and the procedure was to proceed as planned. NAUSHA SMALL DO Nov 15, 2017 18:58
[2017-11-15] MEDS ORDERED: ROPIVACAINE 5MG/ML 30ML VIAL ONE (19:10)
[2017-11-15] MEDS ORDERED: fentaNYL INJECTION 100 MCG/2 ML AMP ONE (19:10)
[2017-11-15] MEDS ORDERED: OXYTOCIN/NORMAL SALINE 1,000 ML IV ONE (19:10)
[2017-11-15] MEDS ORDERED: BUPIVACAINE 0.25% 30 ML (SENSORCAINE) VIAL ONE (19:10)
[2017-11-15] MEDS ORDERED: DEXAMETHASONE 10 MG/ML (DECADRON) 1 ML VIAL ONE (19:10)
[2017-11-15] MEDS ORDERED: KETOROLAC 30 MG/ML VIAL ONE (19:10)
[2017-11-15] MEDS ORDERED: ONDANSETRON 4 MG/2 ML (SDV) Z0FRAN ONE (19:10)
[2017-11-15] MEDS ORDERED: LIDOCAINE PF 2% 5 ML (XYLOCAINE) VIAL ONE (19:10)
[2017-11-15] MEDS ORDERED: LACTATED RINGERS 1,000 ML IV PRN (19:38)
[2017-11-15] MEDS ORDERED: FAMOTIDINE 20MG/2ML IV (PEPCID) IV ONE (19:45)
[2017-11-15] MEDS ORDERED: CITRIC ACID/SOB CIT (BICITRA) 30 ML UDC PO ONE (19:45)
[2017-11-15] MEDS ORDERED: METOCLOPRAMIDE INJ 10 MG/2 ML (REGLAN) IV ONE (19:45)
[2017-11-15] MEDS ORDERED: KETAMINE HCL 100 MG/ML 5 ML VIAL ONE (20:23)
[2017-11-15] MEDS ORDERED: ONDANSETRON 4 MG/2 ML (SDV) Z0FRAN IVP PRN (20:30)
[2017-11-15] MEDS ORDERED: MEASLES,MUMPS,RUBELLA 1 EA INJ SC SCH (20:30)
[2017-11-15] MEDS ORDERED: TETANUS,DIPTH,PERTUSS P/F (BOOSTRIX) 0.5 ML VIAL IM SCH (20:30)
[2017-11-15] MEDS ORDERED: HYDROmorphone 2 MG/ML VIAL (DILAUDID) IV PRN (20:30)
[2017-11-15] MEDS ORDERED: MIDAZOLAM 2 MG/2 ML (VERSED) VIAL ONE (20:46)
[2017-11-15] MEDS ORDERED: morphine INJ 10 MG/ML 1ML (SYR OR VIAL) ONE (20:54)
[2017-11-15] MEDS: KETOROLAC 30 MG/ML VIAL IVP SCH (21:20)
--- NOTE | 2017-11-15 21:26 | Discharge Inst-Women's Service ---
Discharge Inst-Women's Serv Depart Medication/Instructions New, Converted or Re-Newed RX: RX on Chart Consults/Follow Up Additional Follow Up: Yes Orders/Referrals Dr. Bonner in 7-[address] Hernández in 6 weeks Activity Activity: Activity as Tolerated Driving Instructions: No Driving for 1 Week NO SMOKING: NO SMOKING Nothing Inside Vagina: No Douching, No Danielson, No Tampons Diet Discharge Diet: No Restrictions Symptoms to Report to : Bleeding Excessive, Pain Increased, Fever Over 101 Degrees F, Vaginal Bleeding Increase, Questions/Concerns For Any Problems or Questions: Contact Your Physician Skin/Wound Care Infection Signs and Symptoms: Increased Redness, Foul Odor of Wound, Increased Drainage, Skin Itchy or Has a Rash, Increased Swelling, Temperature Above 101 F Operative Area Clean and Dry: Keep Incision Clean/Dry Stitches/Shena/Dermabond: Dermabond, Care of Stitches Bathing Instructions: ANUSHA Rose DO Nov 15, 2017 9:26 pm
[2017-11-15] MEDS ORDERED: ACHD5005 PO (21:27)
[2017-11-15] MEDS ORDERED: IBUP-844 PO (21:27)
[2017-11-15] MEDS ORDERED: DOCU100C37 PO (21:27)
[2017-11-15] MEDS ORDERED: CATHETER FLUSH 10 ML SYR IV SCH (22:00)
--- NOTE | 2017-11-15 22:26 | OPERATIVE REPORT ---
DATE OF SERVICE: PREOPERATIVE DIAGNOSES: 1. A 32-year-old G6, P5 at 39 weeks gestation. 2. Malpresentation and unstable lie. POSTOPERATIVE DIAGNOSES: 1. A 32-year-old G6, P5 at 39 weeks gestation. 2. Malpresentation and unstable lie. 3. Family history of ovarian cancer. PROCEDURE: Primary low transverse section with risk reducing salpingectomy. SURGEON: Toyn Bonner DO ANESTHESIA: Epidural, which was bolused. ESTIMATED BLOOD LOSS: 200 mL. URINE OUTPUT: 400 mL clear at the end of the procedure. FLUIDS: 1700 mL of lactated Ringer solution. FINDINGS: A live female infant weighing 8 pounds 10 ounces, Apgars of 7 and 9. Grossly normal appearing uterus, bilateral fallopian tubes and ovaries. SPECIMEN SENT: Bilateral fallopian tubes. INDICATIONS: This 32-year-old female was a consultation to me from Dr. Hernández for an unstable lie. She had been followed in my office past couple of weeks, found to be in oblique breech presentation and oblique cephalic presentation on two separate evaluations. This morning, she was evaluated and found to be in the vertex presentation. Artificial rupture of membranes was performed, clear fluid was noted and a scalp electrode was placed. The patient was augmented with Pitocin; however, made no progression in station. Throughout the day finally there was an abrupt change in heart rate tracing pattern with the scalp electrode shortening at the vaginal opening. Reevaluation of the position showed that the infant was in the left oblique vertex presentation; however, I could not engage the head backward in the pelvis. Due to this and my concern for cord prolapse or hand prolapse, I discussed with the patient to proceed with urgent . Risks of procedure were discussed with the patient in detail. After all their questions were answered with the family present, consent was obtained. The patient was taken to the operating room. She was planning on having a risk reducing salpingectomies. External cephalic version was unsuccessful, so consent for this had already been discussed preoperatively and the consultation in my office and consent was obtained prior. Once in the operating room, epidural analgesia was bolused and found to be adequate. She was placed in the supine position with leftward tilt, prepped and draped in normal sterile fashion. A Pfannenstiel skin incision was made with a knife after anesthesia was tested and a timeout was performed. The knife incision was taken then down to the fascia using Bovie cautery. Fascial incision extended laterally using Bovie cautery. Superior aspect of the fascial incision was then grasped with Kenny clamps, tented up and dissected off the underlying rectus muscles. The inferior aspect of the fascial incision was then grasped with Kenny clamps, tented up and dissected off the underlying rectus muscles. Rectus muscle was then dissected down the midline using Mae scissors which exposed the peritoneum which I entered using blunt traction. Cristiano ring retractor was placed in the peritoneal incision, which offered excellent lateral sidewall retraction. I identified the lower uterine segment, but it is not thinned out hardly at all and there is no head palpated through the lower uterine segment. I make a low transverse incision through the segment; however, using a knife and bluntly dissect bladder flap off of the lower uterine segment using the vesicouterine peritoneum. I then proceeded with my myotomy and this is a thick segment until membranes were encountered at which point I extended the uterine incision laterally and superiorly using bandage scissors. The infant was found in the transverse left presentation. I bring the 's head down to the incision. With gentle fundal pressure, the 's head was delivered through the incision where it is bulb suctioned both nares and oropharynx. Anterior and posterior shoulders were delivered. The was then brought to the operative field where the cord was doubly clamped and cut and was handed off to Dr. Hernández who was present for delivery. Cord blood was collected. Three-vessel cord intact placenta was delivered spontaneously thereafter. IV Pitocin was initiated to facilitate uterine contraction. Uterus fundus became firm with bimanual massage. Uterus was exteriorized and cleared of all endometrial clots and debris. I then closed the uterine incision using 0 Vicryl suture in a running locked fashion. A second layer of imbricating 0 Monocryl was placed and a third layer of imbricating 0 Monocryl was placed due to the thickness of the uterine segment after which excellent hemostasis was noted. I then took my attention to the fallopian tubes where starting at the proximal isthmic portion, I performed the following dissection bilaterally. I go across the isthmic portion of the fallopian tube using a LigaSure device, I ligasure to cauterize and cut down the mesosalpinx, the distal ampullary connection point, which amputated the fallopian tube. Once both of these were collected I placed the uterus back in the pelvis and no active bleeding noted from any of my dissection plane. I then placed Interceed antiadhesive over my low transverse incision to pursue closing the peritoneum using 3-0 Vicryl suture in running fashion. The rectus muscle was reapproximated using 3-0 Vicryl suture in interrupted fashion. The fascia reapproximated using 0 Vicryl suture in running fashion. Subcutaneous tissue was reapproximated using 3-0 plain in interrupted subcutaneous stitch and the skin reapproximated using 4-0 Monocryl in a running subcuticular. Dermabond was applied to the incision, sterile dressing with adhesive white tape. Two grams Ancef given preoperatively for infection prophylaxis. The patient tolerated the procedure, brought to the recovery area in stable condition. Lap and sponge counts were correct at the end of the procedure. Instrument count was correct as well. Job ID: [id number] DocumentID: [id number] Dictated Date: 11/15/2017 21:47:49 Reproduction Machine Loader Date: 11/15/2017 22:26:21 Dictated By: DO SARAH ORTIZ
[2017-11-15] MEDS: OXYTOCIN/NORMAL SALINE 500 ML IV SCH (22:45)
[2017-11-15] MEDS: DOCUSATE SODIUM 100 MG (COLACE) CAP PO SCH (22:45)
[2017-11-15] MEDS ORDERED: morphine INJ 10 MG/ML 1ML (SYR OR VIAL) IVP ONE (23:15)
[2017-11-16 00:10] VITALS: BP 114/73
[2017-11-16] MEDS: KETOROLAC 30 MG/ML VIAL IVP SCH (03:02)
[2017-11-16 04:40] VITALS: BP 115/66
[2017-11-16 06:13] LABS: BASOPHILS % (AUTO) 0 % (0-10); EOSINOPHILS % (AUTO) 0 % (0-10); HEMATOCRIT 31 % (35-52); HEMOGLOBIN 10.7 G/DL (11.5-16.0); LYMPHOCYTES # (AUTO) 0.8 X 10^3 (1.0-4.0); LYMPHOCYTES % (AUTO) 6 % (12-44); MEAN CORPUSCULAR HEMOGLOBIN 31 PG (25-34); MEAN CORPUSCULAR HGB CONC 34 G/DL (32-36); MEAN CORPUSCULAR VOLUME 91 FL (80-99); MEAN PLATELET VOLUME 11.3 FL (7.4-10.4); MONOCYTES # (AUTO) 0.5 X 10^3 (0.0-1.0); MONOCYTES % (AUTO) 4 % (0-12); NEUTROPHILS # (AUTO) 11.8 X 10^3 (1.8-7.8); NEUTROPHILS % (AUTO) 90 % (42-75); PLATELET COUNT 178 10^3/uL (130-400); RED BLOOD COUNT 3.45 10^6/uL (4.35-5.85); RED CELL DISTRIBUTION WIDTH 13.3 % (10.0-14.5); WHITE BLOOD COUNT 13.1 10^3/uL (4.3-11.0)
[2017-11-16 07:00] LABS: LYMPHOCYTES % (MANUAL) 9 %; MONOCYTES % (MANUAL) 9 %; NEUTROPHILS % (MANUAL) 82 %
--- NOTE | 2017-11-16 07:11 | Anesthesia-Regional Post-Op ---
Regional Patient Condition Mental Status: Alert, Oriented x3 Circulation: Same as Pre-Op Headache: Absent Sensation: Full Recovery Motor Block: Absent Post Op Complications Complications None Follow Up Care/Instructions Patient Instructions None needed. Anesthesia/Patient Condition Patient is doing well, no complaints, stable vital signs, no apparent adverse anesthesia problems. No complications reported per nursing. D/C home per [facility] [place] Criteria: No LUIS STRONG CRNA Nov 16, 2017 07:11
--- NOTE | 2017-11-16 08:14 | Postpartum Progress Note ---
Note Note Day # 1 Subjective: Patient is without complaints. Ambulating, voiding. Tolerating a regular diet without nausea or vomiting. Normal lochia. Pain is well controlled with oral pain medications. Objective: Vital Sign - Last 24 Hours 11/15/17 11/15/17 11/15/17 11/15/17 08:20 08:35 09:05 09:20 Pulse 73 69 74 88 Resp 20 20 20 20 B/P (MAP) 127/86 (100) 130/78 (95) 136/88 (104) 123/83 (96) O2 Delivery Room Air Room Air Room Air Room Air 11/15/17 11/15/17 11/15/17 11/15/17 09:35 09:50 10:05 10:15 Pulse 76 76 90 70 Resp 20 20 20 20 B/P (MAP) 130/89 (103) 130/76 (94) 139/81 (100) 135/76 (95) O2 Delivery Room Air Room Air Room Air Room Air 11/15/17 11/15/17 11/15/17 11/15/17 10:35 10:50 11:10 11:20 Temp 97.9 Pulse 63 80 73 74 Resp 20 20 20 20 B/P (MAP) 135/88 (104) 125/77 (93) 128/71 (90) 131/78 (95) O2 Delivery Room Air Room Air Room Air Room Air 11/15/17 11/15/17 11/15/17 11/15/17 11:40 11:50 12:05 12:20 Pulse 75 81 77 83 Resp 20 20 20 20 B/P (MAP) 141/92 (108) 120/71 (87) 127/88 (101) 133/80 (97) O2 Delivery Room Air Room Air Room Air Room Air 11/15/17 11/15/17 11/15/17 11/15/17 12:35 12:50 13:05 13:20 Pulse 77 78 77 73 Resp 20 20 20 20 B/P (MAP) 117/69 (85) 117/75 (89) 121/85 (97) 125/81 (96) O2 Delivery Room Air Room Air Room Air Room Air 11/15/17 11/15/17 11/15/17 11/15/17 13:35 13:50 14:05 14:20 Pulse 75 78 74 75 Resp 20 20 20 20 B/P (MAP) 132/70 (90) 130/78 (95) 137/84 (101) 140/83 (102) O2 Delivery Room Air Room Air Room Air Room Air 11/15/17 11/15/17 11/15/17 11/15/17 14:35 14:50 15:15 15:30 Temp 97.9 Pulse 77 74 75 Resp 20 20 20 B/P (MAP) 110/66 (81) 135/85 (102) 129/75 (93) O2 Delivery Room Air Room Air Room Air Room Air 11/15/17 11/15/17 11/15/17 11/15/17 15:45 16:00 16:15 16:30 B/P (MAP) O2 Delivery Room Air Room Air Room Air Room Air 11/15/17 11/15/17 11/15/17 11/15/17 16:40 16:45 16:47 16:54 Pulse 86 86 90 78 Resp 20 20 20 20 B/P (MAP) 156/87 (110) 156/87 (110) 150/68 (95) 139/77 (97) Pulse Ox 98 100 99 99 O2 Delivery Room Air Room Air Room Air Room Air 11/15/17 11/15/17 11/15/17 11/15/17 16:55 17:00 17:03 17:15 Pulse 81 89 86 104 Resp 20 20 20 20 B/P (MAP) 125/77 (93) 125/87 (100) 143/64 (90) 117/68 (84) Pulse Ox 99 99 99 98 O2 Delivery Room Air Room Air Room Air Room Air 11/15/17 11/15/17 11/15/17 11/15/17 17:30 17:45 18:00 18:15 Temp 99.2 99.9 Pulse 100 86 86 74 Resp 20 20 20 20 B/P (MAP) 110/68 (82) 120/69 (86) 129/67 (87) 128/67 (87) Pulse Ox 99 99 98 99 O2 Delivery Room Air Room Air Room Air Room Air 11/15/17 11/15/17 11/15/17 11/15/17 18:30 18:45 19:00 19:15 Temp 99.7 Pulse 93 87 88 104 Resp 20 20 20 20 B/P (MAP) 131/72 (91) 119/72 (88) 124/78 (93) 130/95 (107) Pulse Ox 99 99 99 O2 Delivery Room Air Room Air Room Air Room Air 11/15/17 11/15/17 11/15/17 11/15/17 19:30 19:45 20:00 20:15 Pulse 76 82 75 88 Resp 20 20 20 20 B/P (MAP) 124/69 (87) 123/69 (87) 116/66 (83) 118/69 (85) O2 Delivery Room Air Room Air Room Air Room Air 11/16/17 11/16/17 00:10 04:40 Temp 98.1 98.4 Pulse 83 73 Resp 20 20 B/P (MAP) 114/73 (87) 115/66 (82) Pulse Ox 97 96 O2 Delivery Room Air Room Air Intake and Output 11/15/17 11/15/17 11/16/17 15:00 23:00 07:00 Intake Total 1500 ml 4050 ml 1400 ml Output Total 460 ml 450 ml Balance 1500 ml 3590 ml 950 ml Physical Exam: General - Alert and oriented, no apparent distress Abdomen - Soft, appropriately tender to palpation, non-distended, fundus firm at umbilicus Extremities - no edema, negative Steven's bilaterally Assessment: POD 1 PLTCS RRS Acute blood loss anemia Plan: Routine care. Encourage breast feeding. Encourage ambulation. Ferrous sulfate supplementation. Plan for discharge tomorrow Vitals - Labs Vital Signs - I&O Vital Signs Date Time Temp Pulse Resp B/P (MAP) Pulse Ox O2 Delivery O2 Flow Rate FiO2 11/16/17 04:40 98.4 73 20 115/66 (82) 96 Room Air 11/16/17 00:10 98.1 83 20 114/73 (87) 97 Room Air 11/15/17 20:15 88 20 118/69 (85) Room Air 11/15/17 20:00 75 20 116/66 (83) Room Air 11/15/17 19:45 82 20 123/69 (87) Room Air 11/15/17 19:30 76 20 124/69 (87) Room Air 11/15/17 19:15 99.7 104 20 130/95 (107) Room Air 11/15/17 19:00 88 20 124/78 (93) 99 Room Air 10/11/18 18:45 87 20 119/72 (88) 99 Room Air 11/15/17 18:30 93 20 131/72 (91) 99 Room Air 11/15/17 18:15 99.9 74 20 128/67 (87) 99 Room Air 11/15/17 18:00 86 20 129/67 (87) 98 Room Air 11/15/17 17:45 99.2 86 20 120/69 (86) 99 Room Air 11/15/17 17:30 100 20 110/68 (82) 99 Room Air 11/15/17 17:15 104 20 117/68 (84) 98 Room Air 11/15/17 17:03 86 20 143/64 (90) 99 Room Air 11/15/17 17:00 89 20 125/87 (100) 99 Room Air 11/15/17 16:55 81 20 125/77 (93) 99 Room Air 11/15/17 16:54 78 20 139/77 (97) 99 Room Air 11/15/17 16:47 90 20 150/68 (95) 99 Room Air 11/15/17 16:45 86 20 156/87 (110) 100 Room Air 11/15/17 16:40 86 20 156/87 (110) 98 Room Air 11/15/17 16:30 Room Air 11/15/17 16:15 Room Air 11/15/17 16:00 Room Air 11/15/17 15:45 Room Air 11/15/17 15:30 Room Air 11/15/17 15:15 97.9 75 20 129/75 (93) Room Air 11/15/17 14:50 74 20 135/85 (102) Room Air 11/15/17 14:35 77 20 110/66 (81) Room Air 11/15/17 14:20 75 20 140/83 (102) Room Air 11/15/17 14:05 74 20 137/84 (101) Room Air 11/15/17 13:50 78 20 130/78 (95) Room Air 11/15/17 13:35 75 20 132/70 (90) Room Air 11/15/17 13:20 73 20 125/81 (96) Room Air 11/15/17 13:05 77 20 121/85 (97) Room Air 11/15/17 12:50 78 20 117/75 (89) Room Air 11/15/17 12:35 77 20 117/69 (85) Room Air 11/15/17 12:20 83 20 133/80 (97) Room Air 11/15/17 12:05 77 20 127/88 (101) Room Air 11/15/17 11:50 81 20 120/71 (87) Room Air 11/15/17 11:40 75 20 141/92 (108) Room Air 11/15/17 11:20 97.9 74 20 131/78 (95) Room Air 11/15/17 11:10 73 20 128/71 (90) Room Air 11/15/17 10:50 80 20 125/77 (93) Room Air 11/15/17 10:35 63 20 135/88 (104) Room Air 11/15/17 10:15 70 20 135/76 (95) Room Air 11/15/17 10:05 90 20 139/81 (100) Room Air 11/15/17 09:50 76 20 130/76 (94) Room Air 11/15/17 09:35 76 20 130/89 (103) Room Air 11/15/17 09:20 88 20 123/83 (96) Room Air 11/15/17 09:05 74 20 136/88 (104) Room Air 11/15/17 08:35 69 20 130/78 (95) Room Air 11/15/17 08:20 73 20 127/86 (100) Room Air I & O 11/16/17 07:00 Intake Total 6950 ml Output Total 910 ml Balance 6040 ml Labs Laboratory Tests 11/16/17 05:45: White Blood Count 13.1H, Red Blood Count 3.45L, Hemoglobin 10.7L, Hematocrit 31L , Mean Corpuscular Volume 91, Mean Corpuscular Hemoglobin 31, Mean Corpuscular Hemoglobin Concent 34, Red Cell Distribution Width 13.3, Platelet Count 178, Mean Platelet Volume 11.3H, Neutrophils (%) (Auto) 90H, Lymphocytes (%) (Auto) 6L, Monocytes (%) (Auto) 4, Eosinophils (%) (Auto) 0, Basophils (%) (Auto) 0, Neutrophils # (Auto) 11.8H, Lymphocytes # (Auto) 0.8L, Monocytes # (Auto) 0.5, Eosinophils # (Auto) 0.0, Basophils # (Auto) 0.0, Neutrophils % (Manual) 82, Lymphocytes % (Manual) 9, Monocytes % (Manual) 9 ANUSHA SMALL DO Nov 16, 2017 8:14 am
[2017-11-16] MEDS: DOCUSATE SODIUM 100 MG (COLACE) CAP PO SCH ×2 (08:42→21:04)
[2017-11-16] MEDS: OXYTOCIN/NORMAL SALINE 500 ML IV SCH (08:43)
[2017-11-16] MEDS: IBUPROFEN 600 MG (MOTRIN) TAB PO SCH ×3 (08:43→21:03)
[2017-11-16 08:46] VITALS: BP 109/68
[2017-11-16 11:25] VITALS: BP 103/66
[2017-11-16] MEDS: HYDROcodone/APAP 5 MG/325 MG (LORTAB) TAB PO PRN ×2 (11:38→18:13)
[2017-11-16 14:49] VITALS: BP 103/65
[2017-11-16 18:13] VITALS: BP 119/71
[2017-11-17 01:01] VITALS: BP 124/82
[2017-11-17] MEDS: IBUPROFEN 600 MG (MOTRIN) TAB PO SCH ×3 (03:23→17:06)
[2017-11-17 05:37] VITALS: BP 100/58
--- NOTE | 2017-11-17 09:16 | Postpartum Progress Note ---
Note Note Day # 2 Subjective: Patient is without complaints. Ambulating, voiding. Tolerating a regular diet without nausea or vomiting. Normal lochia. Pain is well controlled with oral pain medications. Objective: Physical Exam: General - Alert and oriented, no apparent distress Abdomen - Soft, appropriately tender to palpation, non-distended, fundus firm at umbilicus Extremities - no edema, negative Steven's bilaterally Incision- c/d/i Assessment: POD 2 PLTCS w/ RRS Plan: Routine care. Encourage breast feeding. Encourage ambulation. Ferrous sulfate supplementation. Plan for discharge today Vitals - Labs Vital Signs - I&O Vital Signs Date Time Temp Pulse Resp B/P (MAP) Pulse Ox O2 Delivery O2 Flow Rate FiO2 11/17/17 05:37 97.8 75 16 100/58 (72) 98 Room Air 11/17/17 01:01 97.4 83 16 124/82 (96) 98 Room Air 11/16/17 18:13 97.6 77 16 119/71 (87) 98 Room Air 11/16/17 14:49 97.4 74 18 103/65 (78) 96 Room Air 11/16/17 11:25 97.6 84 18 103/66 (78) 97 Room Air GEOVANNYANUSHA Fernandez Nov 17, 2017 9:16 am
[2017-11-17 11:08] VITALS: BP 127/82
[2017-11-17] MEDS: DOCUSATE SODIUM 100 MG (COLACE) CAP PO SCH (11:08)
[2017-11-17] MEDS: HYDROcodone/APAP 5 MG/325 MG (LORTAB) TAB PO PRN (11:13)
[2017-11-17] MEDS ORDERED: ONDANSETRON 4 MG (ZOFRAN) ORAL DISSOLVE TAB PO PRN (12:45)
[2017-11-17] MEDS ORDERED: morphine INJ 10 MG/ML 1ML (SYR OR VIAL) IJ ONE (12:45)
[2017-11-17] MEDS ORDERED: ONDANSETRON 8 MG (ZOFRAN) ORAL DISSOLVE TAB ONE (12:46)
== END 2017-11-17 17:45 | disposition home or self-care (01) | DRG 785 ==
LOC: LDRP 11-15 06:01 → WS 11-15 22:40
PROVIDERS: ADMIT Obstetrics & Gynecology; ATTEND Obstetrics & Gynecology
PROC: 0UT70ZZ Resection of Bilateral Fallopian Tubes, Open Approach (ICD-10-PCS; 2017-11-15)
PROC: 10D00Z1 Extraction of Products of Conception, Low, Open Approach (ICD-10-PCS; principal; 2017-11-15 20:20)
DX: O32.2XX0 Maternal care for transverse and oblique lie, not applicable or unspecified (principal); O90.81 Anemia of the puerperium; O99.613 Diseases of the digestive system complicating pregnancy, third trimester; K21.9 Gastro-esophageal reflux disease without esophagitis; O99.713 Diseases of the skin and subcutaneous tissue complicating pregnancy, third trimester; L73.2 Hidradenitis suppurativa; Z80.41 Family history of malignant neoplasm of ovary; Z3A.39 39 weeks gestation of pregnancy; Z37.0 Single live birth
CPT/HCPCS: 36415; 83033; 85007; 85025; 85027; 86850; 86900; 86901; 88302; 88307; 94664

== ENCOUNTER → 2021-07-18 | Outpatient (CLI) | payer OTHER ==
[~2021-07-18] MED LIST changes: +DOCU100C37 PO; +IBUP-844 PO
== END ==
LOC: WOUNDCARE 08:08
PROVIDERS: ATTEND Family Medicine
DX: L97.222 Non-pressure chronic ulcer of left calf with fat layer exposed (principal); I87.332 Chronic venous hypertension (idiopathic) with ulcer and inflammation of left lower extremity; E66.01 Morbid (severe) obesity due to excess calories; I89.0 Lymphedema, not elsewhere classified; L03.116 Cellulitis of left lower limb; I83.022 Varicose veins of left lower extremity with ulcer of calf
CPT/HCPCS: 11042; 87070; 87077; 87205; A6197; G0463

== ENCOUNTER → 2021-07-20 | Outpatient (CLI) | payer OTHER ==
[2021-07-20 14:32] LABS: BASOPHILS % (AUTO) 1 % (0-10); EOSINOPHILS # (AUTO) 0.1 10^3/uL (0.0-0.3); EOSINOPHILS % (AUTO) 2 % (0-10); HEMATOCRIT 38 % (35-52); HEMOGLOBIN 12.6 g/dL (11.5-16.0); LYMPHOCYTES # (AUTO) 2.1 X 10^3 (1.0-4.0); LYMPHOCYTES % (AUTO) 32 % (12-44); MEAN CORPUSCULAR HEMOGLOBIN 28 pg (25-34); MEAN CORPUSCULAR HGB CONC 33 g/dL (32-36); MEAN CORPUSCULAR VOLUME 85 fL (80-99); MEAN PLATELET VOLUME 10.3 fL (9.0-12.2); MONOCYTES # (AUTO) 0.5 X 10^3 (0.0-1.0); MONOCYTES % (AUTO) 8 % (0-12); NEUTROPHILS # (AUTO) 3.8 X 10^3 (1.8-7.8); NEUTROPHILS % (AUTO) 58 % (42-75); PLATELET COUNT 254 10^3/uL (130-400); WHITE BLOOD COUNT 6.6 10^3/uL (4.3-11.0)
[2021-07-20 14:48] LABS: ALBUMIN 3.9 GM/DL (3.2-4.5); BILIRUBIN,TOTAL 0.4 MG/DL (0.1-1.0); CALCIUM 9.7 MG/DL (8.5-10.1); CREATININE SERUM 0.79 MG/DL (0.60-1.30); POTASSIUM 4.1 MMOL/L (3.6-5.0); TOTAL PROTEIN 7.4 GM/DL (6.4-8.2)
== END ==
LOC: LAB 13:56
PROVIDERS: ATTEND Family Medicine
DX: L97.222 Non-pressure chronic ulcer of left calf with fat layer exposed (principal); I87.332 Chronic venous hypertension (idiopathic) with ulcer and inflammation of left lower extremity; E66.01 Morbid (severe) obesity due to excess calories; I89.0 Lymphedema, not elsewhere classified; L03.116 Cellulitis of left lower limb; I83.022 Varicose veins of left lower extremity with ulcer of calf
CPT/HCPCS: 36415; 80053; 83036; 85025

== ENCOUNTER → 2021-07-26 | Outpatient (CLI) | payer OTHER | LOC: WOUNDCARE 12:35 | PROVIDERS: ATTEND Family Medicine | DX: L97.222 Non-pressure chronic ulcer of left calf with fat layer exposed (principal); I87.332 Chronic venous hypertension (idiopathic) with ulcer and inflammation of left lower extremity; E66.01 Morbid (severe) obesity due to excess calories; I89.0 Lymphedema, not elsewhere classified; L03.116 Cellulitis of left lower limb; I83.022 Varicose veins of left lower extremity with ulcer of calf; B96.5 Pseudomonas (aeruginosa) (mallei) (pseudomallei) as the cause of diseases classified elsewhere; B95.61 Methicillin susceptible Staphylococcus aureus infection as the cause of diseases classified elsewhere; I96 Gangrene, not elsewhere classified | CPT/HCPCS: 11042; A6207; G0463 ==

== ENCOUNTER → 2021-07-29 | Outpatient (CLI) | payer OTHER | LOC: WOUNDCARE 08:35 | PROVIDERS: ATTEND Family Medicine | DX: S81.802A Unspecified open wound, left lower leg, initial encounter (principal) ==

== ENCOUNTER → 2021-08-02 | Outpatient (CLI) | payer OTHER | LOC: WOUNDCARE 11:13 | PROVIDERS: ATTEND Family Medicine | DX: I87.332 Chronic venous hypertension (idiopathic) with ulcer and inflammation of left lower extremity (principal); L97.222 Non-pressure chronic ulcer of left calf with fat layer exposed; I89.0 Lymphedema, not elsewhere classified; L03.116 Cellulitis of left lower limb; B96.5 Pseudomonas (aeruginosa) (mallei) (pseudomallei) as the cause of diseases classified elsewhere; E66.01 Morbid (severe) obesity due to excess calories; I96 Gangrene, not elsewhere classified; Z68.42 Body mass index [BMI] 45.0-49.9, adult | CPT/HCPCS: 11042; A6207; G0463 ==

== ENCOUNTER → 2021-08-09 | Outpatient (CLI) | payer OTHER | LOC: WOUNDCARE 13:31 | PROVIDERS: ATTEND Family Medicine | DX: L97.222 Non-pressure chronic ulcer of left calf with fat layer exposed (principal); I87.332 Chronic venous hypertension (idiopathic) with ulcer and inflammation of left lower extremity; E66.01 Morbid (severe) obesity due to excess calories; I89.0 Lymphedema, not elsewhere classified; L03.116 Cellulitis of left lower limb; I83.022 Varicose veins of left lower extremity with ulcer of calf; B96.5 Pseudomonas (aeruginosa) (mallei) (pseudomallei) as the cause of diseases classified elsewhere; B95.61 Methicillin susceptible Staphylococcus aureus infection as the cause of diseases classified elsewhere; I96 Gangrene, not elsewhere classified | CPT/HCPCS: 11042; A6197; G0463 ==

== ENCOUNTER → 2021-08-22 | Outpatient (CLI) | payer OTHER | LOC: WOUNDCARE 08:49 | PROVIDERS: ATTEND Family Medicine | DX: L97.222 Non-pressure chronic ulcer of left calf with fat layer exposed (principal); I87.332 Chronic venous hypertension (idiopathic) with ulcer and inflammation of left lower extremity; E66.01 Morbid (severe) obesity due to excess calories; I89.0 Lymphedema, not elsewhere classified; I83.022 Varicose veins of left lower extremity with ulcer of calf; I96 Gangrene, not elsewhere classified | CPT/HCPCS: 11042; A6021; A6212; G0463 ==

== ENCOUNTER → 2021-08-31 | Outpatient (CLI) | payer OTHER | LOC: WOUNDCARE 08:38 | PROVIDERS: ATTEND Family Medicine | DX: L97.222 Non-pressure chronic ulcer of left calf with fat layer exposed (principal); I87.333 Chronic venous hypertension (idiopathic) with ulcer and inflammation of bilateral lower extremity; I89.0 Lymphedema, not elsewhere classified; I83.022 Varicose veins of left lower extremity with ulcer of calf | CPT/HCPCS: 11042; A6021; A6212; G0463 ==

== ENCOUNTER → 2021-09-05 | Outpatient (CLI) | payer OTHER | LOC: WOUNDCARE 08:36 | PROVIDERS: ATTEND Family Medicine | DX: L97.222 Non-pressure chronic ulcer of left calf with fat layer exposed (principal); I87.332 Chronic venous hypertension (idiopathic) with ulcer and inflammation of left lower extremity; E66.01 Morbid (severe) obesity due to excess calories; I89.0 Lymphedema, not elsewhere classified; I83.028 Varicose veins of left lower extremity with ulcer other part of lower leg; I96 Gangrene, not elsewhere classified | CPT/HCPCS: 11042; A6197; A6212; G0463 ==

== ENCOUNTER → 2021-09-12 | Outpatient (CLI) | payer OTHER | LOC: WOUNDCARE 08:33 | PROVIDERS: ATTEND Family Medicine | DX: I96 Gangrene, not elsewhere classified (principal); L97.222 Non-pressure chronic ulcer of left calf with fat layer exposed; I87.332 Chronic venous hypertension (idiopathic) with ulcer and inflammation of left lower extremity; I89.0 Lymphedema, not elsewhere classified; E66.01 Morbid (severe) obesity due to excess calories; L03.116 Cellulitis of left lower limb; B37.2 Candidiasis of skin and nail; Z68.42 Body mass index [BMI] 45.0-49.9, adult | CPT/HCPCS: 11042; 87070; 87077; 87205; A6212; G0463 ==

== ENCOUNTER → 2021-09-19 | Outpatient (CLI) | payer OTHER | LOC: WOUNDCARE 08:32 | PROVIDERS: ATTEND Family Medicine | DX: I96 Gangrene, not elsewhere classified (principal); I87.332 Chronic venous hypertension (idiopathic) with ulcer and inflammation of left lower extremity; L97.222 Non-pressure chronic ulcer of left calf with fat layer exposed; E66.01 Morbid (severe) obesity due to excess calories; I89.0 Lymphedema, not elsewhere classified; L03.116 Cellulitis of left lower limb; B37.2 Candidiasis of skin and nail; A49.01 Methicillin susceptible Staphylococcus aureus infection, unspecified site; Z68.42 Body mass index [BMI] 45.0-49.9, adult | CPT/HCPCS: 11042; A6197; A6212; G0463 ==

== ENCOUNTER → 2021-09-29 | Outpatient (CLI) | payer OTHER | LOC: WOUNDCARE 13:18 | PROVIDERS: ATTEND Family Medicine | DX: I83.022 Varicose veins of left lower extremity with ulcer of calf (principal); L97.222 Non-pressure chronic ulcer of left calf with fat layer exposed; E66.01 Morbid (severe) obesity due to excess calories; I89.0 Lymphedema, not elsewhere classified; B37.2 Candidiasis of skin and nail; I96 Gangrene, not elsewhere classified | CPT/HCPCS: 11042; G0463 ==